=== PATIENT | male | born 1960 | race African-American/Black ===

== ENCOUNTER 2016-05-25 09:05 | Emergency (ER) | payer MEDICAID ==
[2016-05-25 09:28] VITALS: BP 102/67
[2016-05-25] MEDS ORDERED: ALBUTEROL SULFATE HFA (90 MCG/PUFF) 8 GM MDI (1 MDI/ER DISP) IH ONE (09:52)
[2016-05-25] MEDS ORDERED: PREDNISONE 20 MG TABLET PO ONE (09:52)
--- NOTE | 2016-05-25 09:52 | ER Document Report ---
ED Respiratory Problem - General Chief Complaint: Cold Symptoms Stated Complaint: FLU SYMPTOMS Time seen by provider: 09:40 Mode of Arrival: Ambulatory Information source: Patient, [facility] Records Notes: This 55-year-old male patient comes emergency room complaining of onset Monday of flulike symptoms with nasal congestion, cough, wheezing, pain crosses lower anterior chest from coughing. It hurts worse when he takes deep breath and coughs. He did not get a flu shot this year. He does smoke on a daily basis. He states he has never had problem wheezing in the past. TRAVEL OUTSIDE OF THE [place] IN LAST 30 DAYS: No - Related Data Allergies/Adverse Reactions: Penicillins Allergy (Verified 05/25/16 09:23) HIVES, RASH, FEELS LIKE ON FIRE Past Medical History - General Information source: Patient, [facility] Records - Social History Smoking Status: Current Every Day Smoker Cigarette use (# per day): Yes Chew tobacco use (# tins/day): No Smoking Education Provided: No Frequency of alcohol use: Occasional Drug Abuse: None Occupation: unemployed Lives with: Family Family History: Reviewed & Not Pertinent Patient has suicidal ideation: No Patient has homicidal ideation: No - Past Medical History Cardiac Medical History: Reports: None Pulmonary Medical History: Reports: None EENT Medical History: Reports: None Neurological Medical History: Reports: None Endocrine Medical History: Reports: None Renal/ Medical History: Reports: None GI Medical History: Reports: None Musculoskeltal Medical History: Reports Hx Arthritis, Reports Hx Musculoskeletal Trauma Psychiatric Medical History: Reports: None Traumatic Medical History: Reports: Hx Fractures - C-spinew FX's Past Surgical History: Reports: Hx Orthopedic Surgery - NECK SURGERY, RIGHT FOOT SURGERY, both shoulders - Immunizations Hx Diphtheria, Pertussis, Tetanus Vaccination: Yes Review of Systems - Review of Systems Constitutional: Chills, Fever, Other - Myalgia EENT: Nose discharge, Sinus discharge Cardiovascular: No symptoms reported Respiratory: Cough, Wheezing Gastrointestinal: No symptoms reported Genitourinary: No symptoms reported Musculoskeletal: No symptoms reported Skin: No symptoms reported Hematologic/Lymphatic: No symptoms reported Neurological/Psychological: No symptoms reported Physical Exam - Vital signs Vitals: Temp Pulse Resp BP Pulse Ox 98.4 F 112 H 18 102/67 96 05/25/16 09:22 05/25/16 09:22 05/25/16 09:22 05/25/16 09:22 05/25/16 09:22 Interpretation: Normal - General General appearance: Appears well, Alert In distress: None - HEENT Head: Normocephalic, Atraumatic Eyes: Normal Pupils: PERRL Tympanic membrane: Retracted Nasal: Other - Some nasal and sinus congestion Pharynx: Erythema. No: Exudate, Uvular edema Neck: Normal - Respiratory Respiratory status: No respiratory distress Chest status: Tender Breath sounds: Nonproductive cough, Rhonchi, Wheezing - Cardiovascular Rhythm: Regular - Abdominal Inspection: Normal - Back Back: Normal - Extremities General upper extremity: Normal inspection General lower extremity: Normal inspection - Neurological Neuro grossly intact: Yes - Psychological Associated symptoms: Normal affect, Normal mood - Skin Skin Temperature: Warm Skin Moisture: Dry Skin Color: Normal Course - Vital Signs Vital signs: Temp Pulse Resp BP Pulse Ox 98.4 F 112 H 18 102/67 96 05/25/16 09:22 05/25/16 09:22 05/25/16 09:22 05/25/16 09:22 05/25/16 09:22 Discharge - Discharge Clinical Impression: Influenza, Bronchitis with bronchospasm Condition: Good Disposition: HOME, SELF-CARE Additional Instructions: Bronchitis with Bronchospasm (Wheezing): You have bronchitis with bronchospasm (wheezing). Sometimes people develop wheezing with a chest cold. This occurs either because of an underlying tendency toward asthma or because the virus itself irritates the bronchial tubes. This irritation causes cough, shortness of breath, and wheezing. Emergency treatment of bronchospasm may include adrenaline shots or bronchodilator aerosol. You may feel lightheaded and have a rapid pulse for an hour or two. Rest and get plenty of fluids. At home, we'll treat you with a bronchodilator inhaler. Corticosteroids may be required for some patients. Until you recover, avoid chemical fumes, dusts, pollens, and exercising in very cold or dry air. If you smoke, stop now! Most cases of bronchitis get better without antibiotics. We prescribe antibiotics when we believe bacteria are damaging your airways, or if there's high risk the bronchitis will worsen into pneumonia. Increase your fluid intake. A cool mist humidifier may make your lungs more comfortable. An expectorant (cough medicine that loosens phlegm) can help. Repeated episodes of bronchitis and bronchospasm may result in lung damage -- for example, chronic bronchitis, recurrent pneumonias, or emphysema. If you develop a fever, increased wheezing, chest pain, or severe shortness of breath, you should contact the doctor immediately. Influenza: What are conditions that should receive medical attention? The development of difficulty breathing. Lip color changes to blue or purple. Persistent vomiting and unable to keep liquids down with signs of dehydration such as: dizziness when standing, unable to urinate, or if child/ is crying no tears are noticed. Is less responsive than normal or becomes confused. How do I decrease the spread of flu in my home? Taking care of the sick patient at home: Keep the sick person in a room separate from the common areas of the house. Keep the "sickroom" door closed. If the person with the flu needs to leave the home, they should cover their nose/mouth when coughing or sneezing and wear a disposable (surgical) mask if available. These masks may be available at your local pharmacy, medical supply and hardware store. If the sick person is in common areas of the house, have them wear a surgical mask. If possible, have the sick person use a separate bathroom that should be cleaned daily with a household disinfectant. Household Cleaning, laundry and waste disposal: Tissues and other disposable items used by the sick person should be thrown away in the trash. Wash your hands after touching these used items. No special waste disposal is required. Keep surfaces (especially bedside tables, bathroom surfaces, and toys for children) clean by wiping them down with a safe household disinfectant according to the directions on the product label. Per CDC advice, most people will not receive testing to confirm flu. For more information, you can call the Centers for Disease Control and Prevention (CDC) Hotline at 9-022-AYP-INFO This line is available in Latvian and Estonian, 24 hours a day, 7 days a week. Or www.[employer] or www.cdc.gov Flu-Like Illness Home Instructions: The influenza virus infection can cause a wide rage of symptoms, including: Fever, cough, sore throat, body aches, headaches, chills, fatigue, with some patients reporting diarrhea and vomiting Like seasonal influenza A, H1N1 ("swine flu")in humans can vary in severity from mild to severe Severe illness with pneumonia, respiratory failure and even is possible Certain groups might be more likely to develop a severe illness from H1N1 infection. Sometimes bacterial infections may occur at the same time as or after infection with influenza viruses and lead to pneumonias, ear infections, or sinus infections. How Flu Spreads The main way that influenza viruses spread is through respiratory droplets of coughs and sneezes. This can happen when someone with the infection coughs or sneezes and the particles fly through the air and land on other people and surfaces. If the person covers their mouth and nose with their hand but does not wash their hands immediately, then these germs are passed onto the next object that they touch. People with Influenza A who are cared for at home should: Check with their doctor about any special care that they might need if they are or have a health condition such as diabetes, heart disease, asthma or emphysema. Also, limit caregiver to one (if possible). women or those with chronic health conditions should not take care of the flu patient unless necessary. Check with their doctor about whether or not medications are needed that may lessen the symptoms of the flu. Stay at home until 24 hours fever free without the use of fever reducing medication. Get plenty of rest and avoid other healthy people in your home. Drink plenty of clear liquids to keep from getting dehydrated. Take medications like Tylenol (Acetaminophen), Advil/Motrin/Nuprin ( Ibuprofen) or Aleve (Naproxen) for fevers and aches. All children under the age of 18 years of age should not take aspirin or products containing aspirin (e.g. Pepto Bismol), as this can cause a rare serious illness called Jay Syndrome. Over the counter medications for flu and colds may help, but it is very important to follow the package directions. Remember that the medicine may help the symptoms, but it will not help prevent others from getting sick if they are around you. Cover coughs and sneezes using your bent arm. Clean hands with soap and water or an alcohol-based hand rub often, especially after using tissues to cough or sneeze. Encourage hand washing frequently for all people living in the home! The sick person should not have visitors other than caregivers. Encourage concerned loved ones to call instead of visit. Avoid close contact with others-do not go to work or school while sick. TAKE THE MEDICATION PRESCRIBED--START THE PREDNISONE TOMORROW USE THE INHALER 2 PUFFS EVERY FOUR HOURS FOR WHEEZING. TAKE TYLENOL EVERY FOUR HOURS FOR FEVER. TAKE 2 ALEVE EVERY 12 HOURS FOR PAIN CONTROL. DRINK PLENTY OF FLUIDS. TRY ROBITUSSIN-DM FOR COUGH CONTROL. GET PLENTY OF REST AND SLEEP. GET A FLU SHOT NEXT YEAR. RETURN TO THE EMERGENCY ROOM IF ANY NEW OR WORSENING SYMPTOMS. Prescriptions: Prednisone [Deltasone 10 mg Tablet] 10 mg PO ASDIR PRN #15 tablet PRN Reason: Referrals: MOSHE ELY MD [Primary Care Provider] - Follow up as needed
[2016-05-25] MEDS ORDERED: NAPROXEN 250 MG TABLET PO ONE (09:54)
== END 2016-05-25 10:07 | disposition home or self-care (01) ==
LOC: ER 09:05
DX: J11.1 Influenza due to unidentified influenza virus with other respiratory manifestations (principal); J40 Bronchitis, not specified as acute or chronic; J98.01 Acute bronchospasm; R09.81 Nasal congestion; R05 Cough; R06.2 Wheezing; R07.9 Chest pain, unspecified; F17.210 Nicotine dependence, cigarettes, uncomplicated
CPT/HCPCS: 99283; J3490 ×2; J7512

== ENCOUNTER 2019-09-06 10:43 | Emergency (ER) | payer SELFPAY ==
--- NOTE | 2019-09-06 10:57 | ER Document Report ---
ED Medical Screen (RME) - General Chief Complaint: Urinary Problem Stated Complaint: URINARY PROBLEM Time Seen by Provider: 09/06/19 10:55 Primary Care Provider: MOSHE ELY MD [Primary Care Provider] - Follow up as needed Information source: Patient TRAVEL OUTSIDE OF THE [place] IN LAST 30 DAYS: No - HPI Patient complains to provider of: Bright red blood per rectum Severity: Moderate Notes: 09/06/19 10:56 Is 59-year-old male presents to the emergency room today said he had bright red blood per rectum felt that it was a significant amount happened twice once a day before yesterday once today did not turn the whole bowl red however there was dark red blood consistent with jelly type substance 09/06/19 10:57 I greeted and performed a rapid initial assessment of this patient. Comprehensive ED assessment and evaluation of the patient, analysis of test results and completion of the medical decision making process will be conducted by additional ED providers. - Related Data Allergies/Adverse Reactions: Penicillins Allergy (Verified 05/25/16 09:23) HIVES, RASH, FEELS LIKE ON FIRE Past Medical History - Past Medical History Cardiac Medical History: Denies: Hx Coronary Artery Disease, Hx Heart Attack, Hx Hypertension Pulmonary Medical History: Denies: Hx Asthma, Hx Bronchitis, Hx COPD, Hx Pneumonia, Hx Tuberculosis Neurological Medical History: Denies: Hx Cerebrovascular Accident, Hx Seizures Endocrine Medical History: Denies: Hx Diabetes Mellitus Type 1, Hx Diabetes Mellitus Type 2 Renal/ Medical History: Denies: Hx Peritoneal Dialysis GI Medical History: Denies: Hx Hepatitis, Hx Hiatal Hernia, Hx Ulcer Musculoskeltal Medical History: Reports Hx Arthritis, Reports Hx Musculoskeletal Trauma Traumatic Medical History: Reports: Hx Fractures - C-spinew FX's Infectious Medical History: Denies: Hx Hepatitis Past Surgical History: Reports: Hx Orthopedic Surgery - NECK SURGERY, RIGHT FOOT SURGERY. Denies: Hx Open Heart Surgery, Hx Pacemaker - Immunizations Hx Diphtheria, Pertussis, Tetanus Vaccination: Yes Doctor's Discharge - Discharge Referrals: MOSHE ELY MD [Primary Care Provider] - Follow up as needed
[2019-09-06 11:24] LABS: HEMATOCRIT 35.5 % (37.9-51.0); MEAN CORPUSCULAR HEMOGLOBIN 29.1 pg (27.0-33.4); MEAN CORPUSCULAR HGB CONC 33.8 g/dL (32.0-36.0); MEAN CORPUSCULAR VOLUME 86 fl (80-97); PLATELET COUNT 202 10^3/uL (150-450); RED BLOOD COUNT 4.12 10^6/uL (4.35-5.55); RED CELL DISTRIBUTION WIDTH 16.2 % (11.5-14.0)
[2019-09-06 11:32] LABS: APPEARANCE,URINE CLEAR; BILIRUBIN,URINE NEGATIVE (NEGATIVE); COLOR,URINE YELLOW; GLUCOSE, URINE NEGATIVE (NEGATIVE); KETONES,URINE NEGATIVE (NEGATIVE); LEUKOCYTE ESTERASE,URINE NEGATIVE (NEGATIVE); NITRITE,URINE NEGATIVE (NEGATIVE); PROTEIN,URINE NEGATIVE (NEGATIVE); URINE SPECIFIC GRAVITY 1.012; UROBILINOGEN,URINE NEGATIVE mg/dL (<2.0)
[2019-09-06 11:45] LABS: ABSOLUTE MONOCYTES # (MANUAL) 0.4 10^3/uL (0.1-1.4); BASOPHILS % (MANUAL) 0 % (0-2); EOSINOPHILS % (MANUAL) 1 % (0-6); LYMPHOCYTES % (MANUAL) 36 % (13-45); MONOCYTES % (MANUAL) 8 % (3-13); SEGMENTED NEUTROPHILS % (MAN) 52 % (42-78); TOTAL CELLS COUNTED 100
[2019-09-06 11:46] LABS: ALBUMIN 4.1 g/dL (3.5-5.0); ALKALINE PHOSPHATASE 66 U/L (38-126); ANION GAP 5 (5-19); ASPARTATE AMINO TRANSFERASE 40 U/L (17-59); BILIRUBIN,TOTAL 0.3 mg/dL (0.2-1.3); BLOOD UREA NITROGEN 19 mg/dL (7-20); CALCIUM 9.5 mg/dL (8.4-10.2); CARBON DIOXIDE 23 mmol/L (22-30); CHLORIDE 107 mmol/L (98-107); GLUCOSE 173 mg/dL (75-110); POTASSIUM 4.2 mmol/L (3.6-5.0); TOTAL PROTEIN 7.5 g/dL (6.3-8.2)
[2019-09-06 11:48] LABS: ANISOCYTOSIS 1+; BURR CELLS SLIGHT; OVALOCYTES SLIGHT; PLATELET COMMENT ADEQUATE; PLATELET LARGE PRESENT; POIKILOCYTOSIS 1+; SCHISTOCYTES SLIGHT; TARGET CELLS SLIGHT
--- NOTE | 2019-09-06 12:56 | ER Document Report ---
ED GI Bleed / Rectal Pain - General Chief Complaint: Rectal Bleeding Stated Complaint: URINARY PROBLEM Time Seen by Provider: 09/06/19 10:55 Primary Care Provider: MOSHE ELY MD [Primary Care Provider] - Follow up as needed Notes: D9-year-old male presents to the emergency department with a complaint of blood in the stools he had one episode 2 days ago and then he noted another episode today. He notes that the episodes only occur when he has a bowel movement. He denies a history of GI bleed in the past. He had colonoscopy performed about 8 years ago which was normal. He feels fine denies dizziness lightheadedness chest pain or shortness of breath. TRAVEL OUTSIDE OF THE [place] IN LAST 30 DAYS: No - Related Data Allergies/Adverse Reactions: Penicillins Allergy (Verified 05/25/16 09:23) HIVES, RASH, FEELS LIKE ON FIRE Past Medical History - General Information source: Patient - Social History Smoking Status: Current Every Day Smoker Family History: Reviewed & Not Pertinent Patient has homicidal ideation: No - Past Medical History Cardiac Medical History: Denies: Hx Coronary Artery Disease, Hx Heart Attack, Hx Hypertension Pulmonary Medical History: Denies: Hx Asthma, Hx Bronchitis, Hx COPD, Hx Pneumonia, Hx Tuberculosis Neurological Medical History: Denies: Hx Cerebrovascular Accident, Hx Seizures Endocrine Medical History: Denies: Hx Diabetes Mellitus Type 1, Hx Diabetes Mellitus Type 2 Renal/ Medical History: Denies: Hx Peritoneal Dialysis GI Medical History: Denies: Hx Hepatitis, Hx Hiatal Hernia, Hx Ulcer Musculoskeletal Medical History: Reports Hx Arthritis, Reports Hx Musculoskeletal Trauma Traumatic Medical History: Reports: Hx Fractures - C-spinew FX's Infectious Medical History: Denies: Hx Hepatitis Past Surgical History: Reports: Hx Orthopedic Surgery - NECK SURGERY, RIGHT FOOT SURGERY. Denies: Hx Open Heart Surgery, Hx Pacemaker - Immunizations Hx Diphtheria, Pertussis, Tetanus Vaccination: Yes Review of Systems - Review of Systems Notes: Constitutional: Negative for fever. HENT: Negative for sore throat. Eyes: Negative for visual changes. Cardiovascular: Negative for chest pain. Respiratory: Negative for shortness of breath. Gastrointestinal: + Rectal bleeding Genitourinary: Negative for dysuria. Musculoskeletal: Negative for back pain. Skin: Negative for rash. Neurological: Negative for headaches, weakness or numbness. 10 point ROS negative except as marked above and in HPI. Physical Exam - Vital signs Vitals: Temp 97.5 F 09/06/19 10:53 - Notes Notes: PHYSICAL EXAMINATION: Physical Exam: General: Well-nourished well-developed in no acute distress HEENT: NC/AT, pupils equal round and reactive to light, MM moist,nares clear, oropharynx clear, airway patent Neck: supple, no adenopathy, no masses. Good range of motion Lungs: clear, no wheezing, no rales no rhonchi CVS: Regular rate and rhythm no murmur gallop or rub Abdomen: Soft, active, nontender, no masses, no hepatosplenomegaly rectal exam: Small internal hemorrhoid at the superior margin of the rectum, stool is heme- negative. Ext: No edema, clubbing or cyanosis. Neuro: Alert and responsive, moving all 4 extremities on command, cranial nerves intact, no focal findings Skin: Intact no open lesions, no rash PSYCH: Normal mood, normal affect. Course - Vital Signs Vital signs: Temp Pulse Resp BP Pulse Ox 97.5 F 80 16 127/83 H 98 09/06/19 10:58 09/06/19 10:58 09/06/19 10:58 09/06/19 10:58 09/06/19 10:58 - Laboratory Result Diagrams: 09/06/19 11:11 09/06/19 11:11 Laboratory results interpreted by me: 09/06/19 09/06/19 11:11 11:11 RBC 4.12 L Hgb 12.0 L Hct 35.5 L RDW 16.2 H Sodium 135.4 L Est GFR (MDRD) Non-Af 59 L Glucose 173 H 09/06/19 14:03 I have reviewed laboratory data and used this information for the treatment decisions regarding the patient. Discharge - Discharge Clinical Impression: Rectal bleeding Condition: Good Disposition: HOME, SELF-CARE Instructions: Rectal Bleeding, Unclear Cause ([facility]) Additional Instructions: You were seen in the emergency department today with rectal bleeding. Your blood count is stable and you are not anemic. Given that you are having no other symptoms you are being discharged home to follow-up with your primary care doctor as an outpatient. If your symptoms are worsening or if you have other concerns you may return to the emergency department for further evaluation and treatment. HOME CARE INSTRUCTIONS & INFORMATION: Thank you for choosing us for your medical needs. We hope you're satisfied with the care you received. After you leave, you must properly care for your problem and, at the same time, observe its progress. Any condition can change. Some illnesses can change rapidly over hours or days. If your condition worsens, return to the Emergency Department or see your physician promptly. ABOUT YOUR X-RAYS AND EKG'S: If you had an EKG or X-rays taken, they have been read by the Emergency Physician. The X-rays and EKG's will also be read by a Radiologist or Business Continuity Director within 24 hours. If discrepancies are noted, you will be notified by telephone. Please be certain the ED has a correct telephone number & address where you can be reached. Also, realize that some fractures or abnormalities do not show up on initial X-rays. If your symptoms continue, see your physician. ABOUT YOUR LABORATORY TEST: If you had laboratory tests, the results have been reviewed by the Emergency Physician. Some test results (for example cultures) may not be available for several days. You will be contacted if any test result shows you need additional treatment. Please be certain the ED has a correct telephone number and address where you can be reached. ABOUT YOUR MEDICATIONS: You will receive instructions on how to take your medicine on the prescription label you receive. Additional information may be provided by the Pharmacy. If you have questions afterwards, call the ED for clarification or further instructions. Some prescribed medications may cause drowsiness. Do not perform tasks such as driving a car or operating machinery without consulting your Pharmacist. If you feel you need a refill of pain medication, your condition will need re-evaluation. Please do not call for a refill of any medication. ABOUT YOUR SIGNATURE: Signature of this document acknowledges to followin. Understanding that you received emergency treatment and that you may be released before al medical problems are known or treated. Please be certain the ED has a correct phone number & address where you can be reached. 2. Acknowledgement that you will arrange for follow-up care as recommended. 3. Authorization for the Emergency Physician to provide information to your follow-up Physician in order to maximize your care. AT ANY TIME, IF YOUR SYMPTOMS CHANGE SIGNIFICANTLY OR WORSEN OR YOU DEVELOP NEW SYMPTOMS, RETURN TO THE EMERGENCY DEPARTMENT IMMEDIATELY FOR RE-EVALUATION. OUR GOAL IS TO PROVIDE EXCELLENT MEDICAL CARE! WE HOPE THAT WE HAVE MET YOUR EXPECTATIONS DURING YOUR EMERGENCY DEPARTMENT VISIT AND THAT YOU FEEL YOU HAVE RECEIVED EXCELLENT CARE! Referrals: MOSHE ELY MD [Primary Care Provider] - Follow up as needed
[2019-09-06 14:54] VITALS: BP 126/78
== END 2019-09-06 14:54 | disposition home or self-care (01) ==
LOC: ER 10:43
DX: K62.5 Hemorrhage of anus and rectum (principal); K64.8 Other hemorrhoids; F17.200 Nicotine dependence, unspecified, uncomplicated; Z88.0 Allergy status to penicillin
CPT/HCPCS: 36415; 80053; 81001; 82270; 85025; 99283

== ENCOUNTER 2019-10-21 05:55 | Emergency (ER) | payer SELFPAY ==
[2019-10-21] MEDS ORDERED: LIDOCAINE 2% INJ (20 MG/ML) 20 ML MDV INJ ONE (09:24)
[2019-10-21] MEDS ORDERED: DIPH/PERTUSS(ACELL)/TETANUS VAC/PF 0.5 ML SYR (>=10YO) IM ONE (09:28)
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
[2019-10-21 11:39] VITALS: BP 127/78
== END 2019-10-21 11:55 | disposition home or self-care (01) ==
LOC: ER 05:55
PROC: 0HQ1XZZ Repair Face Skin, External Approach (ICD-10-PCS; principal; 2019-10-21)
PROC: 0HQKXZZ Repair Right Lower Leg Skin, External Approach (ICD-10-PCS; 2019-10-21)
DX: S01.112A Laceration without foreign body of left eyelid and periocular area, initial encounter (principal); S81.811A Laceration without foreign body, right lower leg, initial encounter; Y04.0XXA Assault by unarmed brawl or fight, initial encounter; Z88.0 Allergy status to penicillin; F17.200 Nicotine dependence, unspecified, uncomplicated
CPT/HCPCS: 99284; 90471; 90715; 12013; 12002; J3490

== ENCOUNTER 2019-12-09 01:35 | Emergency (ER) | payer SELFPAY ==
--- NOTE | 2019-12-09 02:15 | ER Document Report ---
ED Extremity Problem, Upper - General Chief Complaint: Shoulder Injury Stated Complaint: R SHOULDER PAIN Time Seen by Provider: 12/09/19 02:14 TRAVEL OUTSIDE OF THE [place] IN LAST 30 DAYS: No - HPI Notes: 59-year-old male presents with right shoulder pain. Patient states that he was at home, he opened the door and his 70 pound dog quickly ran through his legs and tripped him. This caused him to fall on his right shoulder onto the driveway. He denies hitting his head, denies loss of consciousness. He reports pain and swelling to the right shoulder, increases with movement. Did not take any medication prior to arrival. He states that he has had surgery to this shoulder, he states he was told the doctor "repaired what he could" and that "the next option would be a shoulder replacement for [id number]". Patient is right-handed. He admits to drinking 5-6 beers tonight. Reports he last received a tetanus about a month ago. - Related Data Allergies/Adverse Reactions: Penicillins Allergy (Verified 05/25/16 09:23) HIVES, RASH, FEELS LIKE ON FIRE Past Medical History - General Information source: Patient - Social History Smoking Status: Current Some Day Smoker Frequency of alcohol use: Social Drug Abuse: Marijuana Family History: Reviewed & Not Pertinent - Past Medical History Cardiac Medical History: Denies: Hx Coronary Artery Disease, Hx Heart Attack, Hx Hypertension Pulmonary Medical History: Denies: Hx Asthma, Hx Bronchitis, Hx COPD, Hx Pneumonia, Hx Tuberculosis Neurological Medical History: Denies: Hx Cerebrovascular Accident, Hx Seizures Endocrine Medical History: Denies: Hx Diabetes Mellitus Type 1, Hx Diabetes Mellitus Type 2 Renal/ Medical History: Denies: Hx Peritoneal Dialysis GI Medical History: Denies: Hx Hepatitis, Hx Hiatal Hernia, Hx Ulcer Musculoskeletal Medical History: Reports Hx Arthritis, Reports Hx Musculoskeletal Trauma Traumatic Medical History: Reports: Hx Fractures - C-spinew FX's Infectious Medical History: Denies: Hx Hepatitis Past Surgical History: Reports: Hx Appendectomy, Hx Orthopedic Surgery - NECK SURGERY, RIGHT FOOT SURGERY. Denies: Hx Open Heart Surgery, Hx Pacemaker - Immunizations Hx Diphtheria, Pertussis, Tetanus Vaccination: Yes Review of Systems - Review of Systems Constitutional: No symptoms reported EENT: No symptoms reported Cardiovascular: No symptoms reported Respiratory: No symptoms reported Gastrointestinal: No symptoms reported Musculoskeletal: Joint pain, Joint swelling Skin: Other - Wound Neurological/Psychological: denies: Headaches Physical Exam - Vital signs Vitals: Temp Resp BP Pulse Ox 98.2 F 12 122/81 98 12/09/19 01:47 12/09/19 01:47 12/09/19 01:47 12/09/19 01:47 - General General appearance: Appears well, Alert - HEENT Head: Normocephalic, Other - Abrasion and mild swelling to left restoration Extraocular movements intact: Yes Pupils: PERRL Neck: Other - No midline tenderness - Respiratory Chest status: Nontender Breath sounds: Normal - Cardiovascular Rhythm: Regular Pulses: Normal: Radial - Abdominal Tenderness: Nontender - Back Back: Nontender - Extremities Notes: Tenderness diffusely to right shoulder, grossly no deformity, no sulcus sign. No wounds. Decreased range of motion due to pain. Strong right hand grasp. Elbow/forearm/wrist/hand nontender. - Neurological Neuro grossly intact: Yes Cognition: Normal Orientation: AAOx4 - Psychological Associated symptoms: Normal affect - Skin Skin Temperature: Warm Notes: Abrasion to right knee Course - Re-evaluation Re-evalutation: 59-year-old male had a fall from standing, landing onto his right shoulder, now has pain. He does have generalized tenderness to the right shoulder, I do not appreciate any obvious deformity. He has intact range of motion and strength to his distal right arm. Will obtain x-ray to evaluate for fracture versus lower suspicion for dislocation. Contusion possible as well. Given that he has had alcohol and has an abrasion to his left restoration, will obtain CT head to rule out bleed. He is grossly neurologically intact GCS 15. Will treat pain and keep n.p.o. until films have resulted. 12/09/19 03:22 X-ray shoulder reviewed. Per radiology there appears to be slightly impacted humeral head/neck fracture. CT head is negative for bleed. 12/09/19 03:45 Went in to update patient on results. Advised him to have some close Ortho follow-up and will prescribe medications for pain. Patient refusing a prescription, he does not swallow pills. I will give him a dose of Toradol now to further help with pain control. Sling has been applied. 12/09/19 04:31 Patient is now agreeable for a prescription for pain medication, will write short course of [place]. Again discussed with him need to keep arm in sling and follow-up with orthopedics. I have provided contact information. Return precautions given, stable at time of discharge. - Vital Signs Vital signs: Temp Pulse Resp BP Pulse Ox 98.2 F 12 122/81 98 12/09/19 01:47 12/09/19 01:47 12/09/19 01:47 12/09/19 01:47 - Diagnostic Test Radiology reviewed: Image reviewed, Reports reviewed Discharge - Discharge Clinical Impression: Fracture of humeral head, right, closed Qualifiers: Encounter type: initial encounter Qualified Code(s): S42.291A - Other displaced fracture of upper end of right humerus, initial encounter for closed fracture Condition: Stable Disposition: HOME, SELF-CARE Instructions: Sling as Treatment ([facility]) Additional Instructions: Use pain medication as needed. Please follow-up with orthopedic surgery. Return to the emergency department for any concerning worsening symptoms. Prescriptions: Hydrocodone/Acetaminophen [[place] 5-325 mg Tablet] 1 tab PO Q4H PRN #15 tablet PRN Reason: For Pain Referrals: ALEJO ELY JR, DO [ACTIVE PROVISIONAL STAFF] - Follow up as needed
[2019-12-09] MEDS ORDERED: FENTANYL CITRATE INJ/PF 100 MCG/2 ML AMPUL IV ONE (02:21)
--- NOTE | 2019-12-09 02:35 | RADIOLOGY REPORT (SQ) ---
EXAM DESCRIPTION: XR SHOULDER 2 OR MORE VIEWS COMPLETED DATE/TME: 12/09/2019 01:47 CLINICAL HISTORY: 59 years, Male, DEFORMITY COMPARISON: None. NUMBER OF VIEWS: 3 TECHNIQUE: 3 view right shoulder LIMITATIONS: None. FINDINGS: Osteopenia. Degenerative changes of the acromioclavicular and glenohumeral joints. Postsurgical change consistent with rotator cuff anchor. There appears to be an impacted fracture of the proximal humeral head/neck with a displaced fracture fragment extending medially from the proximal humeral neck. No dislocation. Degenerative changes of the acromial clavicular joint IMPRESSION: Osteopenia with slightly impacted humeral neck fracture. Displaced fracture fragment medially. copyright 2010 [employer]- All Rights Reserved
--- NOTE | 2019-12-09 02:57 | RADIOLOGY REPORT (SQ) ---
EXAM DESCRIPTION: CT HEAD WITHOUT IV CONTRAST COMPLETED DATE/TME: 12/09/2019 02:21 CLINICAL HISTORY: 59 years, Male, fall, L head trauma COMPARISON: None. TECHNIQUE: 199 Images stored on PACS. All CT scanners at this facility use dose modulation, iterative reconstruction, and/or weight based dosing when appropriate to reduce radiation dose to as low as reasonably achievable (ALARA). [facility]: Dose Right [facility]: CareDose [facility]: Dose Right [facility]: Teradose 4D [facility]: W[employer] LIMITATIONS: None. FINDINGS: The globes are intact. Polyp of the right maxillary sinus. No displaced or depressed skull fracture. Left parietal scalp hematoma. No acute intracranial hemorrhage. CT is limited for evaluation of acute infarct. No CT evidence for large or territorial acute infarct. No mass or midline shift IMPRESSION: Left parietal scalp hematoma. No acute intracranial abnormality TECHNICAL DOCUMENTATION: Quality ID # [id number]: Final reports with documentation of one or more dose reduction techniques (e.g., Automated exposure control, adjustment of the mA and/or kV according to patient size, use of iterative reconstruction technique) copyright 2011 [employer]- All Rights Reserved
--- NOTE | 2019-12-09 03:12 | RADIOLOGY REPORT (SQ) ---
EXAM DESCRIPTION: XR HUMERUS COMPLETED DATE/TME: 12/09/2019 02:24 CLINICAL HISTORY: 59 years, Male, fall COMPARISON: Shoulder x-ray today's date NUMBER OF VIEWS: 2 TECHNIQUE: 2 view right humerus LIMITATIONS: None. FINDINGS: Osteopenia. Postsurgical change of the proximal humerus consistent with rotator cuff repair. Avulsion fracture is suggested from the proximal humeral neck, of indeterminate donor. Consider follow-up with dedicated CT. No dislocation. Degenerative changes of the shoulder joint IMPRESSION: Findings suggestive of avulsion fracture in the region of the proximal humeral neck. Donor site is indeterminate. No dislocation. Osteopenia with degenerative change copyright 2010 [employer]- All Rights Reserved
[2019-12-09] MEDS ORDERED: KETOROLAC TROMETHAMINE INJ/PF 30 MG/1 ML SDV IV ONE (03:45)
[2019-12-09 05:03] VITALS: BP 123/79
== END 2019-12-09 05:01 | disposition home or self-care (01) ==
LOC: ER 01:35
DX: S42.291A Other displaced fracture of upper end of right humerus, initial encounter for closed fracture (principal); S00.81XA Abrasion of other part of head, initial encounter; S80.211A Abrasion, right knee, initial encounter; R22.0 Localized swelling, mass and lump, head; W01.0XXA Fall on same level from slipping, tripping and stumbling without subsequent striking against object, initial encounter; Y92.008 Other place in unspecified non-institutional (private) residence as the place of occurrence of the external cause; F17.200 Nicotine dependence, unspecified, uncomplicated; Z88.0 Allergy status to penicillin
CPT/HCPCS: 99285; 96374; 96375; 73060; 73030; 70450; J3010; J1885

== ENCOUNTER 2020-01-13 12:50 | Inpatient (IN) | payer SELFPAY ==
--- NOTE | 2020-01-13 13:31 | ER Document Report ---
ED Medical Screen (RME) - General Chief Complaint: Shortness Of Breath Stated Complaint: SHORT OF BREATH,COUGH Time Seen by Provider: 01/13/20 13:25 Mode of Arrival: Ambulatory Information source: Patient Notes: 59-year-old male patient presenting to the emergency department with fatigue, weight loss, shortness of breath, occasional cough and a few episodes of diarrhea. Patient states he is worried he might have coronavirus. He denies any history of breathing issues to include asthma or COPD. He states the shortness of breath is worse when he lies down. He denies any fever, chills or body aches. Lung sounds are clear and equal bilaterally. Heart sounds S1-S2 present, normal rate, normal rhythm. I have greeted and performed a rapid initial assessment of this patient. A comprehensive ED assessment and evaluation of the patient, analysis of test results and completion of the medical decision making process will be conducted by additional ED providers. I have specifically instructed the patient or family members with the patient to immediately return to any nursing staff should anything change in the patient's condition or with their chief complaint. TRAVEL OUTSIDE OF THE [place] IN LAST 30 DAYS: No - Related Data Allergies/Adverse Reactions: Penicillins Allergy (Verified 05/25/16 09:23) HIVES, RASH, FEELS LIKE ON FIRE Past Medical History - Social History Frequency of alcohol use: Social Drug Abuse: Marijuana - Past Medical History Cardiac Medical History: Denies: Hx Coronary Artery Disease, Hx Heart Attack, Hx Hypertension Pulmonary Medical History: Denies: Hx Asthma, Hx Bronchitis, Hx COPD, Hx Pneumonia, Hx Tuberculosis Neurological Medical History: Denies: Hx Cerebrovascular Accident, Hx Seizures Endocrine Medical History: Denies: Hx Diabetes Mellitus Type 1, Hx Diabetes Mellitus Type 2 Renal/ Medical History: Denies: Hx Peritoneal Dialysis GI Medical History: Denies: Hx Hepatitis, Hx Hiatal Hernia, Hx Ulcer Musculoskeltal Medical History: Reports Hx Arthritis, Reports Hx Musculoskeletal Trauma Traumatic Medical History: Reports: Hx Fractures - C-spinew FX's Infectious Medical History: Denies: Hx Hepatitis Past Surgical History: Reports: Hx Appendectomy, Hx Orthopedic Surgery - NECK SURGERY, RIGHT FOOT SURGERY. Denies: Hx Open Heart Surgery, Hx Pacemaker - Immunizations Hx Diphtheria, Pertussis, Tetanus Vaccination: Yes Physical Exam - Vital signs Vitals: Temp Pulse Resp BP Pulse Ox 98.1 F 92 16 119/85 99 01/13/20 13:08 01/13/20 13:08 01/13/20 13:08 01/13/20 13:08 01/13/20 13:08 Course - Vital Signs Vital signs: Temp Pulse Resp BP Pulse Ox 98.1 F 92 16 119/85 99 01/13/20 13:08 01/13/20 13:08 01/13/20 13:08 01/13/20 13:08 01/13/20 13:08
--- NOTE | 2020-01-13 15:25 | RADIOLOGY REPORT (SQ) ---
EXAM DESCRIPTION: CHEST SINGLE VIEW IMAGES COMPLETED DATE/TIME: 01/13/2020 3:18 pm REASON FOR STUDY: shortness of breath COMPARISON: 12/15/2015 EXAM PARAMETERS: NUMBER OF VIEWS: One view. TECHNIQUE: Single frontal radiographic view of the chest acquired. RADIATION DOSE: NA LIMITATIONS: None. FINDINGS: LUNGS AND PLEURA: Small pleural effusions. No consolidation. No pneumothorax. MEDIASTINUM AND HILAR STRUCTURES: No masses. Contour normal. HEART AND VASCULAR STRUCTURES: Mild cardiac enlargement. No failure. BONES: No acute findings. HARDWARE: None in the chest. OTHER: No other significant finding. IMPRESSION: Small bilateral pleural effusions. Mild cardiomegaly. TECHNICAL DOCUMENTATION: JOB ID: [id number] 2010 [employer]- All Rights Reserved Reading location - IP/workstation name: [email or web address]
[2020-01-13 16:55] LABS: HEMATOCRIT 37.3 % (37.9-51.0); HEMOGLOBIN 12.1 g/dL (13.5-17.0); MEAN CORPUSCULAR HEMOGLOBIN 28.9 pg (27.0-33.4); MEAN CORPUSCULAR HGB CONC 32.5 g/dL (32.0-36.0); MEAN CORPUSCULAR VOLUME 89 fl (80-97); PLATELET COUNT 221 10^3/uL (150-450); RED BLOOD COUNT 4.19 10^6/uL (4.35-5.55); RED CELL DISTRIBUTION WIDTH 16.4 % (11.5-14.0); WHITE BLOOD COUNT 5.4 10^3/uL (4.0-10.5)
[2020-01-13 16:57] LABS: ALBUMIN 3.8 g/dL (3.5-5.0); ALKALINE PHOSPHATASE 105 U/L (38-126); ANION GAP 7 (5-19); ASPARTATE AMINO TRANSFERASE 32 U/L (17-59); BILIRUBIN,DIRECT 0.2 mg/dL (0.0-0.4); BILIRUBIN,TOTAL 0.7 mg/dL (0.2-1.3); BLOOD UREA NITROGEN 20 mg/dL (7-20); CALCIUM 9.5 mg/dL (8.4-10.2); CARBON DIOXIDE 23 mmol/L (22-30); CHLORIDE 108 mmol/L (98-107); GLUCOSE 113 mg/dL (75-110); POTASSIUM 4.5 mmol/L (3.6-5.0); TOTAL PROTEIN 6.9 g/dL (6.3-8.2)
[2020-01-13 17:04] LABS: A TYPE INFLUENZA AG NEGATIVE (NEGATIVE); B INFLUENZA AG NEGATIVE (NEGATIVE)
[2020-01-13 17:27] LABS: ABSOLUTE LYMPHOCYTES# (MANUAL) 1.8 10^3/uL (0.5-4.7); ABSOLUTE MONOCYTES # (MANUAL) 0.3 10^3/uL (0.1-1.4); BASOPHILS % (MANUAL) 0 % (0-2); EOSINOPHILS % (MANUAL) 4 % (0-6); LYMPHOCYTES % (MANUAL) 31 % (13-45); MONOCYTES % (MANUAL) 5 % (3-13); SEGMENTED NEUTROPHILS % (MAN) 58 % (42-78); TOTAL CELLS COUNTED 100
[2020-01-13 17:28] LABS: ANISOCYTOSIS 2+; BURR CELLS SLIGHT; HELMET CELLS SLIGHT; OVALOCYTES SLIGHT; PLATELET COMMENT INCREASED; POIKILOCYTOSIS 1+
--- NOTE | 2020-01-13 19:06 | ER Document Report ---
ED Respiratory Problem - General Chief Complaint: Shortness Of Breath Stated Complaint: SHORT OF BREATH,COUGH Time Seen by Provider: 01/13/20 13:25 Mode of Arrival: Ambulatory TRAVEL OUTSIDE OF THE [place] IN LAST 30 DAYS: No - HPI Onset: Last week Duration: Better Quality of pain: No pain Cough: Nonproductive Sputum amount: None Notes: Patient is a 59-year-old male who presents with cough. States that symptoms began 2 weeks ago. He states he was riding a scooter outside and then came into the air conditioned room after being caught in the rain. States that the cough is dry and nonproductive. Patient feels worsening shortness of breath when he lays down flat. He denies any significant leg swelling. No fevers. He was concerned that he might have Covid and he wanted to be evaluated. Patient does not have any chest pain. He thinks his cough and shortness of breath is actually slightly improving. Denies being in contact with anyone who has positive Covid. - Related Data Allergies/Adverse Reactions: Penicillins Allergy (Verified 01/13/20 13:29) HIVES, RASH, FEELS LIKE ON FIRE Past Medical History - General Information source: Patient - Social History Smoking Status: Current Some Day Smoker Frequency of alcohol use: Social Drug Abuse: Marijuana Family History: Reviewed & Not Pertinent - Past Medical History Cardiac Medical History: Denies: Hx Coronary Artery Disease, Hx Heart Attack, Hx Hypertension Pulmonary Medical History: Denies: Hx Asthma, Hx Bronchitis, Hx COPD, Hx Pneumonia, Hx Tuberculosis Neurological Medical History: Denies: Hx Cerebrovascular Accident, Hx Seizures Endocrine Medical History: Denies: Hx Diabetes Mellitus Type 1, Hx Diabetes Mellitus Type 2 Renal/ Medical History: Denies: Hx Peritoneal Dialysis GI Medical History: Denies: Hx Hepatitis, Hx Hiatal Hernia, Hx Ulcer Musculoskeletal Medical History: Reports Hx Arthritis, Reports Hx Musculoskeletal Trauma Traumatic Medical History: Reports: Hx Fractures - C-spinew FX's Infectious Medical History: Denies: Hx Hepatitis Past Surgical History: Reports: Hx Appendectomy, Hx Orthopedic Surgery - NECK SURGERY, RIGHT FOOT SURGERY. Denies: Hx Open Heart Surgery, Hx Pacemaker - Immunizations Hx Diphtheria, Pertussis, Tetanus Vaccination: Yes Review of Systems - Review of Systems Notes: CONSTITUTIONAL: No fever. Positive for weight loss and decreased appetite. SKIN: No rash. HENT: No congestion, ear pain, or sore throat. EYES: No recent vision problems or eye pain. ENDOCRINE: No polyuria or polydipsia. CARDIOVASCULAR: No chest pain or edema. RESPIRATORY: Positive for cough and shortness of breath. GASTROINTESTINAL: No abdominal pain, nausea, vomiting, bloody stools or diarrhea. GENITOURINARY: No dysuria. MUSCULOSKELETAL: No joint pain or swelling. LYMPHATIC: No swollen glands. NEUROLOGIC: No seizures. No headache, focal weakness or sensory changes. HEMATOLOGIC: No unusual bruising or bleeding. PSYCHIATRIC: No depression or anxiety. Physical Exam - Vital signs Vitals: Temp Pulse Resp BP Pulse Ox 98.1 F 92 16 119/85 99 01/13/20 13:08 01/13/20 13:08 01/13/20 13:08 01/13/20 13:08 01/13/20 13:08 Interpretation: Normal - Notes Notes: VITAL SIGNS: Within normal limits. GENERAL: No acute distress, non-toxic appearance. HEAD: Normal with no signs of head trauma. EYES: Conjunctiva normal, no discharge. EARS: Hearing grossly intact. NOSE: Normal. NECK: Normal range of motion, no tenderness, supple, no lymphadenopathy, No adenopathy, no JVD. CHEST: Mild coarse lung sounds. CARDIAC: Regular rate and rhythm. S1 and S2, without murmurs, gallops, or rubs. VASCULAR: Minimal lower extremity edema bilaterally. ABDOMEN: Normal and soft with no tenderness, no masses or pulsatile masses. GENITOURINARY: Normal, No tenderness LYMPATHTIC: No lymphadenopathy noted. MUSCULOSKELETAL: Good range of motion of all major joints. Extremities without clubbing, cyanosis or edema. NEUROLOGICAL: Alert and oriented x 3. No focal sensory or strength deficits. Speech normal. Follows commands appropriately. PSYCHIATRIC: Normal Affect, judgement and mood. SKIN: Normal appearance with no rashes or lesions. - General General appearance: Appears well Course - Re-evaluation Re-evalutation: 01/13/20 19:44 Patient has an elevated BNP around 5000. His EKG also shows signs of LVH. X- ray has bilateral pleural effusions. He is complaining of orthopnea and a dry cough. I am concerned for heart failure in this patient. He does not have a PCP. Does not take any medications. He has never had a cardiac work-up. I do not believe he would be safe to go home without any adequate follow-up. Patient was ambulated. His oxygen remained stable however his heart rate increased to the mid 120s. Patient was given Lasix. I did discuss with the hospitalist who will admit the patient. - Vital Signs Vital signs: Temp Pulse Resp BP Pulse Ox 98.1 F 92 16 119/85 99 01/13/20 13:08 01/13/20 13:08 01/13/20 13:08 01/13/20 13:08 01/13/20 13:08 - Laboratory Result Diagrams: 01/13/20 15:49 01/13/20 15:49 Laboratory results interpreted by me: 01/13/20 01/13/20 01/13/20 15:49 15:49 15:49 RBC 4.19 L Hgb 12.1 L Hct 37.3 L RDW 16.4 H Chloride 108 H Creatinine 1.47 H Est GFR (MDRD) Non-Af 49 L Glucose 113 H NT-Pro-B Natriuret Pep 5190 H - Diagnostic Test Radiology reviewed: Image reviewed, Reports reviewed - EKG Interpretation by Me EKG shows normal: Sinus rhythm Rate: Normal Voltage: Consistent with LVH When compared to previous EKG there are: No significant change Additional EKG results interpreted by me: 01/13/20 19:08 EKG interpreted by me. Sinus rhythm at a rate of 91. QTc 498. Left ventricular hypertrophy. No acute ST changes. Discharge - Discharge Clinical Impression: Orthopnea, Elevated brain natriuretic peptide (BNP) level, Shortness of breath Disposition: ADMITTED INPATIENT Admitting Provider: Sunita (Hospitalist) Unit Admitted: Telemetry
[2020-01-13] MEDS ORDERED: FUROSEMIDE INJ/PF 20 MG/2 ML SDV IV ONE ×2 (19:34→23:45)
--- NOTE | 2020-01-13 19:53 | EKG REPORT ---
SEVERITY:- ABNORMAL ECG - SINUS RHYTHM LEFT VENTRICULAR HYPERTROPHY BORDERLINE PROLONGED QT INTERVAL APCs : Confirmed by: Susy Estrada 13-Jan-2020 19:52:10
[2020-01-13] MEDS ORDERED: MAG HYDROX/AL HYDROX/SIMETH SUSP 30 ML UDCUP PO PRN (20:00)
[2020-01-13] MEDS ORDERED: ONDANSETRON HCL INJ/PF 4 MG/2 ML SDV IV PRN (20:00)
[2020-01-13] MEDS ORDERED: ACETAMINOPHEN 325 MG TABLET PO PRN (20:00)
--- NOTE | 2020-01-13 20:28 | PDOC H&P ---
History of Present Illness Admission Date/PCP: 01/13/20 20:03 Patient complains of: sob and cough History of Present Illness: CHRISSIE HORN is a 59 year old male with no known active medical issues besides his presentation and who does not currently follow with any physician for the past few years. He presents today for evaluation of shortness of breath and co ugh. He states that he has been having shortness of breath for about 3 weeks now. Describes it as being more like orthopnea which is worse when he lays down at nighttime. Over the past week, he felt he had come down with a cold because he used to start coughing at nighttime whenever he laid down. He denied any rhinorrhea, nasal congestion, fever or chills at that time. He also has mild lower extremity edema which he has noted. His symptoms a week ago were associated with some pleuritic chest pain. He denies any sick contacts. He denies PND. He does have family history of heart disease in his father, mother and his brother. He came to the ER to be evaluated for possible COVID-19. W ork-up in ER notable for elevated BNP, small bilateral pleural effusions. Ambulated in the ER and his heart rate shot up to the 120s. Past Medical History Cardiac Medical History: Denies: Coronary Artery Disease, Myocardial Infarction, Hypertension Pulmonary Medical History: Denies: Asthma, Bronchitis, Chronic Obstructive Pulmonary Disease (COPD), Pneumonia, Tuberculosis Neurological Medical History: Denies: Seizures Endocrine Medical History: Denies: Diabetes Mellitus Type 1, Diabetes Mellitus Type 2 GI Medical History: Denies: Hepatitis, Hiatal Hernia Musculoskeltal Medical History: Reports: Arthritis Hematology: Denies: Anemia, Sickle Cell Disease Past Surgical History Past Surgical History: Reports: Appendectomy, Orthopedic Surgery - NECK SURGERY, RIGHT FOOT SURGERY Denies: Pacemaker Social History Smoking Status: Current Some Day Smoker Frequency of Alcohol Use: Social Hx Recreational Drug Use: No Hx Prescription Drug Abuse: No - Advance Directive Resuscitation Status: Full Code Family History Family History: CAD - In his mother and brother, Other - Congestive heart failure in father Parental Family History Reviewed: Yes Children Family History Reviewed: NA Sibling(s) Family History Reviewed.: Yes Medication/Allergy Home Medications: Oxycodone HCl/Acetaminophen [Percocet 5-325 mg Tablet] 1 - 2 tab PO ASDIR PRN #60 tablet 01/07/16 Prednisone [Deltasone 10 mg Tablet] 10 mg PO ASDIR PRN #15 tablet 05/25/16 Cephalexin Monohydrate [Keflex 500 mg Capsule] 500 mg PO Q8 5 Days capsule 10/21/19 Hydrocodone/Acetaminophen [[place] 5-325 mg Tablet] 1 tab PO Q4H PRN #15 tablet 12/09/19 Allergies/Adverse Reactions: Penicillins Allergy (Verified 01/13/20 13:29) HIVES, RASH, FEELS LIKE ON FIRE Review of Systems Constitutional: ABSENT: fatigue, fever(s), night sweats Eyes: ABSENT: visual disturbances Ears: ABSENT: hearing changes Nose, Mouth, and Throat: ABSENT: headache(s) Cardiovascular: PRESENT: edema, orthropnea. ABSENT: palpitations Respiratory: PRESENT: cough, dyspnea. ABSENT: hemoptysis, sputum Gastrointestinal: ABSENT: abdominal pain, diarrhea, nausea, vomiting Integumentary: ABSENT: diaphoresis Neurological: ABSENT: dizziness Endocrine: ABSENT: polyuria Allergic/Immunologic: PRESENT: seasonal rhinorrhea Physical Exam Vital Signs: Temp Pulse Resp BP Pulse Ox 98.1 F 92 16 119/85 99 01/13/20 13:08 01/13/20 13:08 01/13/20 13:08 01/13/20 13:08 01/13/20 13:08 Intake & Output 01/12/20 01/13/20 01/14/20 06:59 06:59 06:59 Weight 79.4 kg General appearance: PRESENT: no acute distress, cooperative Head exam: PRESENT: normocephalic Eye exam: PRESENT: EOMI Neck exam: ABSENT: JVD Respiratory exam: PRESENT: symmetrical, unlabored. ABSENT: accessory muscle use, crackles, rhonchi, stridor, tachypnea, wheezes Cardiovascular exam: PRESENT: RRR - However some occasional ectopic beats, +S1, +S2. ABSENT: tachycardia GI/Abdominal exam: PRESENT: soft. ABSENT: rebound, rigid, tenderness Extremities exam: PRESENT: pedal edema, +1 edema - Bilateral lower extremities. ABSENT: calf tenderness Neurological exam: PRESENT: alert, awake, oriented to person, oriented to place, oriented to time, oriented to situation Psychiatric exam: ABSENT: agitated, anxious Focused psych exam: ABSENT: pressured speech Skin exam: ABSENT: jaundice Results Laboratory Results: 01/13/20 15:49 01/13/20 15:49 01/13/20 01/13/20 15:49 15:49 WBC 5.4 RBC 4.19 L Hgb 12.1 L Hct 37.3 L MCV 89 MCH 28.9 MCHC 32.5 RDW 16.4 H Plt Count 221 Seg Neutrophils % Not Reportable Sodium 138.2 Potassium 4.5 Chloride 108 H Carbon Dioxide 23 Anion Gap 7 BUN 20 Creatinine 1.47 H Est GFR ( Amer) > 60 Glucose 113 H Calcium 9.5 Total Bilirubin 0.7 AST 32 Alkaline Phosphatase 105 Total Protein 6.9 Albumin 3.8 01/13/20 01/13/20 01/13/20 15:49 15:49 15:49 Creatine Kinase 98 Troponin I 0.028 NT-Pro-B Natriuret Pep 5190 H 01/13/20 18:21 Creatine Kinase Troponin I 0.031 NT-Pro-B Natriuret Pep Impressions: Chest X-Ray 01/13/20 13:28 IMPRESSION: Small bilateral pleural effusions. Mild cardiomegaly. Assessment and Plan - Diagnosis (1) Acute CHF (congestive heart failure) Qualifiers: Heart failure type: unspecified Qualified Code(s): I50.9 - Heart failure, unspecified Is this a current diagnosis for this admission?: Yes Plan: BNP of 5000+ chest x-ray showing mild cardiomegaly and small bilateral pleural effusions +orthopnea Suspicion for new onset CHF especially given significant family history of heart disease and congestive heart failure Start patient on Lasix 20 mg IV twice daily Strict I's and O's, daily weights, telemetry 1500 cc fluid restriction Check echocardiogram Check TSH He will need to be set up with a PCP and director automotive prior to discharge Influenza is negative. He has also been tested for [id number] is pending (2) Elevated serum creatinine Is this a current diagnosis for this admission?: Yes Plan: Creatinine elevated at 1.4. Unknown if this is chronic versus acute kidney injury. Will check intact PTH. Monitor BMP. (3) Elevated troponin Is this a current diagnosis for this admission?: Yes Plan: Minimal flat troponin elevation without any current chest pain. No suspicion of ACS at this time. Has strong family history of CAD. EKG not showing any ischemic changes but shows LVH Echo will be obtained May need ischemic evaluation sometime in the future especially if his EF is reduced on echo. Check lipid panel and hemoglobin A1c - Time Time Spent with patient: 35 or more minutes Anticipated Discharge Disposition: Home, Self Care Anticipated Discharge Timeframe: within 48 hours
[2020-01-13] MEDS ORDERED: NICOTINE 14 MG/24 HR PATCH.TD24 TD PRN (20:29)
[2020-01-13] MEDS ORDERED: ENOXAPARIN SODIUM INJ 40 MG/0.4 ML DISP.SYRIN SUBCUT SCH (21:00)
[2020-01-13] MEDS ORDERED: ENOXAPARIN SODIUM INJ 40 MG/0.4 ML DISP.SYRIN SUBCUT ONE (23:45)
[2020-01-14 06:47] LABS: ANION GAP 8 (5-19); BLOOD UREA NITROGEN 23 mg/dL (7-20); CALCIUM 9.1 mg/dL (8.4-10.2); CARBON DIOXIDE 23 mmol/L (22-30); CHLORIDE 107 mmol/L (98-107); CHOLESTEROL 147.48 mg/dL (0-200); GLUCOSE 148 mg/dL (75-110); POTASSIUM 3.9 mmol/L (3.6-5.0); TRIGLYCERIDES 59 mg/dL (<150)
[2020-01-14 06:57] LABS: DIRECT LDL 36 mg/dL (<100)
[2020-01-14] MEDS: FUROSEMIDE INJ/PF 20 MG/2 ML SDV IV SCH ×2 (10:52→17:37)
[2020-01-14] MEDS ORDERED: HYDRALAZINE HCL INJ/PF 20 MG/1 ML SDV IV PRN (17:53)
[2020-01-14] MEDS ORDERED: METOPROLOL TARTRATE PF/INJ 5 MG/5 ML SDV IV PRN (17:53)
[2020-01-14] MEDS: LISINOPRIL 5 MG TABLET PO SCH (18:03)
[2020-01-14] MEDS: ASPIRIN 81 MG TABLET, CHEWABLE PO SCH (18:04)
--- NOTE | 2020-01-14 18:51 | PDOC PROGRESS REPORT ---
Subjective Progress Note for:: 01/14/20 Subjective:: CHRISSIE HORN is a 59 year old male with no known active medical issues besides his presentation and who does not currently follow with any physician for the past few years. He presents today for evaluation of shortness of breath and cough. He states that he has been having shortness of breath for about 3 weeks now. Describes it as being more like orthopnea which is worse when he lays down at nighttime. Over the past week, he felt he had come down with a cold because he used to start coughing at nighttime whenever he laid down. He denied any rhinorrhea, nasal congestion, fever or chills at that time. He also has mild lower extremity edema which he has noted. His symptoms a week ago were associated with some pleuritic chest pain. He denies any sick contacts. He denies PND. He does have family history of heart disease in his father, mother and his brother. He came to the ER to be evaluated for possible COVID-19. Work-up in ER notable for elevated BNP, small bilateral pleural effusions. Ambulated in the ER and his heart rate shot up to the 120s. 01/14/2020. No acute events overnight. Patient comfortably sitting up by distress, denies any fever, chills, nausea, vomiting, diarrhea, constipation or any urinary symptoms. Still complaining of PND and orthopnea. In ED patient was concern for COVID-19 infection and he was tested for Covid however based on my conversation patient does not have any risk of Covid 19 infection and does not have any symptoms. Reason For Visit: HEART FAILURE Physical Exam Vital Signs: Temp Pulse Resp BP Pulse Ox 97.7 F 97 20 122/88 H 100 01/14/20 17:33 01/14/20 17:33 01/14/20 17:33 01/14/20 17:33 01/14/20 17:33 Intake & Output 01/13/20 01/14/20 01/15/20 06:59 06:59 06:59 Intake Total 220 260 Output Total 950 Balance -730 260 Weight 79.4 kg 79.4 kg General appearance: PRESENT: no acute distress, well-developed, well-nourished Head exam: PRESENT: atraumatic, normocephalic Respiratory exam: PRESENT: crackles. ABSENT: rales, rhonchi, wheezes Cardiovascular exam: PRESENT: RRR. ABSENT: diastolic murmur, rubs, systolic murmur GI/Abdominal exam: PRESENT: normal bowel sounds, soft. ABSENT: distended, guarding, mass, organolmegaly, rebound, tenderness Extremities exam: PRESENT: full ROM. ABSENT: calf tenderness, clubbing, pedal edema Neurological exam: PRESENT: alert, awake, oriented to person, oriented to place, oriented to time, oriented to situation, CN II-XII grossly intact. ABSENT: motor sensory deficit Results Laboratory Results: 01/13/20 15:49 01/14/20 06:10 01/14/20 01/14/20 01/14/20 06:10 06:10 06:10 Sodium 138.3 Potassium 3.9 Chloride 107 Carbon Dioxide 23 Anion Gap 8 BUN 23 H Creatinine 1.42 H Est GFR ( Amer) > 60 Glucose 148 H Calcium 9.1 Magnesium 2.0 Triglycerides 59 Cholesterol 147.48 LDL Cholesterol Direct 36 VLDL Cholesterol 12.0 HDL Cholesterol 79 TSH 1.58 PTH Intact 60.2 01/13/20 01/13/20 01/13/20 15:49 15:49 15:49 Creatine Kinase 98 Troponin I 0.028 NT-Pro-B Natriuret Pep 5190 H 01/13/20 18:21 Creatine Kinase Troponin I 0.031 NT-Pro-B Natriuret Pep Impressions: Chest X-Ray 01/13/20 13:28 IMPRESSION: Small bilateral pleural effusions. Mild cardiomegaly. Assessment and Plan - Diagnosis (1) Acute CHF (congestive heart failure) Qualifiers: Heart failure type: systolic Qualified Code(s): I50.21 - Acute systolic (congestive) heart failure Is this a current diagnosis for this admission?: Yes Plan: Presented with with BNP of 5000+ chest x-ray showing mild cardiomegaly and small bilateral pleural effusions +orthopnea Suspicion for new onset CHF especially given significant family history of heart disease and congestive heart failure Denies any personal history of CAD. Denies any recreational drug abuse. TSH WNL. Continue with strict in and out, daily weights, telemetry, IV Lasix, MADELEINE to be uptitrated based on kidney function and fluid restriction. Pending 2D echo and cardiology consult. (2) Elevated troponin Is this a current diagnosis for this admission?: Yes Plan: Denies any anginal symptoms. Elevated troponins, likely due to demand mismatch. No suspicion of ACS at this time. Has strong family history of CAD. Lipid panel WNL. TSH WNL. Hemoglobin A1c 5.3%. EKG not showing any ischemic changes but shows LVH Continue antiplatelets, statins, MADELEINE based on renal function. Trend troponins. Cardiology consulted. Recommendation pending. 2D echo ordered. (3) COVID-19 Is this a current diagnosis for this admission?: Yes Plan: In ED patient was complaining of shortness of breath and was concerned for COVID-19 infection. Patient was tested for COVID-19 and currently in Covid floor waiting for his physical. Based on clinical presentation and my conversation with patient I doubt if patient has COVID-19 infection. Patient is on room air, afebrile, WBC WNL, platelets WNL, denies any fever, chills, nausea, loss of smell, loss of taste, abdominal pain or diarrhea. We will continue contact precaution and wait for COVID-19 result. If comes positive patient can be started on treatment. (4) Acute kidney injury superimposed on CKD Is this a current diagnosis for this admission?: Yes Plan: Baseline creatinine 1.3. Creatinine trending down. Monitor electrolytes and volume status, replace electrolytes as needed. Avoid nephrotoxic meds. If no improvement consult nephrology. - Time Time Spent with patient: 25-34 minutes Medications reviewed and adjusted accordingly: Yes Anticipated Discharge Disposition: Home, Self Care Anticipated Discharge Timeframe: within 48 hours
--- NOTE | 2020-01-14 19:49 | EKG REPORT ---
SEVERITY:- ABNORMAL ECG - SINUS RHYTHM PROBABLE LEFT ATRIAL ABNORMALITY LEFT VENTRICULAR HYPERTROPHY PROLONGED QT INTERVAL : Confirmed by: Susy Estrada 14-Jan-2020 19:48:32
--- NOTE | 2020-01-14 20:41 | XCELERA REPORT ---
[address] [address] Transthoracic Echocardiogram Report Name: CHRISSIE HORN Age: 59 yrs Gender: Male : 1960 Patient Status: Inpatient Patient Location: [address] [place] [address] Study Date: 01/14/2020 11:24 AM History: CHF Height: 71 in Weight: 175 lb BSA: 2.0 m2 Procedure: A complete two-dimensional transthoracic echocardiogram was performed (2D, M-mode, spectral and color flow Doppler). The study was technically adequate with some images being suboptimal in quality. The study was done portable in the ER. Reason For Study: chf Previous Evaluation: No previous studies were available. History: CHF. Ordering Physician: HAKEEM DEGROOT Performed By: Dickson Solomon Interpretation Summary Left ventricular systolic function is severely reduced. The Ejection Fraction estimate is 20-25% The right ventricular systolic function is moderate to severely reduced. There is a moderate to severe amount of mitral regurgitation There is a mild to moderate amount of aortic regurgitation There is a moderate amount of tricuspid regurgitation There is moderate pulmonary hypertension by echo There is no pericardial effusion. MMode/2D Measurements & Calculations RVDd: 3.7 cm LVIDd: 7.3 cm FS: 7.8 % Ao root diam: IVSd: 0.81 cm LVIDs: 6.7 cm EDV(Teich): 2.9 cm LVPWd: 0.84 cm 280.7 ml Ao root area: ESV(Teich): 6.5 cm2 233.7 ml LA dimension: EF(Teich): 16.7 % 4.4 cm LVLd ap4: 9.7 cm SV(MOD-sp4): 54.0 ml EDV(MOD-sp4): 238.0 ml LVLs ap4: 8.8 cm ESV(MOD-sp4): 184.0 ml EF(MOD-sp4): 22.7 % Doppler Measurements & Calculations MV E max flori: MV P1/2t max flori: Ao V2 max: AI max flori: 111.8 cm/sec 112.4 cm/sec 100.2 cm/sec 383.1 cm/sec MV A max flori: MV P1/2t: 46.9 msec Ao max PG: AI max P.2 cm/sec MVA(P1/2t): 4.7 cm2 4.0 mmHg 58.7 mmHg MV E/A: 2.3 MV dec slope: AI dec slope: 121.6 cm/sec2 702.5 cm/sec2 AI P1/2t: MV dec time: 922.8 msec 0.15 sec LV V1 max PG: PA V2 max: PI end-d flori: TR max flori: 1.6 mmHg 47.4 cm/sec 215.8 cm/sec 346.1 cm/sec LV V1 max: PA max P.90 mmHg TR max P.2 cm/sec 47.9 mmHg LV dP/dt: 1010 mmHg/s AV P1/2t-pr_phl: MV P1/2t-pr_phl: 922.8 msec 46.9 msec Left Ventricle The left ventricle is moderately to severly dilated. There is mild concentric left ventricular hypertrophy. Left ventricular systolic function is severely reduced. The Ejection Fraction estimate is 20-25%. Doppler measurements suggest reversible restrictive left ventricular relaxation, which is associated with grade III/IV or moderate diastolic dysfunction. There is severe global hypokinesis of the left ventricle. Right Ventricle The right ventricle is moderately dilated. The right ventricular systolic function is moderate to severely reduced. Atria The right atrium is mildly dilated. The left atrium is moderately dilated. The interatrial septum is intact with no evidence for an atrial septal defect. There is no Doppler evidence for an interatrial shunt. The interatrial septum bows toward right atrium consistent with elevated left atrial pressure. Mitral Valve The mitral valve leaflets are sclerotic, but show no functional abnormalities. Calcified mitral apparatus. There is no evidence of mitral valve prolapse. There is no mitral valve stenosis. There is a moderate to severe amount of mitral regurgitation. Aortic Valve The aortic valve is trileaflet. The aortic valve is sclerotic, but shows no functional abnormality. There is no aortic valvular vegetation. There is no aortic valve stenosis. There is a mild to moderate amount of aortic regurgitation. Tricuspid Valve The tricuspid valve is normal in structure and function. There is no tricuspid valve prolapse. There is no tricuspid stenosis. There is a moderate amount of tricuspid regurgitation. Right ventricular systolic pressure is estimated to be elevated at 50-60mmHg. There is moderate pulmonary hypertension by echo. Pulmonic Valve The pulmonic valve is not well seen, but is grossly normal. There is no vegetation on the pulmonic valve. There is no pulmonic valvular stenosis. There is a mild to moderate amount of pulmonic regurgitation. Great Vessels The aortic root is normal size. The inferior vena cava appeared normal and decreased < 50% with respiration (RAP 10-15 mmHg). Effusions There is no pericardial effusion. : HAKEEM DEGROOT Anil
[2020-01-14] MEDS: ATORVASTATIN CALCIUM 40 MG TABLET PO SCH (21:00)
[2020-01-14] MEDS ORDERED: ENOXAPARIN SODIUM INJ 40 MG/0.4 ML DISP.SYRIN SUBCUT SCH (21:00)
[2020-01-15 05:46] LABS: ANION GAP 7 (5-19); BLOOD UREA NITROGEN 26 mg/dL (7-20); CALCIUM 9.2 mg/dL (8.4-10.2); CARBON DIOXIDE 25 mmol/L (22-30); CHLORIDE 105 mmol/L (98-107); GLUCOSE 127 mg/dL (75-110); POTASSIUM 3.8 mmol/L (3.6-5.0)
[2020-01-15] MEDS ORDERED: METOPROLOL TARTRATE 25 MG TABLET PO SCH (08:30)
[2020-01-15] MEDS: ASPIRIN 81 MG TABLET, CHEWABLE PO SCH (09:13)
[2020-01-15] MEDS: LISINOPRIL 5 MG TABLET PO SCH (09:16)
[2020-01-15] MEDS: FUROSEMIDE INJ/PF 20 MG/2 ML SDV IV SCH ×2 (09:16→17:49)
--- NOTE | 2020-01-15 16:41 | PDOC PROGRESS REPORT ---
Subjective Progress Note for:: 01/15/20 Subjective:: No adverse events overnight. No complaints. Is able to rest comfortably on room air. He said he still feels more comfortable with the head of the bed elevated that he does when he lays flat, but he said his chest does not feel congested anymore. He said he did not have any health problems before all of this. Reason For Visit: HEART FAILURE Physical Exam Vital Signs: Temp Pulse Resp BP Pulse Ox 97.6 F 90 16 95/76 L 96 01/15/20 12:08 01/15/20 14:00 01/15/20 12:08 01/15/20 12:08 01/15/20 12:08 Intake & Output 01/14/20 01/15/20 01/16/20 06:59 06:59 06:59 Intake Total 220 260 582 Output Total 950 Balance -730 260 582 Weight 79.4 kg 77.2 kg General appearance: PRESENT: no acute distress, well-developed, well-nourished Head exam: PRESENT: atraumatic, normocephalic Respiratory exam: PRESENT: Diminished but clear bilaterally. ABSENT: rales, rhonchi, wheezes, crackles Cardiovascular exam: PRESENT: RRR. ABSENT: diastolic murmur, rubs, systolic murmur GI/Abdominal exam: PRESENT: normal bowel sounds, soft. ABSENT: distended, guarding, mass, organolmegaly, rebound, tenderness Extremities exam: PRESENT: full ROM. ABSENT: calf tenderness, clubbing, pedal edema Neurological exam: PRESENT: alert, awake, oriented to person, oriented to place, oriented to time, oriented to situation, CN II-XII grossly intact. ABSENT: motor sensory deficit Results Laboratory Results: 01/13/20 15:49 01/15/20 04:55 01/15/20 04:55 Sodium 137.3 Potassium 3.8 Chloride 105 Carbon Dioxide 25 Anion Gap 7 BUN 26 H Creatinine 1.47 H Est GFR ( Amer) > 60 Glucose 127 H Calcium 9.2 Magnesium 2.0 01/13/20 01/13/20 01/13/20 15:49 15:49 15:49 Creatine Kinase 98 Troponin I 0.028 NT-Pro-B Natriuret Pep 5190 H 01/13/20 01/14/20 18:21 18:19 Creatine Kinase Troponin I 0.031 0.033 NT-Pro-B Natriuret Pep Impressions: Chest X-Ray 01/13/20 13:28 IMPRESSION: Small bilateral pleural effusions. Mild cardiomegaly. Assessment and Plan - Diagnosis (1) Acute CHF (congestive heart failure) Qualifiers: Heart failure type: systolic Qualified Code(s): I50.21 - Acute systolic (co ngestive) heart failure Is this a current diagnosis for this admission?: Yes (2) Acute kidney injury superimposed on CKD Is this a current diagnosis for this admission?: Yes (3) Orthopnea Is this a current diagnosis for this admission?: Yes (4) Shortness of breath Is this a current diagnosis for this admission?: Yes - Plan Summary Summary: He is on room air now and is not short of breath. Coronavirus testing was negative. He said he still feels more comfortable sitting upright or sleeping with the head of the bed elevated. We are keeping an eye on his creatinine, because it is a little higher than it was several months ago, but it still may be in his usual range. We will continue diuresis for the time being. I have started him on Toprol XL because he was apparently having some frequent runs of tachycardia, up to 14 beats, and the Toprol seems to have address this. He is going to be fitted for a LifeVest. Dr. Landeros recommended starting Entresto. He is probably going to get an outpatient cardiac catheterization. Once his LifeVest is fitted, he can probably be discharged home. - Time Time Spent with patient: 15-24 minutes Anticipated Discharge Disposition: Home, Self Care Anticipated Discharge Timeframe: within 72 hours
--- NOTE | 2020-01-15 18:31 | PDOC CONSULTATION ---
Consultation Consult Date: 01/15/20 Attending physician:: MIC REYNOSO Provider Consulted: SANDRA MARTIN Consult reason:: Dyspnea, congestive heart failure History of Present Illness Admission Date/PCP: 01/13/20 20:03 Patient complains of: Dyspnea History of Present Illness: CHRISSIE HORN is a 59 year old male Who presented to the hospital with dyspnea, orthopnea as well as PND. Symptoms are consistent with new onset acute congestive heart failure. Echocardiogram was subsequently performed which showed profound left ventricular dysfunction with ejection fraction estimated at approximately 20 to 25%. This is a new finding for this patient. Patient claims that he had no prior cardiac illnesses whatsoever. He smokes a pack of cigarettes and is done that most of his adult life. No drinking habits. No drug use is reported. No regular medical checkups. No familial illnesses are reported Review of systems is positive for PND, orthopnea, dyspnea. Negative for hemoptysis negative for chest pain. Full 11 review of systems was asked. Pertinent positives noted here and in the HPI all other systems are negative. Past Medical History Cardiac Medical History: Denies: Coronary Artery Disease, Myocardial Infarction, Hypertension Pulmonary Medical History: Denies: Asthma, Bronchitis, Chronic Obstructive Pulmonary Disease (COPD), Pneumonia, Tuberculosis Neurological Medical History: Denies: Seizures Endocrine Medical History: Denies: Diabetes Mellitus Type 1, Diabetes Mellitus Type 2 GI Medical History: Denies: Hepatitis, Hiatal Hernia Musculoskeltal Medical History: Reports: Arthritis Psychiatric Medical History: Denies: Depression Hematology: Denies: Anemia, Sickle Cell Disease Past Surgical History Past Surgical History: Reports: Appendectomy, Orthopedic Surgery - NECK SURGERY, RIGHT FOOT SURGERY Denies: Pacemaker Social History Smoking Status: Smoker,Current Status Unk Cigarettes Packs Per Day: 0 Electronic Cigarette use?: No Last Time Smoked: 2 days ago Frequency of Alcohol Use: Occasional Hx Recreational Drug Use: No Drugs: None Hx Prescription Drug Abuse: No - Advance Directive Resuscitation Status: Full Code Family History Family History: CAD - In his mother and brother, Other - Congestive heart failure in father Parental Family History Reviewed: Yes - No familial illnesses reported Children Family History Reviewed: NA Sibling(s) Family History Reviewed.: NA Medication/Allergy Home Medications: No Home Medications 01/13/20 Allergies/Adverse Reactions: Penicillins Allergy (Verified 01/13/20 13:29) HIVES, RASH, FEELS LIKE ON FIRE Review of Systems Constitutional: PRESENT: as per HPI Eyes: PRESENT: as per HPI Ears: PRESENT: as per HPI Cardiovascular: PRESENT: dyspnea on exertion, orthropnea Respiratory: PRESENT: cough Genitourinary: ABSENT: as per HPI, difficulty urinating, dysuria, hematuria, nocturia, other Integumentary: ABSENT: as per HPI, diaphoresis, erythema, lesions, pruritus, junito h, wounds, other Endocrine: ABSENT: as per HPI, cold intolerance, flushing, heat intolerance, menstrual abnormalities, polydipsia, polyphagia, polyuria, other Physical Exam Vital Signs: Temp Pulse Resp BP Pulse Ox 97.6 F 90 16 95/76 L 96 01/15/20 12:08 01/15/20 14:00 01/15/20 12:08 01/15/20 12:08 01/15/20 12:08 Intake & Output 01/14/20 01/15/20 01/16/20 06:59 06:59 06:59 Intake Total 220 260 582 Output Total 950 Balance -730 260 582 Weight 79.4 kg 77.2 kg General appearance: PRESENT: no acute distress, cooperative, well-developed, w ell-nourished Head exam: PRESENT: atraumatic, normocephalic Eye exam: PRESENT: conjunctiva pink, EOMI Mouth exam: PRESENT: moist Neck exam: PRESENT: JVD Respiratory exam: PRESENT: crackles, decreased breath sounds, symmetrical, unlabored Cardiovascular exam: PRESENT: gallop, +S1, +S2, systolic murmur, tachycardia Pulses: PRESENT: normal radial pulses GI/Abdominal exam: PRESENT: soft Rectal exam: PRESENT: deferred Musculoskeletal exam: PRESENT: normal inspection Neurological exam: PRESENT: alert, awake, oriented to person, oriented to place, oriented to time, oriented to situation Psychiatric exam: PRESENT: appropriate affect Skin exam: PRESENT: dry, intact Results Laboratory Results: 01/13/20 15:49 01/15/20 04:55 01/15/20 04:55 Sodium 137.3 Potassium 3.8 Chloride 105 Carbon Dioxide 25 Anion Gap 7 BUN 26 H Creatinine 1.47 H Est GFR ( Amer) > 60 Glucose 127 H Calcium 9.2 Magnesium 2.0 01/13/20 01/13/20 01/13/20 15:49 15:49 15:49 Creatine Kinase 98 Troponin I 0.028 NT-Pro-B Natriuret Pep 5190 H 01/13/20 01/14/20 18:21 18:19 Creatine Kinase Troponin I 0.031 0.033 NT-Pro-B Natriuret Pep EKG Comments: Twelve-lead EKG shows sinus rhythm Twelve-lead EKG shows sinus rhythm at 91 bpm, left ventricular hypertrophy, borderline prolonged QT interval, repolarization abnormality Transthoracic echocardiogram 01/14/2020. Left ventricular ejection fraction is severely diminished and is estimated at 20 to 25% There is moderate to severe mitral regurgitation There is mild to moderate aortic regurgitation There is moderate tricuspid regurgitation There is moderate pulmonary hypertension by echocardiogram there is no pericardial effusion Telemetry overnight shows sinus rhythm, sinus tachycardia, nonsustained ventricular tachycardia Chest x-ray 01/13/2020 Small bilateral pleural effusions mild cardiomegaly Cardiac troponin I 0.028, 0.031, 0.033 BNP 5190 Creatinine is 1.47Twelve-lead EKG shows sinus rhythm at 91 bpm, left ventricular hypertrophy, borderline prolonged QT interval, repolarization abnormality Transthoracic echocardiogram 01/14/2020. Left ventricular ejection fraction is severely diminished and is estimated at 20 to 25% There is moderate to severe mitral regurgitation There is mild to moderate aortic regurgitation There is moderate tricuspid regurgitation There is moderate pulmonary hypertension by echocardiogram there is no pericardial effusion Telemetry overnight shows sinus rhythm, sinus tachycardia, nonsustained ventricular tachycardia Chest x-ray 01/13/2020 Small bilateral pleural effusions mild cardiomegaly Cardiac troponin I 0.028, 0.031, 0.033 BNP 5190 Creatinine is 1.47Twelve-lead EKG shows sinus rhythm at 91 bpm, left ventricular hypertrophy, borderline prolonged QT interval, repolarization abnormality Transthoracic echocardiogram 01/14/2020. Left ventricular ejection fraction is severely diminished and is estimated at 20 to 25% There is moderate to severe mitral regurgitation There is mild to moderate aortic regurgitation There is moderate tricuspid regurgitation There is moderate pulmonary hypertension by echocardiogram there is no per icardial effusion Telemetry overnight shows sinus rhythm, sinus tachycardia, nonsustained ventricular tachycardia Chest x-ray 01/13/2020 Small bilateral pleural effusions mild cardiomegaly Cardiac troponin I 0.028, 0.031, 0.033 BNP 5190 Creatinine is 1.47Twelve-lead EKG shows sinus rhythm at 91 bpm, left ventricular hypertrophy, borderline prolonged QT interval, repolarization abnormality Transthoracic echocardiogram 01/14/2020. Left ventricular ejection fraction is severely diminished and is estimated at 20 to 25% There is moderate to severe mitral regurgitation There is mild to moderate aortic regurgitation There is moderate tricuspid regurgitation There is moderate pulmonary hypertension by echocardiogram there is no pericardial effusion Telemetry overnight shows sinus rhythm, sinus tachycardia, nonsustained ventricular tachycardia Chest x-ray 01/13/2020 Small bilateral pleural effusions mild cardiomegaly Cardiac troponin I 0.028, 0.031, 0.033 BNP 5190 Creatinine is 1.47Twelve-lead EKG shows sinus rhythm at 91 bpm, left ventricular hypertrophy, borderline prolonged QT interval, repolarization abnormality Transthoracic echocardiogram 01/14/2020. Left ventricular ejection fraction is severely diminished and is estimated at 20 to 25% There is moderate to severe mitral regurgitation There is mild to moderate aortic regurgitation There is moderate tricuspid regurgitation There is moderate pulmonary hypertension by echocardiogram there is no pericardial effusion Telemetry overnight shows sinus rhythm, sinus tachycardia, nonsustained ventricular tachycardia Chest x-ray 01/13/2020 Small bilateral pleural effusions mild cardiomegaly Cardiac troponin I 0.028, 0.031, 0.033 BNP 5190 Creatinine is 1.47Twelve-lead EKG shows sinus rhythm at 91 bpm, left ventricular hypertrophy, borderline prolonged QT interval, repolarization abnormality Transthoracic echocardiogram 01/14/2020. Left ventricular ejection fraction is severely diminished and is estimated at 20 to 25% There is moderate to severe mitral regurgitation There is mild to moderate aortic regurgitation There is moderate tricuspid regurgitation There is moderate pulmonary hypertension by echocardiogram there is no pericardial effusion Telemetry overnight shows sinus rhythm, sinus tachycardia, nonsustained ventricular tachycardia Chest x-ray 01/13/2020 Small bilateral pleural effusions mild cardiomegaly Cardiac troponin I 0.028, 0.031, 0.033 BNP 5190 Creatinine is 1.47Twelve-lead EKG shows sinus rhythm at 91 bpm, left ventricular hypertrophy, borderline prolonged QT interval, repolarization abnormality Transthoracic echocardiogram 01/14/2020. Left ventricular ejection fraction is severely diminished and is estimated at 20 to 25% There is moderate to severe mitral regurgitation There is mild to moderate aortic regurgitation There is moderate tricuspid regurgitation There is moderate pulmonary hypertension by echocardiogram there is no pericardial effusion Telemetry overnight shows sinus rhythm, sinus tachycardia, nonsustained ventricular tachycardia Chest x-ray 01/13/2020 Small bilateral pleural effusions mild cardiomegaly Cardiac troponin I 0.028, 0.031, 0.033 BNP 5190 Creatinine is 1.47Twelve-lead EKG shows sinus rhythm at 91 bpm, left ventricular hypertrophy, borderline prolonged QT interval, repolarization abnormality Transthoracic echocardiogram 01/14/2020. Left ventricular ejection fraction is severely diminished and is estimated at 20 to 25% There is moderate to severe mitral regurgitation There is mild to moderate aortic regurgitation There is moderate tricuspid regurgitation There is moderate pulmonary hypertension by echocardiogram there is no pericard ial effusion Telemetry overnight shows sinus rhythm, sinus tachycardia, nonsustained ventricular tachycardia Chest x-ray 01/13/2020 Small bilateral pleural effusions mild cardiomegaly Cardiac troponin I 0.028, 0.031, 0.033 BNP 5190 Creatinine is 1.47Twelve-lead EKG shows sinus rhythm at 91 bpm, left ventricular hypertrophy, borderline prolonged QT interval, repolarization abnormality Transthoracic echocardiogram 01/14/2020. Left ventricular ejection fraction is severely diminished and is estimated at 20 to 25% There is moderate to severe mitral regurgitation There is mild to moderate aortic regurgitation There is moderate tricuspid regurgitation There is moderate pulmonary hypertension by echocardiogram there is no pericardial effusion Telemetry overnight shows sinus rhythm, sinus tachycardia, nonsustained ventricular tachycardia Chest x-ray 01/13/2020 Small bilateral pleural effusions mild cardiomegaly Cardiac troponin I 0.028, 0.031, 0.033 BNP 5190 Creatinine is 1.47Twelve-lead EKG shows sinus rhythm at 91 bpm, left ventricular hypertrophy, borderline prolonged QT interval, repolarization abnormality Transthoracic echocardiogram 01/14/2020. Left ventricular ejection fraction is severely diminished and is estimated at 20 to 25% There is moderate to severe mitral regurgitation There is mild to moderate aortic regurgitation There is moderate tricuspid regurgitation There is moderate pulmonary hypertension by echocardiogram there is no pericardial effusion Telemetry overnight shows sinus rhythm, sinus tachycardia, nonsustained ventricular tachycardia Chest x-ray 01/13/2020 Small bilateral pleural effusions mild cardiomegaly Cardiac troponin I 0.028, 0.031, 0.033 BNP 5190 Creatinine is 1.47Twelve-lead EKG shows sinus rhythm at 91 bpm, left ventricular hypertrophy, borderline prolonged QT interval, repolarization abnormality Transthoracic echocardiogram 01/14/2020. Left ventricular ejection fraction is severely diminished and is estimated at 20 to 25% There is moderate to severe mitral regurgitation There is mild to moderate aortic regurgitation There is moderate tricuspid regurgitation There is moderate pulmonary hypertension by echocardiogram there is no pericardial effusion Telemetry overnight shows sinus rhythm, sinus tachycardia, nonsustained ventricular tachycardia Chest x-ray 01/13/2020 Small bilateral pleural effusions mild cardiomegaly Cardiac troponin I 0.028, 0.031, 0.033 BNP 5190 Creatinine is 1.47Twelve-lead EKG shows sinus rhythm at 91 bpm, left ventricular hypertrophy, borderline prolonged QT interval, repolarization abnormality Transthoracic echocardiogram 01/14/2020. Left ventricular ejection fraction is severely diminished and is estimated at 20 to 25% There is moderate to severe mitral regurgitation There is mild to moderate aortic regurgitation There is moderate tricuspid regurgitation There is moderate pulmonary hypertension by echocardiogram there is no pericardial effusion Telemetry overnight shows sinus rhythm, sinus tachycardia, nonsustained ventricular tachycardia Chest x-ray 01/13/2020 Small bilateral pleural effusions mild cardiomegaly Cardiac troponin I 0.028, 0.031, 0.033 BNP 5190 Creatinine is 1.47Twelve-lead EKG shows sinus rhythm at 91 bpm, left ventricular hypertrophy, borderline prolonged QT interval, repolarization abnormality Transthoracic echocardiogram 01/14/2020. Left ventricular ejection fraction is severely diminished and is estimated at 20 to 25% There is moderate to severe mitral regurgitation There is mild to moderate aortic regurgitation There is moderate tricuspid regurgitation There is moderate pulmonary hypertension by echocardiogram there is no pericardial effusion Telemetry overnight shows sinus rhythm, sinus tachycardia, nonsustained ventricular tachycardia Chest x-ray 01/13/2020 Small bilateral pleural effusions mild cardiomegaly Cardiac troponin I 0.028, 0.031, 0.033 BNP 5190 Creatinine is 1.47Twelve-lead EKG shows sinus rhythm at 91 bpm, left ventricular hypertrophy, borderline prolonged QT interval, repolarization abnormality Transthoracic echocardiogram 01/14/2020. Left ventricular ejection fraction is severely diminished and is estimated at 20 to 25% There is moderate to severe mitral regurgitation There is mild to moderate aortic regurgitation There is moderate tricuspid regurgitation There is moderate pulmonary hypertension by echocardiogram there is no pericardial effusion Telemetry overnight shows sinus rhythm, sinus tachycardia, nonsustained ventricular tachycardia Chest x-ray 01/13/2020 Small bilateral pleural effusions mild cardiomegaly Cardiac troponin I 0.028, 0.031, 0.033 BNP 5190 Creatinine is 1.47Twelve-lead EKG shows sinus rhythm at 91 bpm, left ventricular hypertrophy, borderline prolonged QT interval, repolarization abnormality Transthoracic echocardiogram 01/14/2020. Left ventricular ejection fraction is severely diminished and is estimated at 20 to 25% There is moderate to severe mitral regurgitation There is mild to moderate aortic regurgitation There is moderate tricuspid regurgitation There is moderate pulmonary hypertension by echocardiogram there is no pericardial effusion Telemetry overnight shows sinus rhythm, sinus tachycardia, nonsustained ventricular tachycardia Chest x-ray 01/13/2020 Small bilateral pleural effusions mild cardiomegaly Cardiac troponin I 0.028, 0.031, 0.033 BNP 5190 Creatinine is 1.47Twelve-lead EKG shows sinus rhythm at 91 bpm, left ventricular hypertrophy, borderline prolonged QT interval, repolarization abnormality Transthoracic echocardiogram 01/14/2020. Left ventricular ejection fraction is severely diminished and is estimated at 20 to 25% There is moderate to severe mitral regurgitation There is mild to moderate aortic regurgitation There is moderate tricuspid regurgitation There is moderate pulmonary hypertension by echocardiogram there is no pericardial effusion Telemetry overnight shows sinus rhythm, sinus tachycardia, nonsustained ve ntricular tachycardia Chest x-ray 01/13/2020 Small bilateral pleural effusions mild cardiomegaly Cardiac troponin I 0.028, 0.031, 0.033 BNP 5190 Creatinine is 1.47Twelve-lead EKG shows sinus rhythm at 91 bpm, left ventricular hypertrophy, borderline prolonged QT interval, repolarization abnormality Transthoracic echocardiogram 01/14/2020. Left ventricular ejection fraction is severely diminished and is estimated at 20 to 25% There is moderate to severe mitral regurgitation There is mild to moderate aortic regurgitation There is moderate tricuspid regurgitation There is moderate pulmonary hypertension by echocardiogram there is no pericardial effusion Telemetry overnight shows sinus rhythm, sinus tachycardia, nonsustained ventricular tachycardia Chest x-ray 01/13/2020 Small bilateral pleural effusions mild cardiomegaly Cardiac troponin I 0.028, 0.031, 0.033 BNP 5190 Creatinine is 1.47Twelve-lead EKG shows sinus rhythm at 91 bpm, left ventricular hypertrophy, borderline prolonged QT interval, repolarization abnormality Transthoracic echocardiogram 01/14/2020. Left ventricular ejection fraction is severely diminished and is estimated at 20 to 25% There is moderate to severe mitral regurgitation There is mild to moderate aortic regurgitation There is moderate tricuspid regurgitation There is moderate pulmonary hypertension by echocardiogram there is no pericardial effusion Telemetry overnight shows sinus rhythm, sinus tachycardia, nonsustained ventricular tachycardia Chest x-ray 01/13/2020 Small bilateral pleural effusions mild cardiomegaly Cardiac troponin I 0.028, 0.031, 0.033 BNP 5190 Creatinine is 1.47Twelve-lead EKG shows sinus rhythm at 91 bpm, left ventricular hypertrophy, borderline prolonged QT interval, repolarization abnormality Transthoracic echocardiogram 01/14/2020. Left ventricular ejection fraction is severely diminished and is estimated at 20 to 25% There is moderate to severe mitral regurgitation There is mild to moderate aortic regurgitation There is moderate tricuspid regurgitation There is moderate pulmonary hypertension by echocardiogram there is no pericardial effusion Telemetry overnight shows sinus rhythm, sinus tachycardia, nonsustained ventricular tachycardia Chest x-ray 01/13/2020 Small bilateral pleural effusions mild cardiomegaly Cardiac troponin I 0.028, 0.031, 0.033 BNP 5190 Creatinine is 1.47Twelve-lead EKG shows sinus rhythm at 91 bpm, left ventricular hypertrophy, borderline prolonged QT interval, repolarization abnormality Transthoracic echocardiogram 01/14/2020. Left ventricular ejection fraction is severely diminished and is estimated at 20 to 25% There is moderate to severe mitral regurgitation There is mild to moderate aortic regurgitation There is moderate tricuspid regurgitation There is moderate pulmonary hypertension by echocardiogram there is no pericardial effusion Telemetry overnight shows sinus rhythm, sinus tachycardia, nonsustained ventricular tachycardia Chest x-ray 01/13/2020 Small bilateral pleural effusions mild cardiomegaly Cardiac troponin I 0.028, 0.031, 0.033 BNP 5190 Creatinine is 1.47Twelve-lead EKG shows sinus rhythm at 91 bpm, left ventricular hypertrophy, borderline prolonged QT interval, repolarization abnormality Transthoracic echocardiogram 01/14/2020. Left ventricular ejection fraction is severely diminished and is estimated at 20 to 25% There is moderate to severe mitral regurgitation There is mild to moderate aortic regurgitation There is moderate tricuspid regurgitation There is moderate pulmonary hypertension by echocardiogram there is no p ericardial effusion Telemetry overnight shows sinus rhythm, sinus tachycardia, nonsustained ventric ular tachycardia Chest x-ray 01/13/2020 Small bilateral pleural effusions mild cardiomegaly Cardiac troponin I 0.028, 0.031, 0.033 BNP 5190 Creatinine is 1.47Twelve-lead EKG shows sinus rhythm at 91 bpm, left ventricular hypertrophy, borderline prolonged QT interval, repolarization abnormality Transthoracic echocardiogram 01/14/2020. Left ventricular ejection fraction is severely diminished and is estimated at 20 to 25% There is moderate to severe mitral regurgitation There is mild to moderate aortic regurgitation There is moderate tricuspid regurgitation There is moderate pulmonary hypertension by echocardiogram there is no pericardial effusion Telemetry overnight shows sinus rhythm, sinus tachycardia, nonsustained ventricular tachycardia Chest x-ray 01/13/2020 Small bilateral pleural effusions mild cardiomegaly Cardiac troponin I 0.028, 0.031, 0.033 BNP 5190 Creatinine is 1.47Twelve-lead EKG shows sinus rhythm at 91 bpm, left ventricular hypertrophy, borderline prolonged QT interval, repolarization abnormality Transthoracic echocardiogram 01/14/2020. Left ventricular ejection fraction is severely diminished and is estimated at 20 to 25% There is moderate to severe mitral regurgitation There is mild to moderate aortic regurgitation There is moderate tricuspid regurgitation There is moderate pulmonary hypertension by echocardiogram there is no pericardial effusion Telemetry overnight shows sinus rhythm, sinus tachycardia, nonsustained ventricular tachycardia Chest x-ray 01/13/2020 Small bilateral pleural effusions mild cardiomegaly Cardiac troponin I 0.028, 0.031, 0.033 BNP 5190 Creatinine is 1.47Twelve-lead EKG shows sinus rhythm at 91 bpm, left ventricular hypertrophy, borderline prolonged QT interval, repolarization abnormality Transthoracic echocardiogram 01/14/2020. Left ventricular ejection fraction is severely diminished and is estimated at 20 to 25% There is moderate to severe mitral regurgitation There is mild to moderate aortic regurgitation There is moderate tricuspid regurgitation There is moderate pulmonary hypertension by echocardiogram there is no pericardial effusion Telemetry overnight shows sinus rhythm, sinus tachycardia, nonsustained ventricular tachycardia Chest x-ray 01/13/2020 Small bilateral pleural effusions mild cardiomegaly Cardiac troponin I 0.028, 0.031, 0.033 BNP 5190 Creatinine is 1.47Twelve-lead EKG shows sinus rhythm at 91 bpm, left ventricular hypertrophy, borderline prolonged QT interval, repolarization abnormality Transthoracic echocardiogram 01/14/2020. Left ventricular ejection fraction is severely diminished and is estimated at 20 to 25% There is moderate to severe mitral regurgitation There is mild to moderate aortic regurgitation There is moderate tricuspid regurgitation There is moderate pulmonary hypertension by echocardiogram there is no pericardial effusion Telemetry overnight shows sinus rhythm, sinus tachycardia, nonsustained ventricular tachycardia Chest x-ray 01/13/2020 Small bilateral pleural effusions mild cardiomegaly Cardiac troponin I 0.028, 0.031, 0.033 BNP 5190 Creatinine is 1.47Twelve-lead EKG shows sinus rhythm at 91 bpm, left ventricular hypertrophy, borderline prolonged QT interval, repolarization abnormality Transthoracic echocardiogram 01/14/2020. Left ventricular ejection fraction is severely diminished and is estimated at 20 to 25% There is moderate to severe mitral regurgitation There is mild to moderate aortic regurgitation There is moderate tricuspid regurgitation There is moderate pulmonary hypertension by echocardiogram there is no perica rdial effusion Telemetry overnight shows sinus rhythm, sinus tachycardia, nonsustained ventricular tachycardia Chest x-ray 01/13/2020 Small bilateral pleural effusions mild cardiomegaly Cardiac troponin I 0.028, 0.031, 0.033 BNP 5190 Creatinine is 1.47Twelve-lead EKG shows sinus rhythm at 91 bpm, left ventricular hypertrophy, borderline prolonged QT interval, repolarization abnormality Transthoracic echocardiogram 01/14/2020. Left ventricular ejection fraction is severely diminished and is estimated at 20 to 25% There is moderate to severe mitral regurgitation There is mild to moderate aortic regurgitation There is moderate tricuspid regurgitation There is moderate pulmonary hypertension by echocardiogram there is no pericardial effusion Telemetry overnight shows sinus rhythm, sinus tachycardia, nonsustained ventricular tachycardia Chest x-ray 01/13/2020 Small bilateral pleural effusions mild cardiomegaly Cardiac troponin I 0.028, 0.031, 0.033 BNP 5190 Creatinine is 1.47Twelve-lead EKG shows sinus rhythm at 91 bpm, left ventricular hypertrophy, borderline prolonged QT interval, repolarization abnormality Transthoracic echocardiogram 01/14/2020. Left ventricular ejection fraction is severely diminished and is estimated at 20 to 25% There is moderate to severe mitral regurgitation There is mild to moderate aortic regurgitation There is moderate tricuspid regurgitation There is moderate pulmonary hypertension by echocardiogram there is no pericardial effusion Telemetry overnight shows sinus rhythm, sinus tachycardia, nonsustained ventricular tachycardia Chest x-ray 01/13/2020 Small bilateral pleural effusions mild cardiomegaly Cardiac troponin I 0.028, 0.031, 0.033 BNP 5190 Creatinine is 1.47Twelve-lead EKG shows sinus rhythm at 91 bpm, left ventricular hypertrophy, borderline prolonged QT interval, repolarization abnormality Transthoracic echocardiogram 01/14/2020. Left ventricular ejection fraction is severely diminished and is estimated at 20 to 25% There is moderate to severe mitral regurgitation There is mild to moderate aortic regurgitation There is moderate tricuspid regurgitation There is moderate pulmonary hypertension by echocardiogram there is no pericardial effusion Telemetry overnight shows sinus rhythm, sinus tachycardia, nonsustained ventricular tachycardia Chest x-ray 01/13/2020 Small bilateral pleural effusions mild cardiomegaly Cardiac troponin I 0.028, 0.031, 0.033 BNP 5190 Creatinine is 1.47Twelve-lead EKG shows sinus rhythm at 91 bpm, left ventricular hypertrophy, borderline prolonged QT interval, repolarization abnormality Transthoracic echocardiogram 01/14/2020. Left ventricular ejection fraction is severely diminished and is estimated at 20 to 25% There is moderate to severe mitral regurgitation There is mild to moderate aortic regurgitation There is moderate tricuspid regurgitation There is moderate pulmonary hypertension by echocardiogram there is no pericardial effusion Telemetry overnight shows sinus rhythm, sinus tachycardia, nonsustained ventricular tachycardia Chest x-ray 01/13/2020 Small bilateral pleural effusions mild cardiomegaly Cardiac troponin I 0.028, 0.031, 0.033 BNP 5190 Creatinine is 1.47Twelve-lead EKG shows sinus rhythm at 91 bpm, left ventricular hypertrophy, borderline prolonged QT interval, repolarization abnormality Transthoracic echocardiogram 01/14/2020. Left ventricular ejection fraction is severely diminished and is estimated at 20 to 25% There is moderate to severe mitral regurgitation There is mild to moderate aortic regurgitation There is moderate tricuspid regurgitation There is moderate pulmonary hypertension by echocardiogram there is no pericardial effusion Telemetry overnight shows sinus rhythm, sinus tachycardia, nonsustained ventricular tachycardia Chest x-ray 01/13/2020 Small bilateral pleural effusions mild cardiomegaly Cardiac troponin I 0.028, 0.031, 0.033 BNP 5190 Creatinine is 1.47Twelve-lead EKG shows sinus rhythm at 91 bpm, left ventricular hypertrophy, borderline prolonged QT interval, repolarization abnormality Transthoracic echocardiogram 01/14/2020. Left ventricular ejection fraction is severely diminished and is estimated at 20 to 25% There is moderate to severe mitral regurgitation There is mild to moderate aortic regurgitation There is moderate tricuspid regurgitation There is moderate pulmonary hypertension by echocardiogram there is no pericardial effusion Telemetry overnight shows sinus rhythm, sinus tachycardia, nonsustained ventricular tachycardia Chest x-ray 01/13/2020 Small bilateral pleural effusions mild cardiomegaly Cardiac troponin I 0.028, 0.031, 0.033 BNP 5190 Creatinine is 1.47Twelve-lead EKG shows sinus rhythm at 91 bpm, left ventricular hypertrophy, borderline prolonged QT interval, repolarization abnormality Transthoracic echocardiogram 01/14/2020. Left ventricular ejection fraction is severely diminished and is estimated at 20 to 25% There is moderate to severe mitral regurgitation There is mild to moderate aortic regurgitation There is moderate tricuspid regurgitation There is moderate pulmonary hypertension by echocardiogram there is no pericardial effusion Telemetry overnight shows sinus rhythm, sinus tachycardia, nonsustained ventricular tachycardia Chest x-ray 01/13/2020 Small bilateral pleural effusions mild cardiomegaly Cardiac troponin I 0.028, 0.031, 0.033 BNP 5190 Creatinine is 1.47Twelve-lead EKG shows sinus rhythm at 91 bpm, left ventricular hypertrophy, borderline prolonged QT interval, repolarization abnormality Transthoracic echocardiogram 01/14/2020. Left ventricular ejection fraction is severely diminished and is estimated at 20 to 25% There is moderate to severe mitral regurgitation There is mild to moderate aortic regurgitation There is moderate tricuspid regurgitation There is moderate pulmonary hypertension by echocardiogram there is no pericardial effusion Telemetry overnight shows sinus rhythm, sinus tachycardia, nonsustained ventricular tachycardia Chest x-ray 01/13/2020 Small bilateral pleural effusions mild cardiomegaly Cardiac troponin I 0.028, 0.031, 0.033 BNP 5190 Creatinine is 1.47Twelve-lead EKG shows sinus rhythm at 91 bpm, left ventricular hypertrophy, borderline prolonged QT interval, repolarization abnormality Transthoracic echocardiogram 01/14/2020. Left ventricular ejection fraction is severely diminished and is estimated at 20 to 25% There is moderate to severe mitral regurgitation There is mild to moderate aortic regurgitation There is moderate tricuspid regurgitation There is moderate pulmonary hypertension by echocardiogram there is no pericardial effusion Telemetry overnight shows sinus rhythm, sinus tachycardia, nonsustained ventricular tachycardia Chest x-ray 01/13/2020 Small bilateral pleural effusions mild cardiomegaly Cardiac troponin I 0.028, 0.031, 0.033 BNP 5190 Creatinine is 1.47Twelve-lead EKG shows sinus rhythm at 91 bpm, left ventricular hypertrophy, borderline prolonged QT interval, repolarization abnormality Transthoracic echocardiogram 01/14/2020. Left ventricular ejection fraction is severely diminished and is estimated at 20 to 25% There is moderate to severe mitral regurgitation There is mild to moderate aortic regurgitation There is moderate tricuspid regurgitation There is moderate pulmonary hypertension by echocardiogram there is no pericardial effusion Telemetry overnight shows sinus rhythm, sinus tachycardia, nonsustained ventricular tachycardia Chest x-ray 01/13/2020 Small bilateral pleural effusions mild cardiomegaly Cardiac troponin I 0.028, 0.031, 0.033 BNP 5190 Creatinine is 1.47Twelve-lead EKG shows sinus rhythm at 91 bpm, left ventricular hypertrophy, borderline prolonged QT interval, repolarization abnormality Transthoracic echocardiogram 01/14/2020. Left ventricular ejection fraction is severely diminished and is estimated at 20 to 25% There is moderate to severe mitral regurgitation There is mild to moderate aortic regurgitation There is moderate tricuspid regurgitation There is moderate pulmonary hypertension by echocardiogram there is no pericardial effusion Telemetry overnight shows sinus rhythm, sinus tachycardia, nonsustained ventricular tachycardia Chest x-ray 01/13/2020 Small bilateral pleural effusions mild cardiomegaly Cardiac troponin I 0.028, 0.031, 0.033 BNP 5190 Creatinine is 1.47Twelve-lead EKG shows sinus rhythm at 91 bpm, left ventricular hypertrophy, borderline prolonged QT interval, repolarization abnormality Transthoracic echocardiogram 01/14/2020. Left ventricular ejection fraction is severely diminished and is estimated at 20 to 25% There is moderate to severe mitral regurgitation There is mild to moderate aortic regurgitation There is moderate tricuspid regurgitation There is moderate pulmonary hypertension by echocardiogram there is no pericardial effusion Telemetry overnight shows sinus rhythm, sinus tachycardia, nonsustained ventricular tachycardia Chest x-ray 01/13/2020 Small bilateral pleural effusions mild cardiomegaly Cardiac troponin I 0.028, 0.031, 0.033 BNP 5190 Creatinine is 1.47Twelve-lead EKG shows sinus rhythm at 91 bpm, left ventricular hypertrophy, borderline prolonged QT interval, repolarization abnormality Transthoracic echocardiogram 01/14/2020. Left ventricular ejection fraction is severely diminished and is estimated at 20 to 25% There is moderate to severe mitral regurgitation There is mild to moderate aortic regurgitation There is moderate tricuspid regurgitation There is moderate pulmonary hypertension by echocardiogram there is no pericardial effusion Telemetry overnight shows sinus rhythm, sinus tachycardia, nonsustained ventr icular tachycardia Chest x-ray 01/13/2020 Small bilateral pleural effusions mild cardiomegaly Cardiac troponin I 0.028, 0.031, 0.033 BNP 5190 Creatinine is 1.47Twelve-lead EKG shows sinus rhythm at 91 bpm, left ventricular hypertrophy, borderline prolonged QT interval, repolarization abnormality Transthoracic echocardiogram 01/14/2020. Left ventricular ejection fraction is severely diminished and is estimated at 20 to 25% There is moderate to severe mitral regurgitation There is mild to moderate aortic regurgitation There is moderate tricuspid regurgitation There is moderate pulmonary hypertension by echocardiogram there is no pericardial effusion Telemetry overnight shows sinus rhythm, sinus tachycardia, nonsustained ventricular tachycardia Chest x-ray 01/13/2020 Small bilateral pleural effusions mild cardiomegaly Cardiac troponin I 0.028, 0.031, 0.033 BNP 5190 Creatinine is 1.47Twelve-lead EKG shows sinus rhythm at 91 bpm, left ventricular hypertrophy, borderline prolonged QT interval, repolarization abnormality Transthoracic echocardiogram 01/14/2020. Left ventricular ejection fraction is severely diminished and is estimated at 20 to 25% There is moderate to severe mitral regurgitation There is mild to moderate aortic regurgitation There is moderate tricuspid regurgitation There is moderate pulmonary hypertension by echocardiogram there is no pericardial effusion Telemetry overnight shows sinus rhythm, sinus tachycardia, nonsustained ventricular tachycardia Chest x-ray 01/13/2020 Small bilateral pleural effusions mild cardiomegaly Cardiac troponin I 0.028, 0.031, 0.033 BNP 5190 Creatinine is 1.47Twelve-lead EKG shows sinus rhythm at 91 bpm, left ventricular hypertrophy, borderline prolonged QT interval, repolarization abnormality Transthoracic echocardiogram 01/14/2020. Left ventricular ejection fraction is severely diminished and is estimated at 20 to 25% There is moderate to severe mitral regurgitation There is mild to moderate aortic regurgitation There is moderate tricuspid regurgitation There is moderate pulmonary hypertension by echocardiogram there is no pericardial effusion Telemetry overnight shows sinus rhythm, sinus tachycardia, nonsustained ventricular tachycardia Chest x-ray 01/13/2020 Small bilateral pleural effusions mild cardiomegaly Cardiac troponin I 0.028, 0.031, 0.033 BNP 5190 Creatinine is 1.47Twelve-lead EKG shows sinus rhythm at 91 bpm, left ventricular hypertrophy, borderline prolonged QT interval, repolarization abnormality Transthoracic echocardiogram 01/14/2020. Left ventricular ejection fraction is severely diminished and is estimated at 20 to 25% There is moderate to severe mitral regurgitation There is mild to moderate aortic regurgitation There is moderate tricuspid regurgitation There is moderate pulmonary hypertension by echocardiogram there is no pericardial effusion Telemetry overnight shows sinus rhythm, sinus tachycardia, nonsustained ventricular tachycardia Chest x-ray 01/13/2020 Small bilateral pleural effusions mild cardiomegaly Cardiac troponin I 0.028, 0.031, 0.033 BNP 5190 Creatinine is 1.47Twelve-lead EKG shows sinus rhythm at 91 bpm, left ventricular hypertrophy, borderline prolonged QT interval, repolarization abnormality Transthoracic echocardiogram 01/14/2020. Left ventricular ejection fraction is severely diminished and is estimated at 20 to 25% There is moderate to severe mitral regurgitation There is mild to moderate aortic regurgitation There is moderate tricuspid regurgitation There is moderate pulmonary hypertension by echocardiogram there is no reagan cardial effusion Telemetry overnight shows sinus rhythm, sinus tachycardia, nonsustained ventricular tachycardia Chest x-ray 01/13/2020 Small bilateral pleural effusions mild cardiomegaly Cardiac troponin I 0.028, 0.031, 0.033 BNP 5190 Creatinine is 1.47Twelve-lead EKG shows sinus rhythm at 91 bpm, left ventricular hypertrophy, borderline prolonged QT interval, repolarization abnormality Transthoracic echocardiogram 01/14/2020. Left ventricular ejection fraction is severely diminished and is estimated at 20 to 25% There is moderate to severe mitral regurgitation There is mild to moderate aortic regurgitation There is moderate tricuspid regurgitation There is moderate pulmonary hypertension by echocardiogram there is no pericardial effusion Telemetry overnight shows sinus rhythm, sinus tachycardia, nonsustained ventricular tachycardia Chest x-ray 01/13/2020 Small bilateral pleural effusions mild cardiomegaly Cardiac troponin I 0.028, 0.031, 0.033 BNP 5190 Creatinine is 1.47Twelve-lead EKG shows sinus rhythm at 91 bpm, left ventricular hypertrophy, borderline prolonged QT interval, repolarization abnormality Transthoracic echocardiogram 01/14/2020. Left ventricular ejection fraction is severely diminished and is estimated at 20 to 25% There is moderate to severe mitral regurgitation There is mild to moderate aortic regurgitation There is moderate tricuspid regurgitation There is moderate pulmonary hypertension by echocardiogram there is no pericardial effusion Telemetry overnight shows sinus rhythm, sinus tachycardia, nonsustained ventricular tachycardia Chest x-ray 01/13/2020 Small bilateral pleural effusions mild cardiomegaly Cardiac troponin I 0.028, 0.031, 0.033 BNP 5190 Creatinine is 1.47Twelve-lead EKG shows sinus rhythm at 91 bpm, left ventricular hypertrophy, borderline prolonged QT interval, repolarization abnormality Transthoracic echocardiogram 01/14/2020. Left ventricular ejection fraction is severely diminished and is estimated at 20 to 25% There is moderate to severe mitral regurgitation There is mild to moderate aortic regurgitation There is moderate tricuspid regurgitation There is moderate pulmonary hypertension by echocardiogram there is no pericardial effusion Telemetry overnight shows sinus rhythm, sinus tachycardia, nonsustained ventricular tachycardia Chest x-ray 01/13/2020 Small bilateral pleural effusions mild cardiomegaly Cardiac troponin I 0.028, 0.031, 0.033 BNP 5190 Creatinine is 1.47Twelve-lead EKG shows sinus rhythm at 91 bpm, left ventricular hypertrophy, borderline prolonged QT interval, repolarization abnormality Transthoracic echocardiogram 01/14/2020. Left ventricular ejection fraction is severely diminished and is estimated at 20 to 25% There is moderate to severe mitral regurgitation There is mild to moderate aortic regurgitation There is moderate tricuspid regurgitation There is moderate pulmonary hypertension by echocardiogram there is no pericardial effusion Telemetry overnight shows sinus rhythm, sinus tachycardia, nonsustained ventricular tachycardia Chest x-ray 01/13/2020 Small bilateral pleural effusions mild cardiomegaly Cardiac troponin I 0.028, 0.031, 0.033 BNP 5190 Creatinine is 1.47Twelve-lead EKG shows sinus rhythm at 91 bpm, left ventricular hypertrophy, borderline prolonged QT interval, repolarization abnormality Transthoracic echocardiogram 01/14/2020. Left ventricular ejection fraction is severely diminished and is estimated at 20 to 25% There is moderate to severe mitral regurgitation There is mild to moderate aortic regurgitation There is moderate tricuspid regurgitation There is moderate pulmonary hypertension by echocardiogram there is no pericardi al effusion Telemetry overnight shows sinus rhythm, sinus tachycardia, nonsustained ventricular tachycardia Chest x-ray 01/13/2020 Small bilateral pleural effusions mild cardiomegaly Cardiac troponin I 0.028, 0.031, 0.033 BNP 5190 Creatinine is 1.47Twelve-lead EKG shows sinus rhythm at 91 bpm, left ventricular hypertrophy, borderline prolonged QT interval, repolarization abnormality Transthoracic echocardiogram 01/14/2020. Left ventricular ejection fraction is severely diminished and is estimated at 20 to 25% There is moderate to severe mitral regurgitation There is mild to moderate aortic regurgitation There is moderate tricuspid regurgitation There is moderate pulmonary hypertension by echocardiogram there is no pericardial effusion Telemetry overnight shows sinus rhythm, sinus tachycardia, nonsustained ventricular tachycardia Chest x-ray 01/13/2020 Small bilateral pleural effusions mild cardiomegaly Cardiac troponin I 0.028, 0.031, 0.033 BNP 5190 Creatinine is 1.47Twelve-lead EKG shows sinus rhythm at 91 bpm, left ventricular hypertrophy, borderline prolonged QT interval, repolarization abnormality Transthoracic echocardiogram 01/14/2020. Left ventricular ejection fraction is severely diminished and is estimated at 20 to 25% There is moderate to severe mitral regurgitation There is mild to moderate aortic regurgitation There is moderate tricuspid regurgitation There is moderate pulmonary hypertension by echocardiogram there is no pericardial effusion Telemetry overnight shows sinus rhythm, sinus tachycardia, nonsustained ventricular tachycardia Chest x-ray 01/13/2020 Small bilateral pleural effusions mild cardiomegaly Cardiac troponin I 0.028, 0.031, 0.033 BNP 5190 Creatinine is 1.47Twelve-lead EKG shows sinus rhythm at 91 bpm, left ventricular hypertrophy, borderline prolonged QT interval, repolarization abnormality Transthoracic echocardiogram 01/14/2020. Left ventricular ejection fraction is severely diminished and is estimated at 20 to 25% There is moderate to severe mitral regurgitation There is mild to moderate aortic regurgitation There is moderate tricuspid regurgitation There is moderate pulmonary hypertension by echocardiogram there is no pericardial effusion Telemetry overnight shows sinus rhythm, sinus tachycardia, nonsustained ventricular tachycardia Chest x-ray 01/13/2020 Small bilateral pleural effusions mild cardiomegaly Cardiac troponin I 0.028, 0.031, 0.033 BNP 5190 Creatinine is 1.47Twelve-lead EKG shows sinus rhythm at 91 bpm, left ventricular hypertrophy, borderline prolonged QT interval, repolarization abnormality Transthoracic echocardiogram 01/14/2020. Left ventricular ejection fraction is severely diminished and is estimated at 20 to 25% There is moderate to severe mitral regurgitation There is mild to moderate aortic regurgitation There is moderate tricuspid regurgitation There is moderate pulmonary hypertension by echocardiogram there is no pericardial effusion Telemetry overnight shows sinus rhythm, sinus tachycardia, nonsustained ventricular tachycardia Chest x-ray 01/13/2020 Small bilateral pleural effusions mild cardiomegaly Cardiac troponin I 0.028, 0.031, 0.033 BNP 5190 Creatinine is 1.47Twelve-lead EKG shows sinus rhythm at 91 bpm, left ventricular hypertrophy, borderline prolonged QT interval, repolarization abnormality Transthoracic echocardiogram 01/14/2020. Left ventricular ejection fraction is severely diminished and is estimated at 20 to 25% There is moderate to severe mitral regurgitation There is mild to moderate aortic regurgitation There is moderate tricuspid regurgitation There is moderate pulmonary hypertension by echocardiogram there is no pericardial effusion Telemetry overnight shows sinus rhythm, sinus tachycardia, nonsustained ventricular tachycardia Chest x-ray 01/13/2020 Small bilateral pleural effusions mild cardiomegaly Cardiac troponin I 0.028, 0.031, 0.033 BNP 5190 Creatinine is 1.47Twelve-lead EKG shows sinus rhythm at 91 bpm, left ventricular hypertrophy, borderline prolonged QT interval, repolarization abnormality Transthoracic echocardiogram 01/14/2020. Left ventricular ejection fraction is severely diminished and is estimated at 20 to 25% There is moderate to severe mitral regurgitation There is mild to moderate aortic regurgitation There is moderate tricuspid regurgitation There is moderate pulmonary hypertension by echocardiogram there is no pericardial effusion Telemetry overnight shows sinus rhythm, sinus tachycardia, nonsustained ventricular tachycardia Chest x-ray 01/13/2020 Small bilateral pleural effusions mild cardiomegaly Cardiac troponin I 0.028, 0.031, 0.033 BNP 5190 Creatinine is 1.47Twelve-lead EKG shows sinus rhythm at 91 bpm, left ventricular hypertrophy, borderline prolonged QT interval, repolarization abnormality Transthoracic echocardiogram 01/14/2020. Left ventricular ejection fraction is severely diminished and is estimated at 20 to 25% There is moderate to severe mitral regurgitation There is mild to moderate aortic regurgitation There is moderate tricuspid regurgitation There is moderate pulmonary hypertension by echocardiogram there is no pericardial effusion Telemetry overnight shows sinus rhythm, sinus tachycardia, nonsustained ventricular tachycardia Chest x-ray 01/13/2020 Small bilateral pleural effusions mild cardiomegaly Cardiac troponin I 0.028, 0.031, 0.033 BNP 5190 Creatinine is 1.47Twelve-lead EKG shows sinus rhythm at 91 bpm, left ventricular hypertrophy, borderline prolonged QT interval, repolarization abnormality Transthoracic echocardiogram 01/14/2020. Left ventricular ejection fraction is severely diminished and is estimated at 20 to 25% There is moderate to severe mitral regurgitation There is mild to moderate aortic regurgitation There is moderate tricuspid regurgitation There is moderate pulmonary hypertension by echocardiogram there is no pericardial effusion Telemetry overnight shows sinus rhythm, sinus tachycardia, nonsustained caro tricular tachycardia Chest x-ray 01/13/2020 Small bilateral pleural effusions mild cardiomegaly Cardiac troponin I 0.028, 0.031, 0.033 BNP 5190 Creatinine is 1.47Twelve-lead EKG shows sinus rhythm at 91 bpm, left ventricular hypertrophy, borderline prolonged QT interval, repolarization abnormality Transthoracic echocardiogram 01/14/2020. Left ventricular ejection fraction is severely diminished and is estimated at 20 to 25% There is moderate to severe mitral regurgitation There is mild to moderate aortic regurgitation There is moderate tricuspid regurgitation There is moderate pulmonary hypertension by echocardiogram there is no pericardial effusion Telemetry overnight shows sinus rhythm, sinus tachycardia, nonsustained ventricular tachycardia Chest x-ray 01/13/2020 Small bilateral pleural effusions mild cardiomegaly Cardiac troponin I 0.028, 0.031, 0.033 BNP 5190 Creatinine is 1.47Twelve-lead EKG shows sinus rhythm at 91 bpm, left ventricular hypertrophy, borderline prolonged QT interval, repolarization abnormality Transthoracic echocardiogram 01/14/2020. Left ventricular ejection fraction is severely diminished and is estimated at 20 to 25% There is moderate to severe mitral regurgitation There is mild to moderate aortic regurgitation There is moderate tricuspid regurgitation There is moderate pulmonary hypertension by echocardiogram there is no pericardial effusion Telemetry overnight shows sinus rhythm, sinus tachycardia, nonsustained ventricular tachycardia Chest x-ray 01/13/2020 Small bilateral pleural effusions mild cardiomegaly Cardiac troponin I 0.028, 0.031, 0.033 BNP 5190 Creatinine is 1.47Twelve-lead EKG shows sinus rhythm at 91 bpm, left ventricular hypertrophy, borderline prolonged QT interval, repolarization abnormality Transthoracic echocardiogram 01/14/2020. Left ventricular ejection fraction is severely diminished and is estimated at 20 to 25% There is moderate to severe mitral regurgitation There is mild to moderate aortic regurgitation There is moderate tricuspid regurgitation There is moderate pulmonary hypertension by echocardiogram there is no pericardial effusion Telemetry overnight shows sinus rhythm, sinus tachycardia, nonsustained ventricular tachycardia Chest x-ray 01/13/2020 Small bilateral pleural effusions mild cardiomegaly Cardiac troponin I 0.028, 0.031, 0.033 BNP 5190 Creatinine is 1.47Twelve-lead EKG shows sinus rhythm at 91 bpm, left ventricular hypertrophy, borderline prolonged QT interval, repolarization abnormality Transthoracic echocardiogram 01/14/2020. Left ventricular ejection fraction is severely diminished and is estimated at 20 to 25% There is moderate to severe mitral regurgitation There is mild to moderate aortic regurgitation There is moderate tricuspid regurgitation There is moderate pulmonary hypertension by echocardiogram there is no pericardial effusion Telemetry overnight shows sinus rhythm, sinus tachycardia, nonsustained ventricular tachycardia Chest x-ray 01/13/2020 Small bilateral pleural effusions mild cardiomegaly Cardiac troponin I 0.028, 0.031, 0.033 BNP 5190 Creatinine is 1.47Twelve-lead EKG shows sinus rhythm at 91 bpm, left ventricular hypertrophy, borderline prolonged QT interval, repolarization abnormality Transthoracic echocardiogram 01/14/2020. Left ventricular ejection fraction is severely diminished and is estimated at 20 to 25% There is moderate to severe mitral regurgitation There is mild to moderate aortic regurgitation There is moderate tricuspid regurgitation There is moderate pulmonary hypertension by echocardiogram there is no pe ricardial effusion Telemetry overnight shows sinus rhythm, sinus tachycardia, nonsustained ventricu lar tachycardia Chest x-ray 01/13/2020 Small bilateral pleural effusions mild cardiomegaly Cardiac troponin I 0.028, 0.031, 0.033 BNP 5190 Creatinine is 1.47Twelve-lead EKG shows sinus rhythm at 91 bpm, left ventricular hypertrophy, borderline prolonged QT interval, repolarization abnormality Transthoracic echocardiogram 01/14/2020. Left ventricular ejection fraction is severely diminished and is estimated at 20 to 25% There is moderate to severe mitral regurgitation There is mild to moderate aortic regurgitation There is moderate tricuspid regurgitation There is moderate pulmonary hypertension by echocardiogram there is no pericardial effusion Telemetry overnight shows sinus rhythm, sinus tachycardia, nonsustained ventricular tachycardia Chest x-ray 01/13/2020 Small bilateral pleural effusions mild cardiomegaly Cardiac troponin I 0.028, 0.031, 0.033 BNP 5190 Creatinine is 1.47Twelve-lead EKG shows sinus rhythm at 91 bpm, left ventricular hypertrophy, borderline prolonged QT interval, repolarization abnormality Transthoracic echocardiogram 01/14/2020. Left ventricular ejection fraction is severely diminished and is estimated at 20 to 25% There is moderate to severe mitral regurgitation There is mild to moderate aortic regurgitation There is moderate tricuspid regurgitation There is moderate pulmonary hypertension by echocardiogram there is no pericardial effusion Telemetry overnight shows sinus rhythm, sinus tachycardia, nonsustained ventricular tachycardia Chest x-ray 01/13/2020 Small bilateral pleural effusions mild cardiomegaly Cardiac troponin I 0.028, 0.031, 0.033 BNP 5190 Creatinine is 1.47Twelve-lead EKG shows sinus rhythm at 91 bpm, left ventricular hypertrophy, borderline prolonged QT interval, repolarization abnormality Transthoracic echocardiogram 01/14/2020. Left ventricular ejection fraction is severely diminished and is estimated at 20 to 25% There is moderate to severe mitral regurgitation There is mild to moderate aortic regurgitation There is moderate tricuspid regurgitation There is moderate pulmonary hypertension by echocardiogram there is no pericardial effusion Telemetry overnight shows sinus rhythm, sinus tachycardia, nonsustained ventricular tachycardia Chest x-ray 01/13/2020 Small bilateral pleural effusions mild cardiomegaly Cardiac troponin I 0.028, 0.031, 0.033 BNP 5190 Creatinine is 1.47Twelve-lead EKG shows sinus rhythm at 91 bpm, left ventricular hypertrophy, borderline prolonged QT interval, repolarization abnormality Transthoracic echocardiogram 01/14/2020. Left ventricular ejection fraction is severely diminished and is estimated at 20 to 25% There is moderate to severe mitral regurgitation There is mild to moderate aortic regurgitation There is moderate tricuspid regurgitation There is moderate pulmonary hypertension by echocardiogram there is no pericardial effusion Telemetry overnight shows sinus rhythm, sinus tachycardia, nonsustained ventricular tachycardia Chest x-ray 01/13/2020 Small bilateral pleural effusions mild cardiomegaly Cardiac troponin I 0.028, 0.031, 0.033 BNP 5190 Creatinine is 1.47Twelve-lead EKG shows sinus rhythm at 91 bpm, left ventricular hypertrophy, borderline prolonged QT interval, repolarization abnormality Transthoracic echocardiogram 01/14/2020. Left ventricular ejection fraction is severely diminished and is estimated at 20 to 25% There is moderate to severe mitral regurgitation There is mild to moderate aortic regurgitation There is moderate tricuspid regurgitation There is moderate pulmonary hypertension by echocardiogram there is no pericar dial effusion Telemetry overnight shows sinus rhythm, sinus tachycardia, nonsustained ventricular tachycardia Chest x-ray 01/13/2020 Small bilateral pleural effusions mild cardiomegaly Cardiac troponin I 0.028, 0.031, 0.033 BNP 5190 Creatinine is 1.47Twelve-lead EKG shows sinus rhythm at 91 bpm, left ventricular hypertrophy, borderline prolonged QT interval, repolarization abnormality Transthoracic echocardiogram 01/14/2020. Left ventricular ejection fraction is severely diminished and is estimated at 20 to 25% There is moderate to severe mitral regurgitation There is mild to moderate aortic regurgitation There is moderate tricuspid regurgitation There is moderate pulmonary hypertension by echocardiogram there is no pericardial effusion Telemetry overnight shows sinus rhythm, sinus tachycardia, nonsustained ventricular tachycardia Chest x-ray 01/13/2020 Small bilateral pleural effusions mild cardiomegaly Cardiac troponin I 0.028, 0.031, 0.033 BNP 5190 Creatinine is 1.47Twelve-lead EKG shows sinus rhythm at 91 bpm, left ventricular hypertrophy, borderline prolonged QT interval, repolarization abnormality Transthoracic echocardiogram 01/14/2020. Left ventricular ejection fraction is severely diminished and is estimated at 20 to 25% There is moderate to severe mitral regurgitation There is mild to moderate aortic regurgitation There is moderate tricuspid regurgitation There is moderate pulmonary hypertension by echocardiogram there is no pericardial effusion Telemetry overnight shows sinus rhythm, sinus tachycardia, nonsustained ventricular tachycardia Chest x-ray 01/13/2020 Small bilateral pleural effusions mild cardiomegaly Cardiac troponin I 0.028, 0.031, 0.033 BNP 5190 Creatinine is 1.47Twelve-lead EKG shows sinus rhythm at 91 bpm, left ventricular hypertrophy, borderline prolonged QT interval, repolarization abnormality Transthoracic echocardiogram 01/14/2020. Left ventricular ejection fraction is severely diminished and is estimated at 20 to 25% There is moderate to severe mitral regurgitation There is mild to moderate aortic regurgitation There is moderate tricuspid regurgitation There is moderate pulmonary hypertension by echocardiogram there is no pericardial effusion Telemetry overnight shows sinus rhythm, sinus tachycardia, nonsustained ventricular tachycardia Chest x-ray 01/13/2020 Small bilateral pleural effusions mild cardiomegaly Cardiac troponin I 0.028, 0.031, 0.033 BNP 5190 Creatinine is 1.47Twelve-lead EKG shows sinus rhythm at 91 bpm, left ventricular hypertrophy, borderline prolonged QT interval, repolarization abnormality Transthoracic echocardiogram 01/14/2020. Left ventricular ejection fraction is severely diminished and is estimated at 20 to 25% There is moderate to severe mitral regurgitation There is mild to moderate aortic regurgitation There is moderate tricuspid regurgitation There is moderate pulmonary hypertension by echocardiogram there is no pericardial effusion Telemetry overnight shows sinus rhythm, sinus tachycardia, nonsustained ventricular tachycardia Chest x-ray 01/13/2020 Small bilateral pleural effusions mild cardiomegaly Cardiac troponin I 0.028, 0.031, 0.033 BNP 5190 Creatinine is 1.47Twelve-lead EKG shows sinus rhythm at 91 bpm, left ventricular hypertrophy, borderline prolonged QT interval, repolarization abnormality Transthoracic echocardiogram 01/14/2020. Left ventricular ejection fraction is severely diminished and is estimated at 20 to 25% There is moderate to severe mitral regurgitation There is mild to moderate aortic regurgitation There is moderate tricuspid regurgitation There is moderate pulmonary hypertension by echocardiogram there is no pericardial effusion Telemetry overnight shows sinus rhythm, sinus tachycardia, nonsustained ventricular tachycardia Chest x-ray 01/13/2020 Small bilateral pleural effusions mild cardiomegaly Cardiac troponin I 0.028, 0.031, 0.033 BNP 5190 Creatinine is 1.47Twelve-lead EKG shows sinus rhythm at 91 bpm, left ventricular hypertrophy, borderline prolonged QT interval, repolarization abnormality Transthoracic echocardiogram 01/14/2020. Left ventricular ejection fraction is severely diminished and is estimated at 20 to 25% There is moderate to severe mitral regurgitation There is mild to moderate aortic regurgitation There is moderate tricuspid regurgitation There is moderate pulmonary hypertension by echocardiogram there is no pericardial effusion Telemetry overnight shows sinus rhythm, sinus tachycardia, nonsustained ventricular tachycardia Chest x-ray 01/13/2020 Small bilateral pleural effusions mild cardiomegaly Cardiac troponin I 0.028, 0.031, 0.033 BNP 5190 Creatinine is 1.47Twelve-lead EKG shows sinus rhythm at 91 bpm, left ventricular hypertrophy, borderline prolonged QT interval, repolarization abnormality Transthoracic echocardiogram 01/14/2020. Left ventricular ejection fraction is severely diminished and is estimated at 20 to 25% There is moderate to severe mitral regurgitation There is mild to moderate aortic regurgitation There is moderate tricuspid regurgitation There is moderate pulmonary hypertension by echocardiogram there is no pericardial effusion Telemetry overnight shows sinus rhythm, sinus tachycardia, nonsustained ventricular tachycardia Chest x-ray 01/13/2020 Small bilateral pleural effusions mild cardiomegaly Cardiac troponin I 0.028, 0.031, 0.033 BNP 5190 Creatinine is 1.47Twelve-lead EKG shows sinus rhythm at 91 bpm, left ventricular hypertrophy, borderline prolonged QT interval, repolarization abnormality Transthoracic echocardiogram 01/14/2020. Left ventricular ejection fraction is severely diminished and is estimated at 20 to 25% There is moderate to severe mitral regurgitation There is mild to moderate aortic regurgitation There is moderate tricuspid regurgitation There is moderate pulmonary hypertension by echocardiogram there is no pericardial effusion Telemetry overnight shows sinus rhythm, sinus tachycardia, nonsustained v entricular tachycardia Chest x-ray 01/13/2020 Small bilateral pleural effusions mild cardiomegaly Cardiac troponin I 0.028, 0.031, 0.033 BNP 5190 Creatinine is 1.47Twelve-lead EKG shows sinus rhythm at 91 bpm, left ventricular hypertrophy, borderline prolonged QT interval, repolarization abnormality Transthoracic echocardiogram 01/14/2020. Left ventricular ejection fraction is severely diminished and is estimated at 20 to 25% There is moderate to severe mitral regurgitation There is mild to moderate aortic regurgitation There is moderate tricuspid regurgitation There is moderate pulmonary hypertension by echocardiogram there is no pericardial effusion Telemetry overnight shows sinus rhythm, sinus tachycardia, nonsustained ventricular tachycardia Chest x-ray 01/13/2020 Small bilateral pleural effusions mild cardiomegaly Cardiac troponin I 0.028, 0.031, 0.033 BNP 5190 Creatinine is 1.47Twelve-lead EKG shows sinus rhythm at 91 bpm, left ventricular hypertrophy, borderline prolonged QT interval, repolarization abnormality Transthoracic echocardiogram 01/14/2020. Left ventricular ejection fraction is severely diminished and is estimated at 20 to 25% There is moderate to severe mitral regurgitation There is mild to moderate aortic regurgitation There is moderate tricuspid regurgitation There is moderate pulmonary hypertension by echocardiogram there is no pericardial effusion Telemetry overnight shows sinus rhythm, sinus tachycardia, nonsustained ventricular tachycardia Chest x-ray 01/13/2020 Small bilateral pleural effusions mild cardiomegaly Cardiac troponin I 0.028, 0.031, 0.033 BNP 5190 Creatinine is 1.47Twelve-lead EKG shows sinus rhythm at 91 bpm, left ventricular hypertrophy, borderline prolonged QT interval, repolarization abnormality Transthoracic echocardiogram 01/14/2020. Left ventricular ejection fraction is severely diminished and is estimated at 20 to 25% There is moderate to severe mitral regurgitation There is mild to moderate aortic regurgitation There is moderate tricuspid regurgitation There is moderate pulmonary hypertension by echocardiogram there is no pericardial effusion Telemetry overnight shows sinus rhythm, sinus tachycardia, nonsustained ventricular tachycardia Chest x-ray 01/13/2020 Small bilateral pleural effusions mild cardiomegaly Cardiac troponin I 0.028, 0.031, 0.033 BNP 5190 Creatinine is 1.47Twelve-lead EKG shows sinus rhythm at 91 bpm, left ventricular hypertrophy, borderline prolonged QT interval, repolarization abnormality Transthoracic echocardiogram 01/14/2020. Left ventricular ejection fraction is severely diminished and is estimated at 20 to 25% There is moderate to severe mitral regurgitation There is mild to moderate aortic regurgitation There is moderate tricuspid regurgitation There is moderate pulmonary hypertension by echocardiogram there is no pericardial effusion Telemetry overnight shows sinus rhythm, sinus tachycardia, nonsustained ventricular tachycardia Chest x-ray 01/13/2020 Small bilateral pleural effusions mild cardiomegaly Cardiac troponin I 0.028, 0.031, 0.033 BNP 5190 Creatinine is 1.47Twelve-lead EKG shows sinus rhythm at 91 bpm, left ventricular hypertrophy, borderline prolonged QT interval, repolarization abnormality Transthoracic echocardiogram 01/14/2020. Left ventricular ejection fraction is severely diminished and is estimated at 20 to 25% There is moderate to severe mitral regurgitation There is mild to moderate aortic regurgitation There is moderate tricuspid regurgitation There is moderate pulmonary hypertension by echocardiogram there is no pericardial effusion Telemetry overnight shows sinus rhythm, sinus tachycardia, nonsustained ventri cular tachycardia Chest x-ray 01/13/2020 Small bilateral pleural effusions mild cardiomegaly Cardiac troponin I 0.028, 0.031, 0.033 BNP 5190 Creatinine is 1.47Twelve-lead EKG shows sinus rhythm at 91 bpm, left ventricular hypertrophy, borderline prolonged QT interval, repolarization abnormality Transthoracic echocardiogram 01/14/2020. Left ventricular ejection fraction is severely diminished and is estimated at 20 to 25% There is moderate to severe mitral regurgitation There is mild to moderate aortic regurgitation There is moderate tricuspid regurgitation There is moderate pulmonary hypertension by echocardiogram there is no pericardial effusion Telemetry overnight shows sinus rhythm, sinus tachycardia, nonsustained ventricular tachycardia Chest x-ray 01/13/2020 Small bilateral pleural effusions mild cardiomegaly Cardiac troponin I 0.028, 0.031, 0.033 BNP 5190 Creatinine is 1.47Twelve-lead EKG shows sinus rhythm at 91 bpm, left ventricular hypertrophy, borderline prolonged QT interval, repolarization abnormality Transthoracic echocardiogram 01/14/2020. Left ventricular ejection fraction is severely diminished and is estimated at 20 to 25% There is moderate to severe mitral regurgitation There is mild to moderate aortic regurgitation There is moderate tricuspid regurgitation There is moderate pulmonary hypertension by echocardiogram there is no pericardial effusion Telemetry overnight shows sinus rhythm, sinus tachycardia, nonsustained ventricular tachycardia Chest x-ray 01/13/2020 Small bilateral pleural effusions mild cardiomegaly Cardiac troponin I 0.028, 0.031, 0.033 BNP 5190 Creatinine is 1.47Twelve-lead EKG shows sinus rhythm at 91 bpm, left ventricular hypertrophy, borderline prolonged QT interval, repolarization abnormality Transthoracic echocardiogram 01/14/2020. Left ventricular ejection fraction is severely diminished and is estimated at 20 to 25% There is moderate to severe mitral regurgitation There is mild to moderate aortic regurgitation There is moderate tricuspid regurgitation There is moderate pulmonary hypertension by echocardiogram there is no pericardial effusion Telemetry overnight shows sinus rhythm, sinus tachycardia, nonsustained ventricular tachycardia Chest x-ray 01/13/2020 Small bilateral pleural effusions mild cardiomegaly Cardiac troponin I 0.028, 0.031, 0.033 BNP 5190 Creatinine is 1.47Twelve-lead EKG shows sinus rhythm at 91 bpm, left ventricular hypertrophy, borderline prolonged QT interval, repolarization abnormality Transthoracic echocardiogram 01/14/2020. Left ventricular ejection fraction is severely diminished and is estimated at 20 to 25% There is moderate to severe mitral regurgitation There is mild to moderate aortic regurgitation There is moderate tricuspid regurgitation There is moderate pulmonary hypertension by echocardiogram there is no pericardial effusion Telemetry overnight shows sinus rhythm, sinus tachycardia, nonsustained ventricular tachycardia Chest x-ray 01/13/2020 Small bilateral pleural effusions mild cardiomegaly Cardiac troponin I 0.028, 0.031, 0.033 BNP 5190 Creatinine is 1.47Twelve-lead EKG shows sinus rhythm at 91 bpm, left ventricular hypertrophy, borderline prolonged QT interval, repolarization abnormality Transthoracic echocardiogram 01/14/2020. Left ventricular ejection fraction is severely diminished and is estimated at 20 to 25% There is moderate to severe mitral regurgitation There is mild to moderate aortic regurgitation There is moderate tricuspid regurgitation There is moderate pulmonary hypertension by echocardiogram there is no peric ardial effusion Telemetry overnight shows sinus rhythm, sinus tachycardia, nonsustained ventricular tachycardia Chest x-ray 01/13/2020 Small bilateral pleural effusions mild cardiomegaly Cardiac troponin I 0.028, 0.031, 0.033 BNP 5190 Creatinine is 1.47Twelve-lead EKG shows sinus rhythm at 91 bpm, left ventricular hypertrophy, borderline prolonged QT interval, repolarization abnormality Transthoracic echocardiogram 01/14/2020. Left ventricular ejection fraction is severely diminished and is estimated at 20 to 25% There is moderate to severe mitral regurgitation There is mild to moderate aortic regurgitation There is moderate tricuspid regurgitation There is moderate pulmonary hypertension by echocardiogram there is no pericardial effusion Telemetry overnight shows sinus rhythm, sinus tachycardia, nonsustained ventricular tachycardia Chest x-ray 01/13/2020 Small bilateral pleural effusions mild cardiomegaly Cardiac troponin I 0.028, 0.031, 0.033 BNP 5190 Creatinine is 1.47Twelve-lead EKG shows sinus rhythm at 91 bpm, left ventricular hypertrophy, borderline prolonged QT interval, repolarization abnormality Transthoracic echocardiogram 01/14/2020. Left ventricular ejection fraction is severely diminished and is estimated at 20 to 25% There is moderate to severe mitral regurgitation There is mild to moderate aortic regurgitation There is moderate tricuspid regurgitation There is moderate pulmonary hypertension by echocardiogram there is no pericardial effusion Telemetry overnight shows sinus rhythm, sinus tachycardia, nonsustained ventricular tachycardia Chest x-ray 01/13/2020 Small bilateral pleural effusions mild cardiomegaly Cardiac troponin I 0.028, 0.031, 0.033 BNP 5190 Creatinine is 1.47Twelve-lead EKG shows sinus rhythm at 91 bpm, left ventricular hypertrophy, borderline prolonged QT interval, repolarization abnormality Transthoracic echocardiogram 01/14/2020. Left ventricular ejection fraction is severely diminished and is estimated at 20 to 25% There is moderate to severe mitral regurgitation There is mild to moderate aortic regurgitation There is moderate tricuspid regurgitation There is moderate pulmonary hypertension by echocardiogram there is no pericardial effusion Telemetry overnight shows sinus rhythm, sinus tachycardia, nonsustained ventricular tachycardia Chest x-ray 01/13/2020 Small bilateral pleural effusions mild cardiomegaly Cardiac troponin I 0.028, 0.031, 0.033 BNP 5190 Creatinine is 1.47Twelve-lead EKG shows sinus rhythm at 91 bpm, left ventricular hypertrophy, borderline prolonged QT interval, repolarization abnormality Transthoracic echocardiogram 01/14/2020. Left ventricular ejection fraction is severely diminished and is estimated at 20 to 25% There is moderate to severe mitral regurgitation There is mild to moderate aortic regurgitation There is moderate tricuspid regurgitation There is moderate pulmonary hypertension by echocardiogram there is no pericardial effusion Telemetry overnight shows sinus rhythm, sinus tachycardia, nonsustained ventricular tachycardia Chest x-ray 01/13/2020 Small bilateral pleural effusions mild cardiomegaly Cardiac troponin I 0.028, 0.031, 0.033 BNP 5190 Creatinine is 1.47Twelve-lead EKG shows sinus rhythm at 91 bpm, left ventricular hypertrophy, borderline prolonged QT interval, repolarization abnormality Transthoracic echocardiogram 01/14/2020. Left ventricular ejection fraction is severely diminished and is estimated at 20 to 25% There is moderate to severe mitral regurgitation There is mild to moderate aortic regurgitation There is moderate tricuspid regurgitation There is moderate pulmonary hypertension by echocardiogram there is no pericardial effusion Telemetry overnight shows sinus rhythm, sinus tachycardia, nonsustained ventricular tachycardia Chest x-ray 01/13/2020 Small bilateral pleural effusions mild cardiomegaly Cardiac troponin I 0.028, 0.031, 0.033 BNP 5190 Creatinine is 1.47Twelve-lead EKG shows sinus rhythm at 91 bpm, left ventricular hypertrophy, borderline prolonged QT interval, repolarization abnormality Transthoracic echocardiogram 01/14/2020. Left ventricular ejection fraction is severely diminished and is estimated at 20 to 25% There is moderate to severe mitral regurgitation There is mild to moderate aortic regurgitation There is moderate tricuspid regurgitation There is moderate pulmonary hypertension by echocardiogram there is no pericardial effusion Telemetry overnight shows sinus rhythm, sinus tachycardia, nonsustained ventricular tachycardia Chest x-ray 01/13/2020 Small bilateral pleural effusions mild cardiomegaly Cardiac troponin I 0.028, 0.031, 0.033 BNP 5190 Creatinine is 1.47Twelve-lead EKG shows sinus rhythm at 91 bpm, left ventricular hypertrophy, borderline prolonged QT interval, repolarization abnormality Transthoracic echocardiogram 01/14/2020. Left ventricular ejection fraction is severely diminished and is estimated at 20 to 25% There is moderate to severe mitral regurgitation There is mild to moderate aortic regurgitation There is moderate tricuspid regurgitation There is moderate pulmonary hypertension by echocardiogram there is no pericardial effusion Telemetry overnight shows sinus rhythm, sinus tachycardia, nonsustained ventricular tachycardia Chest x-ray 01/13/2020 Small bilateral pleural effusions mild cardiomegaly Cardiac troponin I 0.028, 0.031, 0.033 BNP 5190 Creatinine is 1.47Twelve-lead EKG shows sinus rhythm at 91 bpm, left ventricular hypertrophy, borderline prolonged QT interval, repolarization abnormality Transthoracic echocardiogram 01/14/2020. Left ventricular ejection fraction is severely diminished and is estimated at 20 to 25% There is moderate to severe mitral regurgitation There is mild to moderate aortic regurgitation There is moderate tricuspid regurgitation There is moderate pulmonary hypertension by echocardiogram there is no pericardial effusion Telemetry overnight shows sinus rhythm, sinus tachycardia, nonsustained ventricular tachycardia Chest x-ray 01/13/2020 Small bilateral pleural effusions mild cardiomegaly Cardiac troponin I 0.028, 0.031, 0.033 BNP 5190 Creatinine is 1.47Twelve-lead EKG shows sinus rhythm at 91 bpm, left ventricular hypertrophy, borderline prolonged QT interval, repolarization abnormality Transthoracic echocardiogram 01/14/2020. Left ventricular ejection fraction is severely diminished and is estimated at 20 to 25% There is moderate to severe mitral regurgitation There is mild to moderate aortic regurgitation There is moderate tricuspid regurgitation There is moderate pulmonary hypertension by echocardiogram there is no pericardial effusion Telemetry overnight shows sinus rhythm, sinus tachycardia, nonsustained ventricular tachycardia Chest x-ray 01/13/2020 Small bilateral pleural effusions mild cardiomegaly Cardiac troponin I 0.028, 0.031, 0.033 BNP 5190 Creatinine is 1.47Twelve-lead EKG shows sinus rhythm at 91 bpm, left ventricular hypertrophy, borderline prolonged QT interval, repolarization abnormality Transthoracic echocardiogram 01/14/2020. Left ventricular ejection fraction is severely diminished and is estimated at 20 to 25% There is moderate to severe mitral regurgitation There is mild to moderate aortic regurgitation There is moderate tricuspid regurgitation There is moderate pulmonary hypertension by echocardiogram there is no pericardial effusion Telemetry overnight shows sinus rhythm, sinus tachycardia, nonsustained ventricular tachycardia Chest x-ray 01/13/2020 Small bilateral pleural effusions mild cardiomegaly Cardiac troponin I 0.028, 0.031, 0.033 BNP 5190 Creatinine is 1.47Twelve-lead EKG shows sinus rhythm at 91 bpm, left ventricular hypertrophy, borderline prolonged QT interval, repolarization abnormality Transthoracic echocardiogram 01/14/2020. Left ventricular ejection fraction is severely diminished and is estimated at 20 to 25% There is moderate to severe mitral regurgitation There is mild to moderate aortic regurgitation There is moderate tricuspid regurgitation There is moderate pulmonary hypertension by echocardiogram there is no pericardial effusion Telemetry overnight shows sinus rhythm, sinus tachycardia, nonsustained ventricular tachycardia Chest x-ray 01/13/2020 Small bilateral pleural effusions mild cardiomegaly Cardiac troponin I 0.028, 0.031, 0.033 BNP 5190 Creatinine is 1.47Twelve-lead EKG shows sinus rhythm at 91 bpm, left ventricular hypertrophy, borderline prolonged QT interval, repolarization abnormality Transthoracic echocardiogram 01/14/2020. Left ventricular ejection fraction is severely diminished and is estimated at 20 to 25% There is moderate to severe mitral regurgitation There is mild to moderate aortic regurgitation There is moderate tricuspid regurgitation There is moderate pulmonary hypertension by echocardiogram there is no pericardial effusion Telemetry overnight shows sinus rhythm, sinus tachycardia, nonsustained ventricular tachycardia Chest x-ray 01/13/2020 Small bilateral pleural effusions mild cardiomegaly Cardiac troponin I 0.028, 0.031, 0.033 BNP 5190 Creatinine is 1.47Twelve-lead EKG shows sinus rhythm at 91 bpm, left ventricular hypertrophy, borderline prolonged QT interval, repolarization abnormality Transthoracic echocardiogram 01/14/2020. Left ventricular ejection fraction is severely diminished and is estimated at 20 to 25% There is moderate to severe mitral regurgitation There is mild to moderate aortic regurgitation There is moderate tricuspid regurgitation There is moderate pulmonary hypertension by echocardiogram there is no pericardial effusion Telemetry overnight shows sinus rhythm, sinus tachycardia, nonsustained vent ricular tachycardia Chest x-ray 01/13/2020 Small bilateral pleural effusions mild cardiomegaly Cardiac troponin I 0.028, 0.031, 0.033 BNP 5190 Creatinine is 1.47Twelve-lead EKG shows sinus rhythm at 91 bpm, left ventricular hypertrophy, borderline prolonged QT interval, repolarization abnormality Transthoracic echocardiogram 01/14/2020. Left ventricular ejection fraction is severely diminished and is estimated at 20 to 25% There is moderate to severe mitral regurgitation There is mild to moderate aortic regurgitation There is moderate tricuspid regurgitation There is moderate pulmonary hypertension by echocardiogram there is no pericardial effusion Telemetry overnight shows sinus rhythm, sinus tachycardia, nonsustained ventricular tachycardia Chest x-ray 01/13/2020 Small bilateral pleural effusions mild cardiomegaly Cardiac troponin I 0.028, 0.031, 0.033 BNP 5190 Creatinine is 1.47Twelve-lead EKG shows sinus rhythm at 91 bpm, left ventricular hypertrophy, borderline prolonged QT interval, repolarization abnormality Transthoracic echocardiogram 01/14/2020. Left ventricular ejection fraction is severely diminished and is estimated at 20 to 25% There is moderate to severe mitral regurgitation There is mild to moderate aortic regurgitation There is moderate tricuspid regurgitation There is moderate pulmonary hypertension by echocardiogram there is no pericardial effusion Telemetry overnight shows sinus rhythm, sinus tachycardia, nonsustained ventricular tachycardia Chest x-ray 01/13/2020 Small bilateral pleural effusions mild cardiomegaly Cardiac troponin I 0.028, 0.031, 0.033 BNP 5190 Creatinine is 1.47Twelve-lead EKG shows sinus rhythm at 91 bpm, left ventricular hypertrophy, borderline prolonged QT interval, repolarization abnormality Transthoracic echocardiogram 01/14/2020. Left ventricular ejection fraction is severely diminished and is estimated at 20 to 25% There is moderate to severe mitral regurgitation There is mild to moderate aortic regurgitation There is moderate tricuspid regurgitation There is moderate pulmonary hypertension by echocardiogram there is no pericardial effusion Telemetry overnight shows sinus rhythm, sinus tachycardia, nonsustained ventricular tachycardia Chest x-ray 01/13/2020 Small bilateral pleural effusions mild cardiomegaly Cardiac troponin I 0.028, 0.031, 0.033 BNP 5190 Creatinine is 1.47Twelve-lead EKG shows sinus rhythm at 91 bpm, left ventricular hypertrophy, borderline prolonged QT interval, repolarization abnormality Transthoracic echocardiogram 01/14/2020. Left ventricular ejection fraction is severely diminished and is estimated at 20 to 25% There is moderate to severe mitral regurgitation There is mild to moderate aortic regurgitation There is moderate tricuspid regurgitation There is moderate pulmonary hypertension by echocardiogram there is no pericardial effusion Telemetry overnight shows sinus rhythm, sinus tachycardia, nonsustained ventricular tachycardia Chest x-ray 01/13/2020 Small bilateral pleural effusions mild cardiomegaly Cardiac troponin I 0.028, 0.031, 0.033 BNP 5190 Creatinine is 1.47Twelve-lead EKG shows sinus rhythm at 91 bpm, left ventricular hypertrophy, borderline prolonged QT interval, repolarization abnormality Transthoracic echocardiogram 01/14/2020. Left ventricular ejection fraction is severely diminished and is estimated at 20 to 25% There is moderate to severe mitral regurgitation There is mild to moderate aortic regurgitation There is moderate tricuspid regurgitation There is moderate pulmonary hypertension by echocardiogram there is no per icardial effusion Telemetry overnight shows sinus rhythm, sinus tachycardia, nonsustained ventricular tachycardia Chest x-ray 01/13/2020 Small bilateral pleural effusions mild cardiomegaly Cardiac troponin I 0.028, 0.031, 0.033 BNP 5190 Creatinine is 1.47Twelve-lead EKG shows sinus rhythm at 91 bpm, left ventricular hypertrophy, borderline prolonged QT interval, repolarization abnormality Transthoracic echocardiogram 01/14/2020. Left ventricular ejection fraction is severely diminished and is estimated at 20 to 25% There is moderate to severe mitral regurgitation There is mild to moderate aortic regurgitation There is moderate tricuspid regurgitation There is moderate pulmonary hypertension by echocardiogram there is no pericardial effusion Telemetry overnight shows sinus rhythm, sinus tachycardia, nonsustained ventricular tachycardia Chest x-ray 01/13/2020 Small bilateral pleural effusions mild cardiomegaly Cardiac troponin I 0.028, 0.031, 0.033 BNP 5190 Creatinine is 1.47Twelve-lead EKG shows sinus rhythm at 91 bpm, left ventricular hypertrophy, borderline prolonged QT interval, repolarization abnormality Transthoracic echocardiogram 01/14/2020. Left ventricular ejection fraction is severely diminished and is estimated at 20 to 25% There is moderate to severe mitral regurgitation There is mild to moderate aortic regurgitation There is moderate tricuspid regurgitation There is moderate pulmonary hypertension by echocardiogram there is no pericardial effusion Telemetry overnight shows sinus rhythm, sinus tachycardia, nonsustained ventricular tachycardia Chest x-ray 01/13/2020 Small bilateral pleural effusions mild cardiomegaly Cardiac troponin I 0.028, 0.031, 0.033 BNP 5190 Creatinine is 1.47Twelve-lead EKG shows sinus rhythm at 91 bpm, left ventricular hypertrophy, borderline prolonged QT interval, repolarization abnormality Transthoracic echocardiogram 01/14/2020. Left ventricular ejection fraction is severely diminished and is estimated at 20 to 25% There is moderate to severe mitral regurgitation There is mild to moderate aortic regurgitation There is moderate tricuspid regurgitation There is moderate pulmonary hypertension by echocardiogram there is no pericardial effusion Telemetry overnight shows sinus rhythm, sinus tachycardia, nonsustained ventricular tachycardia Chest x-ray 01/13/2020 Small bilateral pleural effusions mild cardiomegaly Cardiac troponin I 0.028, 0.031, 0.033 BNP 5190 Creatinine is 1.47Twelve-lead EKG shows sinus rhythm at 91 bpm, left ventricular hypertrophy, borderline prolonged QT interval, repolarization abnormality Transthoracic echocardiogram 01/14/2020. Left ventricular ejection fraction is severely diminished and is estimated at 20 to 25% There is moderate to severe mitral regurgitation There is mild to moderate aortic regurgitation There is moderate tricuspid regurgitation There is moderate pulmonary hypertension by echocardiogram there is no pericardial effusion Telemetry overnight shows sinus rhythm, sinus tachycardia, nonsustained ventricular tachycardia Chest x-ray 01/13/2020 Small bilateral pleural effusions mild cardiomegaly Cardiac troponin I 0.028, 0.031, 0.033 BNP 5190 Creatinine is 1.47Twelve-lead EKG shows sinus rhythm at 91 bpm, left ventricular hypertrophy, borderline prolonged QT interval, repolarization abnormality Transthoracic echocardiogram 01/14/2020. Left ventricular ejection fraction is severely diminished and is estimated at 20 to 25% There is moderate to severe mitral regurgitation There is mild to moderate aortic regurgitation There is moderate tricuspid regurgitation There is moderate pulmonary hypertension by echocardiogram there is no pericard ial effusion Telemetry overnight shows sinus rhythm, sinus tachycardia, nonsustained ventricular tachycardia Chest x-ray 01/13/2020 Small bilateral pleural effusions mild cardiomegaly Cardiac troponin I 0.028, 0.031, 0.033 BNP 5190 Creatinine is 1.47Twelve-lead EKG shows sinus rhythm at 91 bpm, left ventricular hypertrophy, borderline prolonged QT interval, repolarization abnormality Transthoracic echocardiogram 01/14/2020. Left ventricular ejection fraction is severely diminished and is estimated at 20 to 25% There is moderate to severe mitral regurgitation There is mild to moderate aortic regurgitation There is moderate tricuspid regurgitation There is moderate pulmonary hypertension by echocardiogram there is no pericardial effusion Telemetry overnight shows sinus rhythm, sinus tachycardia, nonsustained ventricular tachycardia Chest x-ray 01/13/2020 Small bilateral pleural effusions mild cardiomegaly Cardiac troponin I 0.028, 0.031, 0.033 BNP 5190 Creatinine is 1.47Twelve-lead EKG shows sinus rhythm at 91 bpm, left ventricular hypertrophy, borderline prolonged QT interval, repolarization abnormality Transthoracic echocardiogram 01/14/2020. Left ventricular ejection fraction is severely diminished and is estimated at 20 to 25% There is moderate to severe mitral regurgitation There is mild to moderate aortic regurgitation There is moderate tricuspid regurgitation There is moderate pulmonary hypertension by echocardiogram there is no pericardial effusion Telemetry overnight shows sinus rhythm, sinus tachycardia, nonsustained ventricular tachycardia Chest x-ray 01/13/2020 Small bilateral pleural effusions mild cardiomegaly Cardiac troponin I 0.028, 0.031, 0.033 BNP 5190 Creatinine is 1.47Twelve-lead EKG shows sinus rhythm at 91 bpm, left ventricular hypertrophy, borderline prolonged QT interval, repolarization abnormality Transthoracic echocardiogram 01/14/2020. Left ventricular ejection fraction is severely diminished and is estimated at 20 to 25% There is moderate to severe mitral regurgitation There is mild to moderate aortic regurgitation There is moderate tricuspid regurgitation There is moderate pulmonary hypertension by echocardiogram there is no pericardial effusion Telemetry overnight shows sinus rhythm, sinus tachycardia, nonsustained ventricular tachycardia Chest x-ray 01/13/2020 Small bilateral pleural effusions mild cardiomegaly Cardiac troponin I 0.028, 0.031, 0.033 BNP 5190 Creatinine is 1.47Twelve-lead EKG shows sinus rhythm at 91 bpm, left ventricular hypertrophy, borderline prolonged QT interval, repolarization abnormality Transthoracic echocardiogram 01/14/2020. Left ventricular ejection fraction is severely diminished and is estimated at 20 to 25% There is moderate to severe mitral regurgitation There is mild to moderate aortic regurgitation There is moderate tricuspid regurgitation There is moderate pulmonary hypertension by echocardiogram there is no pericardial effusion Telemetry overnight shows sinus rhythm, sinus tachycardia, nonsustained ventricular tachycardia Chest x-ray 01/13/2020 Small bilateral pleural effusions mild cardiomegaly Cardiac troponin I 0.028, 0.031, 0.033 BNP 5190 Creatinine is 1.47Twelve-lead EKG shows sinus rhythm at 91 bpm, left ventricular hypertrophy, borderline prolonged QT interval, repolarization abnormality Transthoracic echocardiogram 01/14/2020. Left ventricular ejection fraction is severely diminished and is estimated at 20 to 25% There is moderate to severe mitral regurgitation There is mild to moderate aortic regurgitation There is moderate tricuspid regurgitation There is moderate pulmonary hypertension by echocardiogram there is no pericardial effusion Telemetry overnight shows sinus rhythm, sinus tachycardia, nonsustained ventricular tachycardia Chest x-ray 01/13/2020 Small bilateral pleural effusions mild cardiomegaly Cardiac troponin I 0.028, 0.031, 0.033 BNP 5190 Creatinine is 1.47Twelve-lead EKG shows sinus rhythm at 91 bpm, left ventricular hypertrophy, borderline prolonged QT interval, repolarization abnormality Transthoracic echocardiogram 01/14/2020. Left ventricular ejection fraction is severely diminished and is estimated at 20 to 25% There is moderate to severe mitral regurgitation There is mild to moderate aortic regurgitation There is moderate tricuspid regurgitation There is moderate pulmonary hypertension by echocardiogram there is no pericardial effusion Telemetry overnight shows sinus rhythm, sinus tachycardia, nonsustained ventricular tachycardia Chest x-ray 01/13/2020 Small bilateral pleural effusions mild cardiomegaly Cardiac troponin I 0.028, 0.031, 0.033 BNP 5190 Creatinine is 1.47Twelve-lead EKG shows sinus rhythm at 91 bpm, left ventricular hypertrophy, borderline prolonged QT interval, repolarization abnormality Transthoracic echocardiogram 01/14/2020. Left ventricular ejection fraction is severely diminished and is estimated at 20 to 25% There is moderate to severe mitral regurgitation There is mild to moderate aortic regurgitation There is moderate tricuspid regurgitation There is moderate pulmonary hypertension by echocardiogram there is no pericardial effusion Telemetry overnight shows sinus rhythm, sinus tachycardia, nonsustained ventricular tachycardia Chest x-ray 01/13/2020 Small bilateral pleural effusions mild cardiomegaly Cardiac troponin I 0.028, 0.031, 0.033 BNP 5190 Creatinine is 1.47Twelve-lead EKG shows sinus rhythm at 91 bpm, left ventricular hypertrophy, borderline prolonged QT interval, repolarization abnormality Transthoracic echocardiogram 01/14/2020. Left ventricular ejection fraction is severely diminished and is estimated at 20 to 25% There is moderate to severe mitral regurgitation There is mild to moderate aortic regurgitation There is moderate tricuspid regurgitation There is moderate pulmonary hypertension by echocardiogram there is no pericardial effusion Telemetry overnight shows sinus rhythm, sinus tachycardia, nonsustained ve ntricular tachycardia Chest x-ray 01/13/2020 Small bilateral pleural effusions mild cardiomegaly Cardiac troponin I 0.028, 0.031, 0.033 BNP 5190 Creatinine is 1.47Twelve-lead EKG shows sinus rhythm at 91 bpm, left ventricular hypertrophy, borderline prolonged QT interval, repolarization abnormality Transthoracic echocardiogram 01/14/2020. Left ventricular ejection fraction is severely diminished and is estimated at 20 to 25% There is moderate to severe mitral regurgitation There is mild to moderate aortic regurgitation There is moderate tricuspid regurgitation There is moderate pulmonary hypertension by echocardiogram there is no pericardial effusion Telemetry overnight shows sinus rhythm, sinus tachycardia, nonsustained ventricular tachycardia Chest x-ray 01/13/2020 Small bilateral pleural effusions mild cardiomegaly Cardiac troponin I 0.028, 0.031, 0.033 BNP 5190 Creatinine is 1.47Twelve-lead EKG shows sinus rhythm at 91 bpm, left ventricular hypertrophy, borderline prolonged QT interval, repolarization abnormality Transthoracic echocardiogram 01/14/2020. Left ventricular ejection fraction is severely diminished and is estimated at 20 to 25% There is moderate to severe mitral regurgitation There is mild to moderate aortic regurgitation There is moderate tricuspid regurgitation There is moderate pulmonary hypertension by echocardiogram there is no pericardial effusion Telemetry overnight shows sinus rhythm, sinus tachycardia, nonsustained ventricular tachycardia Chest x-ray 01/13/2020 Small bilateral pleural effusions mild cardiomegaly Cardiac troponin I 0.028, 0.031, 0.033 BNP 5190 Creatinine is 1.47Twelve-lead EKG shows sinus rhythm at 91 bpm, left ventricular hypertrophy, borderline prolonged QT interval, repolarization abnormality Transthoracic echocardiogram 01/14/2020. Left ventricular ejection fraction is severely diminished and is estimated at 20 to 25% There is moderate to severe mitral regurgitation There is mild to moderate aortic regurgitation There is moderate tricuspid regurgitation There is moderate pulmonary hypertension by echocardiogram there is no pericardial effusion Telemetry overnight shows sinus rhythm, sinus tachycardia, nonsustained ventricular tachycardia Chest x-ray 01/13/2020 Small bilateral pleural effusions mild cardiomegaly Cardiac troponin I 0.028, 0.031, 0.033 BNP 5190 Creatinine is 1.47Twelve-lead EKG shows sinus rhythm at 91 bpm, left ventricular hypertrophy, borderline prolonged QT interval, repolarization abnormality Transthoracic echocardiogram 01/14/2020. Left ventricular ejection fraction is severely diminished and is estimated at 20 to 25% There is moderate to severe mitral regurgitation There is mild to moderate aortic regurgitation There is moderate tricuspid regurgitation There is moderate pulmonary hypertension by echocardiogram there is no pericardial effusion Telemetry overnight shows sinus rhythm, sinus tachycardia, nonsustained ventricular tachycardia Chest x-ray 01/13/2020 Small bilateral pleural effusions mild cardiomegaly Cardiac troponin I 0.028, 0.031, 0.033 BNP 5190 Creatinine is 1.47Twelve-lead EKG shows sinus rhythm at 91 bpm, left ventricular hypertrophy, borderline prolonged QT interval, repolarization abnormality Transthoracic echocardiogram 01/14/2020. Left ventricular ejection fraction is severely diminished and is estimated at 20 to 25% There is moderate to severe mitral regurgitation There is mild to moderate aortic regurgitation There is moderate tricuspid regurgitation There is moderate pulmonary hypertension by echocardiogram there is no p ericardial effusion Telemetry overnight shows sinus rhythm, sinus tachycardia, nonsustained ventric ular tachycardia Chest x-ray 01/13/2020 Small bilateral pleural effusions mild cardiomegaly Cardiac troponin I 0.028, 0.031, 0.033 BNP 5190 Creatinine is 1.47Twelve-lead EKG shows sinus rhythm at 91 bpm, left ventricular hypertrophy, borderline prolonged QT interval, repolarization abnormality Transthoracic echocardiogram 01/14/2020. Left ventricular ejection fraction is severely diminished and is estimated at 20 to 25% There is moderate to severe mitral regurgitation There is mild to moderate aortic regurgitation There is moderate tricuspid regurgitation There is moderate pulmonary hypertension by echocardiogram there is no pericardial effusion Telemetry overnight shows sinus rhythm, sinus tachycardia, nonsustained ventricular tachycardia Chest x-ray 01/13/2020 Small bilateral pleural effusions mild cardiomegaly Cardiac troponin I 0.028, 0.031, 0.033 BNP 5190 Creatinine is 1.47Twelve-lead EKG shows sinus rhythm at 91 bpm, left ventricular hypertrophy, borderline prolonged QT interval, repolarization abnormality Transthoracic echocardiogram 01/14/2020. Left ventricular ejection fraction is severely diminished and is estimated at 20 to 25% There is moderate to severe mitral regurgitation There is mild to moderate aortic regurgitation There is moderate tricuspid regurgitation There is moderate pulmonary hypertension by echocardiogram there is no pericardial effusion Telemetry overnight shows sinus rhythm, sinus tachycardia, nonsustained ventricular tachycardia Chest x-ray 01/13/2020 Small bilateral pleural effusions mild cardiomegaly Cardiac troponin I 0.028, 0.031, 0.033 BNP 5190 Creatinine is 1.47Twelve-lead EKG shows sinus rhythm at 91 bpm, left ventricular hypertrophy, borderline prolonged QT interval, repolarization abnormality Transthoracic echocardiogram 01/14/2020. Left ventricular ejection fraction is severely diminished and is estimated at 20 to 25% There is moderate to severe mitral regurgitation There is mild to moderate aortic regurgitation There is moderate tricuspid regurgitation There is moderate pulmonary hypertension by echocardiogram there is no pericardial effusion Telemetry overnight shows sinus rhythm, sinus tachycardia, nonsustained ventricular tachycardia Chest x-ray 01/13/2020 Small bilateral pleural effusions mild cardiomegaly Cardiac troponin I 0.028, 0.031, 0.033 BNP 5190 Creatinine is 1.47Twelve-lead EKG shows sinus rhythm at 91 bpm, left ventricular hypertrophy, borderline prolonged QT interval, repolarization abnormality Transthoracic echocardiogram 01/14/2020. Left ventricular ejection fraction is severely diminished and is estimated at 20 to 25% There is moderate to severe mitral regurgitation There is mild to moderate aortic regurgitation There is moderate tricuspid regurgitation There is moderate pulmonary hypertension by echocardiogram there is no pericardial effusion Telemetry overnight shows sinus rhythm, sinus tachycardia, nonsustained ventricular tachycardia Chest x-ray 01/13/2020 Small bilateral pleural effusions mild cardiomegaly Cardiac troponin I 0.028, 0.031, 0.033 BNP 5190 Creatinine is 1.47Twelve-lead EKG shows sinus rhythm at 91 bpm, left ventricular hypertrophy, borderline prolonged QT interval, repolarization abnormality Transthoracic echocardiogram 01/14/2020. Left ventricular ejection fraction is severely diminished and is estimated at 20 to 25% There is moderate to severe mitral regurgitation There is mild to moderate aortic regurgitation There is moderate tricuspid regurgitation There is moderate pulmonary hypertension by echocardiogram there is no perica rdial effusion Telemetry overnight shows sinus rhythm, sinus tachycardia, nonsustained ventricular tachycardia Chest x-ray 01/13/2020 Small bilateral pleural effusions mild cardiomegaly Cardiac troponin I 0.028, 0.031, 0.033 BNP 5190 Creatinine is 1.47Twelve-lead EKG shows sinus rhythm at 91 bpm, left ventricular hypertrophy, borderline prolonged QT interval, repolarization abnormality Transthoracic echocardiogram 01/14/2020. Left ventricular ejection fraction is severely diminished and is estimated at 20 to 25% There is moderate to severe mitral regurgitation There is mild to moderate aortic regurgitation There is moderate tricuspid regurgitation There is moderate pulmonary hypertension by echocardiogram there is no pericardial effusion Telemetry overnight shows sinus rhythm, sinus tachycardia, nonsustained ventricular tachycardia Chest x-ray 01/13/2020 Small bilateral pleural effusions mild cardiomegaly Cardiac troponin I 0.028, 0.031, 0.033 BNP 5190 Creatinine is 1.47Twelve-lead EKG shows sinus rhythm at 91 bpm, left ventricular hypertrophy, borderline prolonged QT interval, repolarization abnormality Transthoracic echocardiogram 01/14/2020. Left ventricular ejection fraction is severely diminished and is estimated at 20 to 25% There is moderate to severe mitral regurgitation There is mild to moderate aortic regurgitation There is moderate tricuspid regurgitation There is moderate pulmonary hypertension by echocardiogram there is no pericardial effusion Telemetry overnight shows sinus rhythm, sinus tachycardia, nonsustained ventricular tachycardia Chest x-ray 01/13/2020 Small bilateral pleural effusions mild cardiomegaly Cardiac troponin I 0.028, 0.031, 0.033 BNP 5190 Creatinine is 1.47Twelve-lead EKG shows sinus rhythm at 91 bpm, left ventricular hypertrophy, borderline prolonged QT interval, repolarization abnormality Transthoracic echocardiogram 01/14/2020. Left ventricular ejection fraction is severely diminished and is estimated at 20 to 25% There is moderate to severe mitral regurgitation There is mild to moderate aortic regurgitation There is moderate tricuspid regurgitation There is moderate pulmonary hypertension by echocardiogram there is no pericardial effusion Telemetry overnight shows sinus rhythm, sinus tachycardia, nonsustained ventricular tachycardia Chest x-ray 01/13/2020 Small bilateral pleural effusions mild cardiomegaly Cardiac troponin I 0.028, 0.031, 0.033 BNP 5190 Creatinine is 1.47Twelve-lead EKG shows sinus rhythm at 91 bpm, left ventricular hypertrophy, borderline prolonged QT interval, repolarization abnormality Transthoracic echocardiogram 01/14/2020. Left ventricular ejection fraction is severely diminished and is estimated at 20 to 25% There is moderate to severe mitral regurgitation There is mild to moderate aortic regurgitation There is moderate tricuspid regurgitation There is moderate pulmonary hypertension by echocardiogram there is no pericardial effusion Telemetry overnight shows sinus rhythm, sinus tachycardia, nonsustained ventricular tachycardia Chest x-ray 01/13/2020 Small bilateral pleural effusions mild cardiomegaly Cardiac troponin I 0.028, 0.031, 0.033 BNP 5190 Creatinine is 1.47Twelve-lead EKG shows sinus rhythm at 91 bpm, left ventricular hypertrophy, borderline prolonged QT interval, repolarization abnormality Transthoracic echocardiogram 01/14/2020. Left ventricular ejection fraction is severely diminished and is estimated at 20 to 25% There is moderate to severe mitral regurgitation There is mild to moderate aortic regurgitation There is moderate tricuspid regurgitation There is moderate pulmonary hypertension by echocardiogram there is no pericardial effusion Telemetry overnight shows sinus rhythm, sinus tachycardia, nonsustained ventricular tachycardia Chest x-ray 01/13/2020 Small bilateral pleural effusions mild cardiomegaly Cardiac troponin I 0.028, 0.031, 0.033 BNP 5190 Creatinine is 1.47Twelve-lead EKG shows sinus rhythm at 91 bpm, left ventricular hypertrophy, borderline prolonged QT interval, repolarization abnormality Transthoracic echocardiogram 01/14/2020. Left ventricular ejection fraction is severely diminished and is estimated at 20 to 25% There is moderate to severe mitral regurgitation There is mild to moderate aortic regurgitation There is moderate tricuspid regurgitation There is moderate pulmonary hypertension by echocardiogram there is no pericardial effusion Telemetry overnight shows sinus rhythm, sinus tachycardia, nonsustained ventricular tachycardia Chest x-ray 01/13/2020 Small bilateral pleural effusions mild cardiomegaly Cardiac troponin I 0.028, 0.031, 0.033 BNP 5190 Creatinine is 1.47Twelve-lead EKG shows sinus rhythm at 91 bpm, left ventricular hypertrophy, borderline prolonged QT interval, repolarization abnormality Transthoracic echocardiogram 01/14/2020. Left ventricular ejection fraction is severely diminished and is estimated at 20 to 25% There is moderate to severe mitral regurgitation There is mild to moderate aortic regurgitation There is moderate tricuspid regurgitation There is moderate pulmonary hypertension by echocardiogram there is no pericardial effusion Telemetry overnight shows sinus rhythm, sinus tachycardia, nonsustained ventricular tachycardia Chest x-ray 01/13/2020 Small bilateral pleural effusions mild cardiomegaly Cardiac troponin I 0.028, 0.031, 0.033 BNP 5190 Creatinine is 1.47Twelve-lead EKG shows sinus rhythm at 91 bpm, left ventricular hypertrophy, borderline prolonged QT interval, repolarization abnormality Transthoracic echocardiogram 01/14/2020. Left ventricular ejection fraction is severely diminished and is estimated at 20 to 25% There is moderate to severe mitral regurgitation There is mild to moderate aortic regurgitation There is moderate tricuspid regurgitation There is moderate pulmonary hypertension by echocardiogram there is no pericardial effusion Telemetry overnight shows sinus rhythm, sinus tachycardia, nonsustained ventricular tachycardia Chest x-ray 01/13/2020 Small bilateral pleural effusions mild cardiomegaly Cardiac troponin I 0.028, 0.031, 0.033 BNP 5190 Creatinine is 1.47Twelve-lead EKG shows sinus rhythm at 91 bpm, left ventricular hypertrophy, borderline prolonged QT interval, repolarization abnormality Transthoracic echocardiogram 01/14/2020. Left ventricular ejection fraction is severely diminished and is estimated at 20 to 25% There is moderate to severe mitral regurgitation There is mild to moderate aortic regurgitation There is moderate tricuspid regurgitation There is moderate pulmonary hypertension by echocardiogram there is no pericardial effusion Telemetry overnight shows sinus rhythm, sinus tachycardia, nonsustained ventricular tachycardia Chest x-ray 01/13/2020 Small bilateral pleural effusions mild cardiomegaly Cardiac troponin I 0.028, 0.031, 0.033 BNP 5190 Creatinine is 1.47Twelve-lead EKG shows sinus rhythm at 91 bpm, left ventricular hypertrophy, borderline prolonged QT interval, repolarization abnormality Transthoracic echocardiogram 01/14/2020. Left ventricular ejection fraction is severely diminished and is estimated at 20 to 25% There is moderate to severe mitral regurgitation There is mild to moderate aortic regurgitation There is moderate tricuspid regurgitation There is moderate pulmonary hypertension by echocardiogram there is no pericardial effusion Telemetry overnight shows sinus rhythm, sinus tachycardia, nonsustained ventricular tachycardia Chest x-ray 01/13/2020 Small bilateral pleural effusions mild cardiomegaly Cardiac troponin I 0.028, 0.031, 0.033 BNP 5190 Creatinine is 1.47Twelve-lead EKG shows sinus rhythm at 91 bpm, left ventricular hypertrophy, borderline prolonged QT interval, repolarization abnormality Transthoracic echocardiogram 01/14/2020. Left ventricular ejection fraction is severely diminished and is estimated at 20 to 25% There is moderate to severe mitral regurgitation There is mild to moderate aortic regurgitation There is moderate tricuspid regurgitation There is moderate pulmonary hypertension by echocardiogram there is no pericardial effusion Telemetry overnight shows sinus rhythm, sinus tachycardia, nonsustained ventricular tachycardia Chest x-ray 01/13/2020 Small bilateral pleural effusions mild cardiomegaly Cardiac troponin I 0.028, 0.031, 0.033 BNP 5190 Creatinine is 1.47Twelve-lead EKG shows sinus rhythm at 91 bpm, left ventricular hypertrophy, borderline prolonged QT interval, repolarization abnormality Transthoracic echocardiogram 01/14/2020. Left ventricular ejection fraction is severely diminished and is estimated at 20 to 25% There is moderate to severe mitral regurgitation There is mild to moderate aortic regurgitation There is moderate tricuspid regurgitation There is moderate pulmonary hypertension by echocardiogram there is no pericardial effusion Telemetry overnight shows sinus rhythm, sinus tachycardia, nonsustained ventricular tachycardia Chest x-ray 01/13/2020 Small bilateral pleural effusions mild cardiomegaly Cardiac troponin I 0.028, 0.031, 0.033 BNP 5190 Creatinine is 1.47Twelve-lead EKG shows sinus rhythm at 91 bpm, left ventricular hypertrophy, borderline prolonged QT interval, repolarization abnormality Transthoracic echocardiogram 01/14/2020. Left ventricular ejection fraction is severely diminished and is estimated at 20 to 25% There is moderate to severe mitral regurgitation There is mild to moderate aortic regurgitation There is moderate tricuspid regurgitation There is moderate pulmonary hypertension by echocardiogram there is no pericardial effusion Telemetry overnight shows sinus rhythm, sinus tachycardia, nonsustained ventr icular tachycardia Chest x-ray 01/13/2020 Small bilateral pleural effusions mild cardiomegaly Cardiac troponin I 0.028, 0.031, 0.033 BNP 5190 Creatinine is 1.47Twelve-lead EKG shows sinus rhythm at 91 bpm, left ventricular hypertrophy, borderline prolonged QT interval, repolarization abnormality Transthoracic echocardiogram 01/14/2020. Left ventricular ejection fraction is severely diminished and is estimated at 20 to 25% There is moderate to severe mitral regurgitation There is mild to moderate aortic regurgitation There is moderate tricuspid regurgitation There is moderate pulmonary hypertension by echocardiogram there is no pericardial effusion Telemetry overnight shows sinus rhythm, sinus tachycardia, nonsustained ventricular tachycardia Chest x-ray 01/13/2020 Small bilateral pleural effusions mild cardiomegaly Cardiac troponin I 0.028, 0.031, 0.033 BNP 5190 Creatinine is 1.47Twelve-lead EKG shows sinus rhythm at 91 bpm, left ventricular hypertrophy, borderline prolonged QT interval, repolarization abnormality Transthoracic echocardiogram 01/14/2020. Left ventricular ejection fraction is severely diminished and is estimated at 20 to 25% There is moderate to severe mitral regurgitation There is mild to moderate aortic regurgitation There is moderate tricuspid regurgitation There is moderate pulmonary hypertension by echocardiogram there is no pericardial effusion Telemetry overnight shows sinus rhythm, sinus tachycardia, nonsustained ventricular tachycardia Chest x-ray 01/13/2020 Small bilateral pleural effusions mild cardiomegaly Cardiac troponin I 0.028, 0.031, 0.033 BNP 5190 Creatinine is 1.47Twelve-lead EKG shows sinus rhythm at 91 bpm, left ventricular hypertrophy, borderline prolonged QT interval, repolarization abnormality Transthoracic echocardiogram 01/14/2020. Left ventricular ejection fraction is severely diminished and is estimated at 20 to 25% There is moderate to severe mitral regurgitation There is mild to moderate aortic regurgitation There is moderate tricuspid regurgitation There is moderate pulmonary hypertension by echocardiogram there is no pericardial effusion Telemetry overnight shows sinus rhythm, sinus tachycardia, nonsustained ventricular tachycardia Chest x-ray 01/13/2020 Small bilateral pleural effusions mild cardiomegaly Cardiac troponin I 0.028, 0.031, 0.033 BNP 5190 Creatinine is 1.47Twelve-lead EKG shows sinus rhythm at 91 bpm, left ventricular hypertrophy, borderline prolonged QT interval, repolarization abnormality Transthoracic echocardiogram 01/14/2020. Left ventricular ejection fraction is severely diminished and is estimated at 20 to 25% There is moderate to severe mitral regurgitation There is mild to moderate aortic regurgitation There is moderate tricuspid regurgitation There is moderate pulmonary hypertension by echocardiogram there is no pericardial effusion Telemetry overnight shows sinus rhythm, sinus tachycardia, nonsustained ventricular tachycardia Chest x-ray 01/13/2020 Small bilateral pleural effusions mild cardiomegaly Cardiac troponin I 0.028, 0.031, 0.033 BNP 5190 Creatinine is 1.47Twelve-lead EKG shows sinus rhythm at 91 bpm, left ventricular hypertrophy, borderline prolonged QT interval, repolarization abnormality Transthoracic echocardiogram 01/14/2020. Left ventricular ejection fraction is severely diminished and is estimated at 20 to 25% There is moderate to severe mitral regurgitation There is mild to moderate aortic regurgitation There is moderate tricuspid regurgitation There is moderate pulmonary hypertension by echocardiogram there is no reagan cardial effusion Telemetry overnight shows sinus rhythm, sinus tachycardia, nonsustained ventricular tachycardia Chest x-ray 01/13/2020 Small bilateral pleural effusions mild cardiomegaly Cardiac troponin I 0.028, 0.031, 0.033 BNP 5190 Creatinine is 1.47Twelve-lead EKG shows sinus rhythm at 91 bpm, left ventricular hypertrophy, borderline prolonged QT interval, repolarization abnormality Transthoracic echocardiogram 01/14/2020. Left ventricular ejection fraction is severely diminished and is estimated at 20 to 25% There is moderate to severe mitral regurgitation There is mild to moderate aortic regurgitation There is moderate tricuspid regurgitation There is moderate pulmonary hypertension by echocardiogram there is no pericardial effusion Telemetry overnight shows sinus rhythm, sinus tachycardia, nonsustained ventricular tachycardia Chest x-ray 01/13/2020 Small bilateral pleural effusions mild cardiomegaly Cardiac troponin I 0.028, 0.031, 0.033 BNP 5190 Creatinine is 1.47Twelve-lead EKG shows sinus rhythm at 91 bpm, left ventricular hypertrophy, borderline prolonged QT interval, repolarization abnormality Transthoracic echocardiogram 01/14/2020. Left ventricular ejection fraction is severely diminished and is estimated at 20 to 25% There is moderate to severe mitral regurgitation There is mild to moderate aortic regurgitation There is moderate tricuspid regurgitation There is moderate pulmonary hypertension by echocardiogram there is no pericardial effusion Telemetry overnight shows sinus rhythm, sinus tachycardia, nonsustained ventricular tachycardia Chest x-ray 01/13/2020 Small bilateral pleural effusions mild cardiomegaly Cardiac troponin I 0.028, 0.031, 0.033 BNP 5190 Creatinine is 1.47Twelve-lead EKG shows sinus rhythm at 91 bpm, left ventricular hypertrophy, borderline prolonged QT interval, repolarization abnormality Transthoracic echocardiogram 01/14/2020. Left ventricular ejection fraction is severely diminished and is estimated at 20 to 25% There is moderate to severe mitral regurgitation There is mild to moderate aortic regurgitation There is moderate tricuspid regurgitation There is moderate pulmonary hypertension by echocardiogram there is no pericardial effusion Telemetry overnight shows sinus rhythm, sinus tachycardia, nonsustained ventricular tachycardia Chest x-ray 01/13/2020 Small bilateral pleural effusions mild cardiomegaly Cardiac troponin I 0.028, 0.031, 0.033 BNP 5190 Creatinine is 1.47Twelve-lead EKG shows sinus rhythm at 91 bpm, left ventricular hypertrophy, borderline prolonged QT interval, repolarization abnormality Transthoracic echocardiogram 01/14/2020. Left ventricular ejection fraction is severely diminished and is estimated at 20 to 25% There is moderate to severe mitral regurgitation There is mild to moderate aortic regurgitation There is moderate tricuspid regurgitation There is moderate pulmonary hypertension by echocardiogram there is no pericardial effusion Telemetry overnight shows sinus rhythm, sinus tachycardia, nonsustained ventricular tachycardia Chest x-ray 01/13/2020 Small bilateral pleural effusions mild cardiomegaly Cardiac troponin I 0.028, 0.031, 0.033 BNP 5190 Creatinine is 1.47Twelve-lead EKG shows sinus rhythm at 91 bpm, left ventricular hypertrophy, borderline prolonged QT interval, repolarization abnormality Transthoracic echocardiogram 01/14/2020. Left ventricular ejection fraction is severely diminished and is estimated at 20 to 25% There is moderate to severe mitral regurgitation There is mild to moderate aortic regurgitation There is moderate tricuspid regurgitation There is moderate pulmonary hypertension by echocardiogram there is no pericardi al effusion Telemetry overnight shows sinus rhythm, sinus tachycardia, nonsustained ventricular tachycardia Chest x-ray 01/13/2020 Small bilateral pleural effusions mild cardiomegaly Cardiac troponin I 0.028, 0.031, 0.033 BNP 5190 Creatinine is 1.47Twelve-lead EKG shows sinus rhythm at 91 bpm, left ventricular hypertrophy, borderline prolonged QT interval, repolarization abnormality Transthoracic echocardiogram 01/14/2020. Left ventricular ejection fraction is severely diminished and is estimated at 20 to 25% There is moderate to severe mitral regurgitation There is mild to moderate aortic regurgitation There is moderate tricuspid regurgitation There is moderate pulmonary hypertension by echocardiogram there is no pericardial effusion Telemetry overnight shows sinus rhythm, sinus tachycardia, nonsustained ventricular tachycardia Chest x-ray 01/13/2020 Small bilateral pleural effusions mild cardiomegaly Cardiac troponin I 0.028, 0.031, 0.033 BNP 5190 Creatinine is 1.47Twelve-lead EKG shows sinus rhythm at 91 bpm, left ventricular hypertrophy, borderline prolonged QT interval, repolarization abnormality Transthoracic echocardiogram 01/14/2020. Left ventricular ejection fraction is severely diminished and is estimated at 20 to 25% There is moderate to severe mitral regurgitation There is mild to moderate aortic regurgitation There is moderate tricuspid regurgitation There is moderate pulmonary hypertension by echocardiogram there is no pericardial effusion Telemetry overnight shows sinus rhythm, sinus tachycardia, nonsustained ventricular tachycardia Chest x-ray 01/13/2020 Small bilateral pleural effusions mild cardiomegaly Cardiac troponin I 0.028, 0.031, 0.033 BNP 5190 Creatinine is 1.47Twelve-lead EKG shows sinus rhythm at 91 bpm, left ventricular hypertrophy, borderline prolonged QT interval, repolarization abnormality Transthoracic echocardiogram 01/14/2020. Left ventricular ejection fraction is severely diminished and is estimated at 20 to 25% There is moderate to severe mitral regurgitation There is mild to moderate aortic regurgitation There is moderate tricuspid regurgitation There is moderate pulmonary hypertension by echocardiogram there is no pericardial effusion Telemetry overnight shows sinus rhythm, sinus tachycardia, nonsustained ventricular tachycardia Chest x-ray 01/13/2020 Small bilateral pleural effusions mild cardiomegaly Cardiac troponin I 0.028, 0.031, 0.033 BNP 5190 Creatinine is 1.47Twelve-lead EKG shows sinus rhythm at 91 bpm, left ventricular hypertrophy, borderline prolonged QT interval, repolarization abnormality Transthoracic echocardiogram 01/14/2020. Left ventricular ejection fraction is severely diminished and is estimated at 20 to 25% There is moderate to severe mitral regurgitation There is mild to moderate aortic regurgitation There is moderate tricuspid regurgitation There is moderate pulmonary hypertension by echocardiogram there is no pericardial effusion Telemetry overnight shows sinus rhythm, sinus tachycardia, nonsustained ventricular tachycardia Chest x-ray 01/13/2020 Small bilateral pleural effusions mild cardiomegaly Cardiac troponin I 0.028, 0.031, 0.033 BNP 5190 Creatinine is 1.47Twelve-lead EKG shows sinus rhythm at 91 bpm, left ventricular hypertrophy, borderline prolonged QT interval, repolarization abnormality Transthoracic echocardiogram 01/14/2020. Left ventricular ejection fraction is severely diminished and is estimated at 20 to 25% There is moderate to severe mitral regurgitation There is mild to moderate aortic regurgitation There is moderate tricuspid regurgitation There is moderate pulmonary hypertension by echocardiogram there is no pericardial effusion Telemetry overnight shows sinus rhythm, sinus tachycardia, nonsustained ventricular tachycardia Chest x-ray 01/13/2020 Small bilateral pleural effusions mild cardiomegaly Cardiac troponin I 0.028, 0.031, 0.033 BNP 5190 Creatinine is 1.47Twelve-lead EKG shows sinus rhythm at 91 bpm, left ventricular hypertrophy, borderline prolonged QT interval, repolarization abnormality Transthoracic echocardiogram 01/14/2020. Left ventricular ejection fraction is severely diminished and is estimated at 20 to 25% There is moderate to severe mitral regurgitation There is mild to moderate aortic regurgitation There is moderate tricuspid regurgitation There is moderate pulmonary hypertension by echocardiogram there is no pericardial effusion Telemetry overnight shows sinus rhythm, sinus tachycardia, nonsustained ventricular tachycardia Chest x-ray 01/13/2020 Small bilateral pleural effusions mild cardiomegaly Cardiac troponin I 0.028, 0.031, 0.033 BNP 5190 Creatinine is 1.47Twelve-lead EKG shows sinus rhythm at 91 bpm, left ventricular hypertrophy, borderline prolonged QT interval, repolarization abnormality Transthoracic echocardiogram 01/14/2020. Left ventricular ejection fraction is severely diminished and is estimated at 20 to 25% There is moderate to severe mitral regurgitation There is mild to moderate aortic regurgitation There is moderate tricuspid regurgitation There is moderate pulmonary hypertension by echocardiogram there is no pericardial effusion Telemetry overnight shows sinus rhythm, sinus tachycardia, nonsustained ventricular tachycardia Chest x-ray 01/13/2020 Small bilateral pleural effusions mild cardiomegaly Cardiac troponin I 0.028, 0.031, 0.033 BNP 5190 Creatinine is 1.47Twelve-lead EKG shows sinus rhythm at 91 bpm, left ventricular hypertrophy, borderline prolonged QT interval, repolarization abnormality Transthoracic echocardiogram 01/14/2020. Left ventricular ejection fraction is severely diminished and is estimated at 20 to 25% There is moderate to severe mitral regurgitation There is mild to moderate aortic regurgitation There is moderate tricuspid regurgitation There is moderate pulmonary hypertension by echocardiogram there is no pericardial effusion Telemetry overnight shows sinus rhythm, sinus tachycardia, nonsustained caro tricular tachycardia Chest x-ray 01/13/2020 Small bilateral pleural effusions mild cardiomegaly Cardiac troponin I 0.028, 0.031, 0.033 BNP 5190 Creatinine is 1.47Twelve-lead EKG shows sinus rhythm at 91 bpm, left ventricular hypertrophy, borderline prolonged QT interval, repolarization abnormality Transthoracic echocardiogram 01/14/2020. Left ventricular ejection fraction is severely diminished and is estimated at 20 to 25% There is moderate to severe mitral regurgitation There is mild to moderate aortic regurgitation There is moderate tricuspid regurgitation There is moderate pulmonary hypertension by echocardiogram there is no pericardial effusion Telemetry overnight shows sinus rhythm, sinus tachycardia, nonsustained ventricular tachycardia Chest x-ray 01/13/2020 Small bilateral pleural effusions mild cardiomegaly Cardiac troponin I 0.028, 0.031, 0.033 BNP 5190 Creatinine is 1.47Twelve-lead EKG shows sinus rhythm at 91 bpm, left ventricular hypertrophy, borderline prolonged QT interval, repolarization abnormality Transthoracic echocardiogram 01/14/2020. Left ventricular ejection fraction is severely diminished and is estimated at 20 to 25% There is moderate to severe mitral regurgitation There is mild to moderate aortic regurgitation There is moderate tricuspid regurgitation There is moderate pulmonary hypertension by echocardiogram there is no pericardial effusion Telemetry overnight shows sinus rhythm, sinus tachycardia, nonsustained ventricular tachycardia Chest x-ray 01/13/2020 Small bilateral pleural effusions mild cardiomegaly Cardiac troponin I 0.028, 0.031, 0.033 BNP 5190 Creatinine is 1.47Twelve-lead EKG shows sinus rhythm at 91 bpm, left ventricular hypertrophy, borderline prolonged QT interval, repolarization abnormality Transthoracic echocardiogram 01/14/2020. Left ventricular ejection fraction is severely diminished and is estimated at 20 to 25% There is moderate to severe mitral regurgitation There is mild to moderate aortic regurgitation There is moderate tricuspid regurgitation There is moderate pulmonary hypertension by echocardiogram there is no pericardial effusion Telemetry overnight shows sinus rhythm, sinus tachycardia, nonsustained ventricular tachycardia Chest x-ray 01/13/2020 Small bilateral pleural effusions mild cardiomegaly Cardiac troponin I 0.028, 0.031, 0.033 BNP 5190 Creatinine is 1.47Twelve-lead EKG shows sinus rhythm at 91 bpm, left ventricular hypertrophy, borderline prolonged QT interval, repolarization abnormality Transthoracic echocardiogram 01/14/2020. Left ventricular ejection fraction is severely diminished and is estimated at 20 to 25% There is moderate to severe mitral regurgitation There is mild to moderate aortic regurgitation There is moderate tricuspid regurgitation There is moderate pulmonary hypertension by echocardiogram there is no pericardial effusion Telemetry overnight shows sinus rhythm, sinus tachycardia, nonsustained ventricular tachycardia Chest x-ray 01/13/2020 Small bilateral pleural effusions mild cardiomegaly Cardiac troponin I 0.028, 0.031, 0.033 BNP 5190 Creatinine is 1.47Twelve-lead EKG shows sinus rhythm at 91 bpm, left ventricular hypertrophy, borderline prolonged QT interval, repolarization abnormality Transthoracic echocardiogram 01/14/2020. Left ventricular ejection fraction is severely diminished and is estimated at 20 to 25% There is moderate to severe mitral regurgitation There is mild to moderate aortic regurgitation There is moderate tricuspid regurgitation There is moderate pulmonary hypertension by echocardiogram there is no pe ricardial effusion Telemetry overnight shows sinus rhythm, sinus tachycardia, nonsustained ventricu lar tachycardia Chest x-ray 01/13/2020 Small bilateral pleural effusions mild cardiomegaly Cardiac troponin I 0.028, 0.031, 0.033 BNP 5190 Creatinine is 1.47Twelve-lead EKG shows sinus rhythm at 91 bpm, left ventricular hypertrophy, borderline prolonged QT interval, repolarization abnormality Transthoracic echocardiogram 01/14/2020. Left ventricular ejection fraction is severely diminished and is estimated at 20 to 25% There is moderate to severe mitral regurgitation There is mild to moderate aortic regurgitation There is moderate tricuspid regurgitation There is moderate pulmonary hypertension by echocardiogram there is no pericardial effusion Telemetry overnight shows sinus rhythm, sinus tachycardia, nonsustained ventricular tachycardia Chest x-ray 01/13/2020 Small bilateral pleural effusions mild cardiomegaly Cardiac troponin I 0.028, 0.031, 0.033 BNP 5190 Creatinine is 1.47Twelve-lead EKG shows sinus rhythm at 91 bpm, left ventricular hypertrophy, borderline prolonged QT interval, repolarization abnormality Transthoracic echocardiogram 01/14/2020. Left ventricular ejection fraction is severely diminished and is estimated at 20 to 25% There is moderate to severe mitral regurgitation There is mild to moderate aortic regurgitation There is moderate tricuspid regurgitation There is moderate pulmonary hypertension by echocardiogram there is no pericardial effusion Telemetry overnight shows sinus rhythm, sinus tachycardia, nonsustained ventricular tachycardia Chest x-ray 01/13/2020 Small bilateral pleural effusions mild cardiomegaly Cardiac troponin I 0.028, 0.031, 0.033 BNP 5190 Creatinine is 1.47Twelve-lead EKG shows sinus rhythm at 91 bpm, left ventricular hypertrophy, borderline prolonged QT interval, repolarization abnormality Transthoracic echocardiogram 01/14/2020. Left ventricular ejection fraction is severely diminished and is estimated at 20 to 25% There is moderate to severe mitral regurgitation There is mild to moderate aortic regurgitation There is moderate tricuspid regurgitation There is moderate pulmonary hypertension by echocardiogram there is no pericardial effusion Telemetry overnight shows sinus rhythm, sinus tachycardia, nonsustained ventricular tachycardia Chest x-ray 01/13/2020 Small bilateral pleural effusions mild cardiomegaly Cardiac troponin I 0.028, 0.031, 0.033 BNP 5190 Creatinine is 1.47Twelve-lead EKG shows sinus rhythm at 91 bpm, left ventricular hypertrophy, borderline prolonged QT interval, repolarization abnormality Transthoracic echocardiogram 01/14/2020. Left ventricular ejection fraction is severely diminished and is estimated at 20 to 25% There is moderate to severe mitral regurgitation There is mild to moderate aortic regurgitation There is moderate tricuspid regurgitation There is moderate pulmonary hypertension by echocardiogram there is no pericardial effusion Telemetry overnight shows sinus rhythm, sinus tachycardia, nonsustained ventricular tachycardia Chest x-ray 01/13/2020 Small bilateral pleural effusions mild cardiomegaly Cardiac troponin I 0.028, 0.031, 0.033 BNP 5190 Creatinine is 1.47Twelve-lead EKG shows sinus rhythm at 91 bpm, left ventricular hypertrophy, borderline prolonged QT interval, repolarization abnormality Transthoracic echocardiogram 01/14/2020. Left ventricular ejection fraction is severely diminished and is estimated at 20 to 25% There is moderate to severe mitral regurgitation There is mild to moderate aortic regurgitation There is moderate tricuspid regurgitation There is moderate pulmonary hypertension by echocardiogram there is no pericar dial effusion Telemetry overnight shows sinus rhythm, sinus tachycardia, nonsustained ventricular tachycardia Chest x-ray 01/13/2020 Small bilateral pleural effusions mild cardiomegaly Cardiac troponin I 0.028, 0.031, 0.033 BNP 5190 Creatinine is 1.47Twelve-lead EKG shows sinus rhythm at 91 bpm, left ventricular hypertrophy, borderline prolonged QT interval, repolarization abnormality Transthoracic echocardiogram 01/14/2020. Left ventricular ejection fraction is severely diminished and is estimated at 20 to 25% There is moderate to severe mitral regurgitation There is mild to moderate aortic regurgitation There is moderate tricuspid regurgitation There is moderate pulmonary hypertension by echocardiogram there is no pericardial effusion Telemetry overnight shows sinus rhythm, sinus tachycardia, nonsustained ventricular tachycardia Chest x-ray 01/13/2020 Small bilateral pleural effusions mild cardiomegaly Cardiac troponin I 0.028, 0.031, 0.033 BNP 5190 Creatinine is 1.47Twelve-lead EKG shows sinus rhythm at 91 bpm, left ventricular hypertrophy, borderline prolonged QT interval, repolarization abnormality Transthoracic echocardiogram 01/14/2020. Left ventricular ejection fraction is severely diminished and is estimated at 20 to 25% There is moderate to severe mitral regurgitation There is mild to moderate aortic regurgitation There is moderate tricuspid regurgitation There is moderate pulmonary hypertension by echocardiogram there is no pericardial effusion Telemetry overnight shows sinus rhythm, sinus tachycardia, nonsustained ventricular tachycardia Chest x-ray 01/13/2020 Small bilateral pleural effusions mild cardiomegaly Cardiac troponin I 0.028, 0.031, 0.033 BNP 5190 Creatinine is 1.47Twelve-lead EKG shows sinus rhythm at 91 bpm, left ventricular hypertrophy, borderline prolonged QT interval, repolarization abnormality Transthoracic echocardiogram 01/14/2020. Left ventricular ejection fraction is severely diminished and is estimated at 20 to 25% There is moderate to severe mitral regurgitation There is mild to moderate aortic regurgitation There is moderate tricuspid regurgitation There is moderate pulmonary hypertension by echocardiogram there is no pericardial effusion Telemetry overnight shows sinus rhythm, sinus tachycardia, nonsustained ventricular tachycardia Chest x-ray 01/13/2020 Small bilateral pleural effusions mild cardiomegaly Cardiac troponin I 0.028, 0.031, 0.033 BNP 5190 Creatinine is 1.47Twelve-lead EKG shows sinus rhythm at 91 bpm, left ventricular hypertrophy, borderline prolonged QT interval, repolarization abnormality Transthoracic echocardiogram 01/14/2020. Left ventricular ejection fraction is severely diminished and is estimated at 20 to 25% There is moderate to severe mitral regurgitation There is mild to moderate aortic regurgitation There is moderate tricuspid regurgitation There is moderate pulmonary hypertension by echocardiogram there is no pericardial effusion Telemetry overnight shows sinus rhythm, sinus tachycardia, nonsustained ventricular tachycardia Chest x-ray 01/13/2020 Small bilateral pleural effusions mild cardiomegaly Cardiac troponin I 0.028, 0.031, 0.033 BNP 5190 Creatinine is 1.47Twelve-lead EKG shows sinus rhythm at 91 bpm, left ventricular hypertrophy, borderline prolonged QT interval, repolarization abnormality Transthoracic echocardiogram 01/14/2020. Left ventricular ejection fraction is severely diminished and is estimated at 20 to 25% There is moderate to severe mitral regurgitation There is mild to moderate aortic regurgitation There is moderate tricuspid regurgitation There is moderate pulmonary hypertension by echocardiogram there is no pericardial effusion Telemetry overnight shows sinus rhythm, sinus tachycardia, nonsustained ventricular tachycardia Chest x-ray 01/13/2020 Small bilateral pleural effusions mild cardiomegaly Cardiac troponin I 0.028, 0.031, 0.033 BNP 5190 Creatinine is 1.47Twelve-lead EKG shows sinus rhythm at 91 bpm, left ventricular hypertrophy, borderline prolonged QT interval, repolarization abnormality Transthoracic echocardiogram 01/14/2020. Left ventricular ejection fraction is severely diminished and is estimated at 20 to 25% There is moderate to severe mitral regurgitation There is mild to moderate aortic regurgitation There is moderate tricuspid regurgitation There is moderate pulmonary hypertension by echocardiogram there is no pericardial effusion Telemetry overnight shows sinus rhythm, sinus tachycardia, nonsustained ventricular tachycardia Chest x-ray 01/13/2020 Small bilateral pleural effusions mild cardiomegaly Cardiac troponin I 0.028, 0.031, 0.033 BNP 5190 Creatinine is 1.47Twelve-lead EKG shows sinus rhythm at 91 bpm, left ventricular hypertrophy, borderline prolonged QT interval, repolarization abnormality Transthoracic echocardiogram 01/14/2020. Left ventricular ejection fraction is severely diminished and is estimated at 20 to 25% There is moderate to severe mitral regurgitation There is mild to moderate aortic regurgitation There is moderate tricuspid regurgitation There is moderate pulmonary hypertension by echocardiogram there is no pericardial effusion Telemetry overnight shows sinus rhythm, sinus tachycardia, nonsustained ventricular tachycardia Chest x-ray 01/13/2020 Small bilateral pleural effusions mild cardiomegaly Cardiac troponin I 0.028, 0.031, 0.033 BNP 5190 Creatinine is 1.47Twelve-lead EKG shows sinus rhythm at 91 bpm, left ventricular hypertrophy, borderline prolonged QT interval, repolarization abnormality Transthoracic echocardiogram 01/14/2020. Left ventricular ejection fraction is severely diminished and is estimated at 20 to 25% There is moderate to severe mitral regurgitation There is mild to moderate aortic regurgitation There is moderate tricuspid regurgitation There is moderate pulmonary hypertension by echocardiogram there is no pericardial effusion Telemetry overnight shows sinus rhythm, sinus tachycardia, nonsustained v entricular tachycardia Chest x-ray 01/13/2020 Small bilateral pleural effusions mild cardiomegaly Cardiac troponin I 0.028, 0.031, 0.033 BNP 5190 Creatinine is 1.47Twelve-lead EKG shows sinus rhythm at 91 bpm, left ventricular hypertrophy, borderline prolonged QT interval, repolarization abnormality Transthoracic echocardiogram 01/14/2020. Left ventricular ejection fraction is severely diminished and is estimated at 20 to 25% There is moderate to severe mitral regurgitation There is mild to moderate aortic regurgitation There is moderate tricuspid regurgitation There is moderate pulmonary hypertension by echocardiogram there is no pericardial effusion Telemetry overnight shows sinus rhythm, sinus tachycardia, nonsustained ventricular tachycardia Chest x-ray 01/13/2020 Small bilateral pleural effusions mild cardiomegaly Cardiac troponin I 0.028, 0.031, 0.033 BNP 5190 Creatinine is 1.47Twelve-lead EKG shows sinus rhythm at 91 bpm, left ventricular hypertrophy, borderline prolonged QT interval, repolarization abnormality Transthoracic echocardiogram 01/14/2020. Left ventricular ejection fraction is severely diminished and is estimated at 20 to 25% There is moderate to severe mitral regurgitation There is mild to moderate aortic regurgitation There is moderate tricuspid regurgitation There is moderate pulmonary hypertension by echocardiogram there is no pericardial effusion Telemetry overnight shows sinus rhythm, sinus tachycardia, nonsustained ventricular tachycardia Chest x-ray 01/13/2020 Small bilateral pleural effusions mild cardiomegaly Cardiac troponin I 0.028, 0.031, 0.033 BNP 5190 Creatinine is 1.47Twelve-lead EKG shows sinus rhythm at 91 bpm, left ventricular hypertrophy, borderline prolonged QT interval, repolarization abnormality Transthoracic echocardiogram 01/14/2020. Left ventricular ejection fraction is severely diminished and is estimated at 20 to 25% There is moderate to severe mitral regurgitation There is mild to moderate aortic regurgitation There is moderate tricuspid regurgitation There is moderate pulmonary hypertension by echocardiogram there is no pericardial effusion Telemetry overnight shows sinus rhythm, sinus tachycardia, nonsustained ventricular tachycardia Chest x-ray 01/13/2020 Small bilateral pleural effusions mild cardiomegaly Cardiac troponin I 0.028, 0.031, 0.033 BNP 5190 Creatinine is 1.47Twelve-lead EKG shows sinus rhythm at 91 bpm, left ventricular hypertrophy, borderline prolonged QT interval, repolarization abnormality Transthoracic echocardiogram 01/14/2020. Left ventricular ejection fraction is severely diminished and is estimated at 20 to 25% There is moderate to severe mitral regurgitation There is mild to moderate aortic regurgitation There is moderate tricuspid regurgitation There is moderate pulmonary hypertension by echocardiogram there is no pericardial effusion Telemetry overnight shows sinus rhythm, sinus tachycardia, nonsustained ventricular tachycardia Chest x-ray 01/13/2020 Small bilateral pleural effusions mild cardiomegaly Cardiac troponin I 0.028, 0.031, 0.033 BNP 5190 Creatinine is 1.47Twelve-lead EKG shows sinus rhythm at 91 bpm, left ventricular hypertrophy, borderline prolonged QT interval, repolarization abnormality Transthoracic echocardiogram 01/14/2020. Left ventricular ejection fraction is severely diminished and is estimated at 20 to 25% There is moderate to severe mitral regurgitation There is mild to moderate aortic regurgitation There is moderate tricuspid regurgitation There is moderate pulmonary hypertension by echocardiogram there is no pericardial effusion Telemetry overnight shows sinus rhythm, sinus tachycardia, nonsustained ventri cular tachycardia Chest x-ray 01/13/2020 Small bilateral pleural effusions mild cardiomegaly Cardiac troponin I 0.028, 0.031, 0.033 BNP 5190 Creatinine is 1.47Twelve-lead EKG shows sinus rhythm at 91 bpm, left ventricular hypertrophy, borderline prolonged QT interval, repolarization abnormality Transthoracic echocardiogram 01/14/2020. Left ventricular ejection fraction is severely diminished and is estimated at 20 to 25% There is moderate to severe mitral regurgitation There is mild to moderate aortic regurgitation There is moderate tricuspid regurgitation There is moderate pulmonary hypertension by echocardiogram there is no pericardial effusion Telemetry overnight shows sinus rhythm, sinus tachycardia, nonsustained ventricular tachycardia Chest x-ray 01/13/2020 Small bilateral pleural effusions mild cardiomegaly Cardiac troponin I 0.028, 0.031, 0.033 BNP 5190 Creatinine is 1.47Twelve-lead EKG shows sinus rhythm at 91 bpm, left ventricular hypertrophy, borderline prolonged QT interval, repolarization abnormality Transthoracic echocardiogram 01/14/2020. Left ventricular ejection fraction is severely diminished and is estimated at 20 to 25% There is moderate to severe mitral regurgitation There is mild to moderate aortic regurgitation There is moderate tricuspid regurgitation There is moderate pulmonary hypertension by echocardiogram there is no pericardial effusion Telemetry overnight shows sinus rhythm, sinus tachycardia, nonsustained ventricular tachycardia Chest x-ray 01/13/2020 Small bilateral pleural effusions mild cardiomegaly Cardiac troponin I 0.028, 0.031, 0.033 BNP 5190 Creatinine is 1.47Twelve-lead EKG shows sinus rhythm at 91 bpm, left ventricular hypertrophy, borderline prolonged QT interval, repolarization abnormality Transthoracic echocardiogram 01/14/2020. Left ventricular ejection fraction is severely diminished and is estimated at 20 to 25% There is moderate to severe mitral regurgitation There is mild to moderate aortic regurgitation There is moderate tricuspid regurgitation There is moderate pulmonary hypertension by echocardiogram there is no pericardial effusion Telemetry overnight shows sinus rhythm, sinus tachycardia, nonsustained ventricular tachycardia Chest x-ray 01/13/2020 Small bilateral pleural effusions mild cardiomegaly Cardiac troponin I 0.028, 0.031, 0.033 BNP 5190 Creatinine is 1.47Twelve-lead EKG shows sinus rhythm at 91 bpm, left ventricular hypertrophy, borderline prolonged QT interval, repolarization abnormality Transthoracic echocardiogram 01/14/2020. Left ventricular ejection fraction is severely diminished and is estimated at 20 to 25% There is moderate to severe mitral regurgitation There is mild to moderate aortic regurgitation There is moderate tricuspid regurgitation There is moderate pulmonary hypertension by echocardiogram there is no pericardial effusion Telemetry overnight shows sinus rhythm, sinus tachycardia, nonsustained ventricular tachycardia Chest x-ray 01/13/2020 Small bilateral pleural effusions mild cardiomegaly Cardiac troponin I 0.028, 0.031, 0.033 BNP 5190 Creatinine is 1.47Twelve-lead EKG shows sinus rhythm at 91 bpm, left ventricular hypertrophy, borderline prolonged QT interval, repolarization abnormality Transthoracic echocardiogram 01/14/2020. Left ventricular ejection fraction is severely diminished and is estimated at 20 to 25% There is moderate to severe mitral regurgitation There is mild to moderate aortic regurgitation There is moderate tricuspid regurgitation There is moderate pulmonary hypertension by echocardiogram there is no peric ardial effusion Telemetry overnight shows sinus rhythm, sinus tachycardia, nonsustained ventricular tachycardia Chest x-ray 01/13/2020 Small bilateral pleural effusions mild cardiomegaly Cardiac troponin I 0.028, 0.031, 0.033 BNP 5190 Creatinine is 1.47Twelve-lead EKG shows sinus rhythm at 91 bpm, left ventricular hypertrophy, borderline prolonged QT interval, repolarization abnormality Transthoracic echocardiogram 01/14/2020. Left ventricular ejection fraction is severely diminished and is estimated at 20 to 25% There is moderate to severe mitral regurgitation There is mild to moderate aortic regurgitation There is moderate tricuspid regurgitation There is moderate pulmonary hypertension by echocardiogram there is no pericardial effusion Telemetry overnight shows sinus rhythm, sinus tachycardia, nonsustained ventricular tachycardia Chest x-ray 01/13/2020 Small bilateral pleural effusions mild cardiomegaly Cardiac troponin I 0.028, 0.031, 0.033 BNP 5190 Creatinine is 1.47Twelve-lead EKG shows sinus rhythm at 91 bpm, left ventricular hypertrophy, borderline prolonged QT interval, repolarization abnormality Transthoracic echocardiogram 01/14/2020. Left ventricular ejection fraction is severely diminished and is estimated at 20 to 25% There is moderate to severe mitral regurgitation There is mild to moderate aortic regurgitation There is moderate tricuspid regurgitation There is moderate pulmonary hypertension by echocardiogram there is no pericardial effusion Telemetry overnight shows sinus rhythm, sinus tachycardia, nonsustained ventricular tachycardia Chest x-ray 01/13/2020 Small bilateral pleural effusions mild cardiomegaly Cardiac troponin I 0.028, 0.031, 0.033 BNP 5190 Creatinine is 1.47Twelve-lead EKG shows sinus rhythm at 91 bpm, left ventricular hypertrophy, borderline prolonged QT interval, repolarization abnormality Transthoracic echocardiogram 01/14/2020. Left ventricular ejection fraction is severely diminished and is estimated at 20 to 25% There is moderate to severe mitral regurgitation There is mild to moderate aortic regurgitation There is moderate tricuspid regurgitation There is moderate pulmonary hypertension by echocardiogram there is no pericardial effusion Telemetry overnight shows sinus rhythm, sinus tachycardia, nonsustained ventricular tachycardia Chest x-ray 01/13/2020 Small bilateral pleural effusions mild cardiomegaly Cardiac troponin I 0.028, 0.031, 0.033 BNP 5190 Creatinine is 1.47Twelve-lead EKG shows sinus rhythm at 91 bpm, left ventricular hypertrophy, borderline prolonged QT interval, repolarization abnormality Transthoracic echocardiogram 01/14/2020. Left ventricular ejection fraction is severely diminished and is estimated at 20 to 25% There is moderate to severe mitral regurgitation There is mild to moderate aortic regurgitation There is moderate tricuspid regurgitation There is moderate pulmonary hypertension by echocardiogram there is no pericardial effusion Telemetry overnight shows sinus rhythm, sinus tachycardia, nonsustained ventricular tachycardia Chest x-ray 01/13/2020 Small bilateral pleural effusions mild cardiomegaly Cardiac troponin I 0.028, 0.031, 0.033 BNP 5190 Creatinine is 1.47Twelve-lead EKG shows sinus rhythm at 91 bpm, left ventricular hypertrophy, borderline prolonged QT interval, repolarization abnormality Transthoracic echocardiogram 01/14/2020. Left ventricular ejection fraction is severely diminished and is estimated at 20 to 25% There is moderate to severe mitral regurgitation There is mild to moderate aortic regurgitation There is moderate tricuspid regurgitation There is moderate pulmonary hypertension by echocardiogram there is no pericardial effusion Telemetry overnight shows sinus rhythm, sinus tachycardia, nonsustained ventricular tachycardia Chest x-ray 01/13/2020 Small bilateral pleural effusions mild cardiomegaly Cardiac troponin I 0.028, 0.031, 0.033 BNP 5190 Creatinine is 1.47Twelve-lead EKG shows sinus rhythm at 91 bpm, left ventricular hypertrophy, borderline prolonged QT interval, repolarization abnormality Transthoracic echocardiogram 01/14/2020. Left ventricular ejection fraction is severely diminished and is estimated at 20 to 25% There is moderate to severe mitral regurgitation There is mild to moderate aortic regurgitation There is moderate tricuspid regurgitation There is moderate pulmonary hypertension by echocardiogram there is no pericardial effusion Telemetry overnight shows sinus rhythm, sinus tachycardia, nonsustained ventricular tachycardia Chest x-ray 01/13/2020 Small bilateral pleural effusions mild cardiomegaly Cardiac troponin I 0.028, 0.031, 0.033 BNP 5190 Creatinine is 1.47Twelve-lead EKG shows sinus rhythm at 91 bpm, left ventricular hypertrophy, borderline prolonged QT interval, repolarization abnormality Transthoracic echocardiogram 01/14/2020. Left ventricular ejection fraction is severely diminished and is estimated at 20 to 25% There is moderate to severe mitral regurgitation There is mild to moderate aortic regurgitation There is moderate tricuspid regurgitation There is moderate pulmonary hypertension by echocardiogram there is no pericardial effusion Telemetry overnight shows sinus rhythm, sinus tachycardia, nonsustained ventricular tachycardia Chest x-ray 01/13/2020 Small bilateral pleural effusions mild cardiomegaly Cardiac troponin I 0.028, 0.031, 0.033 BNP 5190 Creatinine is 1.47Twelve-lead EKG shows sinus rhythm at 91 bpm, left ventricular hypertrophy, borderline prolonged QT interval, repolarization abnormality Transthoracic echocardiogram 01/14/2020. Left ventricular ejection fraction is severely diminished and is estimated at 20 to 25% There is moderate to severe mitral regurgitation There is mild to moderate aortic regurgitation There is moderate tricuspid regurgitation There is moderate pulmonary hypertension by echocardiogram there is no pericardial effusion Telemetry overnight shows sinus rhythm, sinus tachycardia, nonsustained ventricular tachycardia Chest x-ray 01/13/2020 Small bilateral pleural effusions mild cardiomegaly Cardiac troponin I 0.028, 0.031, 0.033 BNP 5190 Creatinine is 1.47Twelve-lead EKG shows sinus rhythm at 91 bpm, left ventricular hypertrophy, borderline prolonged QT interval, repolarization abnormality Transthoracic echocardiogram 01/14/2020. Left ventricular ejection fraction is severely diminished and is estimated at 20 to 25% There is moderate to severe mitral regurgitation There is mild to moderate aortic regurgitation There is moderate tricuspid regurgitation There is moderate pulmonary hypertension by echocardiogram there is no pericardial effusion Telemetry overnight shows sinus rhythm, sinus tachycardia, nonsustained ventricular tachycardia Chest x-ray 01/13/2020 Small bilateral pleural effusions mild cardiomegaly Cardiac troponin I 0.028, 0.031, 0.033 BNP 5190 Creatinine is 1.47Twelve-lead EKG shows sinus rhythm at 91 bpm, left ventricular hypertrophy, borderline prolonged QT interval, repolarization abnormality Transthoracic echocardiogram 01/14/2020. Left ventricular ejection fraction is severely diminished and is estimated at 20 to 25% There is moderate to severe mitral regurgitation There is mild to moderate aortic regurgitation There is moderate tricuspid regurgitation There is moderate pulmonary hypertension by echocardiogram there is no pericardial effusion Telemetry overnight shows sinus rhythm, sinus tachycardia, nonsustained ventricular tachycardia Chest x-ray 01/13/2020 Small bilateral pleural effusions mild cardiomegaly Cardiac troponin I 0.028, 0.031, 0.033 BNP 5190 Creatinine is 1.47Twelve-lead EKG shows sinus rhythm at 91 bpm, left ventricular hypertrophy, borderline prolonged QT interval, repolarization abnormality Transthoracic echocardiogram 01/14/2020. Left ventricular ejection fraction is severely diminished and is estimated at 20 to 25% There is moderate to severe mitral regurgitation There is mild to moderate aortic regurgitation There is moderate tricuspid regurgitation There is moderate pulmonary hypertension by echocardiogram there is no pericardial effusion Telemetry overnight shows sinus rhythm, sinus tachycardia, nonsustained ventricular tachycardia Chest x-ray 01/13/2020 Small bilateral pleural effusions mild cardiomegaly Cardiac troponin I 0.028, 0.031, 0.033 BNP 5190 Creatinine is 1.47Twelve-lead EKG shows sinus rhythm at 91 bpm, left ventricular hypertrophy, borderline prolonged QT interval, repolarization abnormality Transthoracic echocardiogram 01/14/2020. Left ventricular ejection fraction is severely diminished and is estimated at 20 to 25% There is moderate to severe mitral regurgitation There is mild to moderate aortic regurgitation There is moderate tricuspid regurgitation There is moderate pulmonary hypertension by echocardiogram there is no pericardial effusion Telemetry overnight shows sinus rhythm, sinus tachycardia, nonsustained ventricular tachycardia Chest x-ray 01/13/2020 Small bilateral pleural effusions mild cardiomegaly Cardiac troponin I 0.028, 0.031, 0.033 BNP 5190 Creatinine is 1.47Twelve-lead EKG shows sinus rhythm at 91 bpm, left ventricular hypertrophy, borderline prolonged QT interval, repolarization abnormality Transthoracic echocardiogram 01/14/2020. Left ventricular ejection fraction is severely diminished and is estimated at 20 to 25% There is moderate to severe mitral regurgitation There is mild to moderate aortic regurgitation There is moderate tricuspid regurgitation There is moderate pulmonary hypertension by echocardiogram there is no pericardial effusion Telemetry overnight shows sinus rhythm, sinus tachycardia, nonsustained vent ricular tachycardia Chest x-ray 01/13/2020 Small bilateral pleural effusions mild cardiomegaly Cardiac troponin I 0.028, 0.031, 0.033 BNP 5190 Creatinine is 1.47Twelve-lead EKG shows sinus rhythm at 91 bpm, left ventricular hypertrophy, borderline prolonged QT interval, repolarization abnormality Transthoracic echocardiogram 01/14/2020. Left ventricular ejection fraction is severely diminished and is estimated at 20 to 25% There is moderate to severe mitral regurgitation There is mild to moderate aortic regurgitation There is moderate tricuspid regurgitation There is moderate pulmonary hypertension by echocardiogram there is no pericardial effusion Telemetry overnight shows sinus rhythm, sinus tachycardia, nonsustained ventricular tachycardia Chest x-ray 01/13/2020 Small bilateral pleural effusions mild cardiomegaly Cardiac troponin I 0.028, 0.031, 0.033 BNP 5190 Creatinine is 1.47Twelve-lead EKG shows sinus rhythm at 91 bpm, left ventricular hypertrophy, borderline prolonged QT interval, repolarization abnormality Transthoracic echocardiogram 01/14/2020. Left ventricular ejection fraction is severely diminished and is estimated at 20 to 25% There is moderate to severe mitral regurgitation There is mild to moderate aortic regurgitation There is moderate tricuspid regurgitation There is moderate pulmonary hypertension by echocardiogram there is no pericardial effusion Telemetry overnight shows sinus rhythm, sinus tachycardia, nonsustained ventricular tachycardia Chest x-ray 01/13/2020 Small bilateral pleural effusions mild cardiomegaly Cardiac troponin I 0.028, 0.031, 0.033 BNP 5190 Creatinine is 1.47Twelve-lead EKG shows sinus rhythm at 91 bpm, left ventricular hypertrophy, borderline prolonged QT interval, repolarization abnormality Transthoracic echocardiogram 01/14/2020. Left ventricular ejection fraction is severely diminished and is estimated at 20 to 25% There is moderate to severe mitral regurgitation There is mild to moderate aortic regurgitation There is moderate tricuspid regurgitation There is moderate pulmonary hypertension by echocardiogram there is no pericardial effusion Telemetry overnight shows sinus rhythm, sinus tachycardia, nonsustained ventricular tachycardia Chest x-ray 01/13/2020 Small bilateral pleural effusions mild cardiomegaly Cardiac troponin I 0.028, 0.031, 0.033 BNP 5190 Creatinine is 1.47Twelve-lead EKG shows sinus rhythm at 91 bpm, left ventricular hypertrophy, borderline prolonged QT interval, repolarization abnormality Transthoracic echocardiogram 01/14/2020. Left ventricular ejection fraction is severely diminished and is estimated at 20 to 25% There is moderate to severe mitral regurgitation There is mild to moderate aortic regurgitation There is moderate tricuspid regurgitation There is moderate pulmonary hypertension by echocardiogram there is no pericardial effusion Telemetry overnight shows sinus rhythm, sinus tachycardia, nonsustained ventricular tachycardia Chest x-ray 01/13/2020 Small bilateral pleural effusions mild cardiomegaly Cardiac troponin I 0.028, 0.031, 0.033 BNP 5190 Creatinine is 1.47Twelve-lead EKG shows sinus rhythm at 91 bpm, left ventricular hypertrophy, borderline prolonged QT interval, repolarization abnormality Transthoracic echocardiogram 01/14/2020. Left ventricular ejection fraction is severely diminished and is estimated at 20 to 25% There is moderate to severe mitral regurgitation There is mild to moderate aortic regurgitation There is moderate tricuspid regurgitation There is moderate pulmonary hypertension by echocardiogram there is no per icardial effusion Telemetry overnight shows sinus rhythm, sinus tachycardia, nonsustained ventricular tachycardia Chest x-ray 01/13/2020 Small bilateral pleural effusions mild cardiomegaly Cardiac troponin I 0.028, 0.031, 0.033 BNP 5190 Creatinine is 1.47Twelve-lead EKG shows sinus rhythm at 91 bpm, left ventricular hypertrophy, borderline prolonged QT interval, repolarization abnormality Transthoracic echocardiogram 01/14/2020. Left ventricular ejection fraction is severely diminished and is estimated at 20 to 25% There is moderate to severe mitral regurgitation There is mild to moderate aortic regurgitation There is moderate tricuspid regurgitation There is moderate pulmonary hypertension by echocardiogram there is no pericardial effusion Telemetry overnight shows sinus rhythm, sinus tachycardia, nonsustained ventricular tachycardia Chest x-ray 01/13/2020 Small bilateral pleural effusions mild cardiomegaly Cardiac troponin I 0.028, 0.031, 0.033 BNP 5190 Creatinine is 1.47Twelve-lead EKG shows sinus rhythm at 91 bpm, left ventricular hypertrophy, borderline prolonged QT interval, repolarization abnormality Transthoracic echocardiogram 01/14/2020. Left ventricular ejection fraction is severely diminished and is estimated at 20 to 25% There is moderate to severe mitral regurgitation There is mild to moderate aortic regurgitation There is moderate tricuspid regurgitation There is moderate pulmonary hypertension by echocardiogram there is no pericardial effusion Telemetry overnight shows sinus rhythm, sinus tachycardia, nonsustained ventricular tachycardia Chest x-ray 01/13/2020 Small bilateral pleural effusions mild cardiomegaly Cardiac troponin I 0.028, 0.031, 0.033 BNP 5190 Creatinine is 1.47Twelve-lead EKG shows sinus rhythm at 91 bpm, left ventricular hypertrophy, borderline prolonged QT interval, repolarization abnormality Transthoracic echocardiogram 01/14/2020. Left ventricular ejection fraction is severely diminished and is estimated at 20 to 25% There is moderate to severe mitral regurgitation There is mild to moderate aortic regurgitation There is moderate tricuspid regurgitation There is moderate pulmonary hypertension by echocardiogram there is no pericardial effusion Telemetry overnight shows sinus rhythm, sinus tachycardia, nonsustained ventricular tachycardia Chest x-ray 01/13/2020 Small bilateral pleural effusions mild cardiomegaly Cardiac troponin I 0.028, 0.031, 0.033 BNP 5190 Creatinine is 1.47Twelve-lead EKG shows sinus rhythm at 91 bpm, left ventricular hypertrophy, borderline prolonged QT interval, repolarization abnormality Transthoracic echocardiogram 01/14/2020. Left ventricular ejection fraction is severely diminished and is estimated at 20 to 25% There is moderate to severe mitral regurgitation There is mild to moderate aortic regurgitation There is moderate tricuspid regurgitation There is moderate pulmonary hypertension by echocardiogram there is no pericardial effusion Telemetry overnight shows sinus rhythm, sinus tachycardia, nonsustained ventricular tachycardia Chest x-ray 01/13/2020 Small bilateral pleural effusions mild cardiomegaly Cardiac troponin I 0.028, 0.031, 0.033 BNP 5190 Creatinine is 1.47Twelve-lead EKG shows sinus rhythm at 91 bpm, left ventricular hypertrophy, borderline prolonged QT interval, repolarization abnormality Transthoracic echocardiogram 01/14/2020. Left ventricular ejection fraction is severely diminished and is estimated at 20 to 25% There is moderate to severe mitral regurgitation There is mild to moderate aortic regurgitation There is moderate tricuspid regurgitation There is moderate pulmonary hypertension by echocardiogram there is no pericard ial effusion Telemetry overnight shows sinus rhythm, sinus tachycardia, nonsustained ventricular tachycardia Chest x-ray 01/13/2020 Small bilateral pleural effusions mild cardiomegaly Cardiac troponin I 0.028, 0.031, 0.033 BNP 5190 Creatinine is 1.47Twelve-lead EKG shows sinus rhythm at 91 bpm, left ventricular hypertrophy, borderline prolonged QT interval, repolarization abnormality Transthoracic echocardiogram 01/14/2020. Left ventricular ejection fraction is severely diminished and is estimated at 20 to 25% There is moderate to severe mitral regurgitation There is mild to moderate aortic regurgitation There is moderate tricuspid regurgitation There is moderate pulmonary hypertension by echocardiogram there is no pericardial effusion Telemetry overnight shows sinus rhythm, sinus tachycardia, nonsustained ventricular tachycardia Chest x-ray 01/13/2020 Small bilateral pleural effusions mild cardiomegaly Cardiac troponin I 0.028, 0.031, 0.033 BNP 5190 Creatinine is 1.47Twelve-lead EKG shows sinus rhythm at 91 bpm, left ventricular hypertrophy, borderline prolonged QT interval, repolarization abnormality Transthoracic echocardiogram 01/14/2020. Left ventricular ejection fraction is severely diminished and is estimated at 20 to 25% There is moderate to severe mitral regurgitation There is mild to moderate aortic regurgitation There is moderate tricuspid regurgitation There is moderate pulmonary hypertension by echocardiogram there is no pericardial effusion Telemetry overnight shows sinus rhythm, sinus tachycardia, nonsustained ventricular tachycardia Chest x-ray 01/13/2020 Small bilateral pleural effusions mild cardiomegaly Cardiac troponin I 0.028, 0.031, 0.033 BNP 5190 Creatinine is 1.47Twelve-lead EKG shows sinus rhythm at 91 bpm, left ventricular hypertrophy, borderline prolonged QT interval, repolarization abnormality Transthoracic echocardiogram 01/14/2020. Left ventricular ejection fraction is severely diminished and is estimated at 20 to 25% There is moderate to severe mitral regurgitation There is mild to moderate aortic regurgitation There is moderate tricuspid regurgitation There is moderate pulmonary hypertension by echocardiogram there is no pericardial effusion Telemetry overnight shows sinus rhythm, sinus tachycardia, nonsustained ventricular tachycardia Chest x-ray 01/13/2020 Small bilateral pleural effusions mild cardiomegaly Cardiac troponin I 0.028, 0.031, 0.033 BNP 5190 Creatinine is 1.47Twelve-lead EKG shows sinus rhythm at 91 bpm, left ventricular hypertrophy, borderline prolonged QT interval, repolarization abnormality Transthoracic echocardiogram 01/14/2020. Left ventricular ejection fraction is severely diminished and is estimated at 20 to 25% There is moderate to severe mitral regurgitation There is mild to moderate aortic regurgitation There is moderate tricuspid regurgitation There is moderate pulmonary hypertension by echocardiogram there is no pericardial effusion Telemetry overnight shows sinus rhythm, sinus tachycardia, nonsustained ventricular tachycardia Chest x-ray 01/13/2020 Small bilateral pleural effusions mild cardiomegaly Cardiac troponin I 0.028, 0.031, 0.033 BNP 5190 Creatinine is 1.47Twelve-lead EKG shows sinus rhythm at 91 bpm, left ventricular hypertrophy, borderline prolonged QT interval, repolarization abnormality Transthoracic echocardiogram 01/14/2020. Left ventricular ejection fraction is severely diminished and is estimated at 20 to 25% There is moderate to severe mitral regurgitation There is mild to moderate aortic regurgitation There is moderate tricuspid regurgitation There is moderate pulmonary hypertension by echocardiogram there is no pericardial effusion Telemetry overnight shows sinus rhythm, sinus tachycardia, nonsustained ventricular tachycardia Chest x-ray 01/13/2020 Small bilateral pleural effusions mild cardiomegaly Cardiac troponin I 0.028, 0.031, 0.033 BNP 5190 Creatinine is 1.47Twelve-lead EKG shows sinus rhythm at 91 bpm, left ventricular hypertrophy, borderline prolonged QT interval, repolarization abnormality Transthoracic echocardiogram 01/14/2020. Left ventricular ejection fraction is severely diminished and is estimated at 20 to 25% There is moderate to severe mitral regurgitation There is mild to moderate aortic regurgitation There is moderate tricuspid regurgitation There is moderate pulmonary hypertension by echocardiogram there is no pericardial effusion Telemetry overnight shows sinus rhythm, sinus tachycardia, nonsustained ventricular tachycardia Chest x-ray 01/13/2020 Small bilateral pleural effusions mild cardiomegaly Cardiac troponin I 0.028, 0.031, 0.033 BNP 5190 Creatinine is 1.47Twelve-lead EKG shows sinus rhythm at 91 bpm, left ventricular hypertrophy, borderline prolonged QT interval, repolarization abnormality Transthoracic echocardiogram 01/14/2020. Left ventricular ejection fraction is severely diminished and is estimated at 20 to 25% There is moderate to severe mitral regurgitation There is mild to moderate aortic regurgitation There is moderate tricuspid regurgitation There is moderate pulmonary hypertension by echocardiogram there is no pericardial effusion Telemetry overnight shows sinus rhythm, sinus tachycardia, nonsustained ventricular tachycardia Chest x-ray 01/13/2020 Small bilateral pleural effusions mild cardiomegaly Cardiac troponin I 0.028, 0.031, 0.033 BNP 5190 Creatinine is 1.47Twelve-lead EKG shows sinus rhythm at 91 bpm, left ventricular hypertrophy, borderline prolonged QT interval, repolarization abnormality Transthoracic echocardiogram 01/14/2020. Left ventricular ejection fraction is severely diminished and is estimated at 20 to 25% There is moderate to severe mitral regurgitation There is mild to moderate aortic regurgitation There is moderate tricuspid regurgitation There is moderate pulmonary hypertension by echocardiogram there is no pericardial effusion Telemetry overnight shows sinus rhythm, sinus tachycardia, nonsustained ve ntricular tachycardia Chest x-ray 01/13/2020 Small bilateral pleural effusions mild cardiomegaly Cardiac troponin I 0.028, 0.031, 0.033 BNP 5190 Creatinine is 1.47Twelve-lead EKG shows sinus rhythm at 91 bpm, left ventricular hypertrophy, borderline prolonged QT interval, repolarization abnormality Transthoracic echocardiogram 01/14/2020. Left ventricular ejection fraction is severely diminished and is estimated at 20 to 25% There is moderate to severe mitral regurgitation There is mild to moderate aortic regurgitation There is moderate tricuspid regurgitation There is moderate pulmonary hypertension by echocardiogram there is no pericardial effusion Telemetry overnight shows sinus rhythm, sinus tachycardia, nonsustained ventricular tachycardia Chest x-ray 01/13/2020 Small bilateral pleural effusions mild cardiomegaly Cardiac troponin I 0.028, 0.031, 0.033 BNP 5190 Creatinine is 1.47Twelve-lead EKG shows sinus rhythm at 91 bpm, left ventricular hypertrophy, borderline prolonged QT interval, repolarization abnormality Transthoracic echocardiogram 01/14/2020. Left ventricular ejection fraction is severely diminished and is estimated at 20 to 25% There is moderate to severe mitral regurgitation There is mild to moderate aortic regurgitation There is moderate tricuspid regurgitation There is moderate pulmonary hypertension by echocardiogram there is no pericardial effusion Telemetry overnight shows sinus rhythm, sinus tachycardia, nonsustained ventricular tachycardia Chest x-ray 01/13/2020 Small bilateral pleural effusions mild cardiomegaly Cardiac troponin I 0.028, 0.031, 0.033 BNP 5190 Creatinine is 1.47Twelve-lead EKG shows sinus rhythm at 91 bpm, left ventricular hypertrophy, borderline prolonged QT interval, repolarization abnormality Transthoracic echocardiogram 01/14/2020. Left ventricular ejection fraction is severely diminished and is estimated at 20 to 25% There is moderate to severe mitral regurgitation There is mild to moderate aortic regurgitation There is moderate tricuspid regurgitation There is moderate pulmonary hypertension by echocardiogram there is no pericardial effusion Telemetry overnight shows sinus rhythm, sinus tachycardia, nonsustained ventricular tachycardia Chest x-ray 01/13/2020 Small bilateral pleural effusions mild cardiomegaly Cardiac troponin I 0.028, 0.031, 0.033 BNP 5190 Creatinine is 1.47Twelve-lead EKG shows sinus rhythm at 91 bpm, left ventricular hypertrophy, borderline prolonged QT interval, repolarization abnormality Transthoracic echocardiogram 01/14/2020. Left ventricular ejection fraction is severely diminished and is estimated at 20 to 25% There is moderate to severe mitral regurgitation There is mild to moderate aortic regurgitation There is moderate tricuspid regurgitation There is moderate pulmonary hypertension by echocardiogram there is no pericardial effusion Telemetry overnight shows sinus rhythm, sinus tachycardia, nonsustained ventricular tachycardia Chest x-ray 01/13/2020 Small bilateral pleural effusions mild cardiomegaly Cardiac troponin I 0.028, 0.031, 0.033 BNP 5190 Creatinine is 1.47Twelve-lead EKG shows sinus rhythm at 91 bpm, left ventricular hypertrophy, borderline prolonged QT interval, repolarization abnormality Transthoracic echocardiogram 01/14/2020. Left ventricular ejection fraction is severely diminished and is estimated at 20 to 25% There is moderate to severe mitral regurgitation There is mild to moderate aortic regurgitation There is moderate tricuspid regurgitation There is moderate pulmonary hypertension by echocardiogram there is no p ericardial effusion Telemetry overnight shows sinus rhythm, sinus tachycardia, nonsustained ventric ular tachycardia Chest x-ray 01/13/2020 Small bilateral pleural effusions mild cardiomegaly Cardiac troponin I 0.028, 0.031, 0.033 BNP 5190 Creatinine is 1.47Twelve-lead EKG shows sinus rhythm at 91 bpm, left ventricular hypertrophy, borderline prolonged QT interval, repolarization abnormality Transthoracic echocardiogram 01/14/2020. Left ventricular ejection fraction is severely diminished and is estimated at 20 to 25% There is moderate to severe mitral regurgitation There is mild to moderate aortic regurgitation There is moderate tricuspid regurgitation There is moderate pulmonary hypertension by echocardiogram there is no pericardial effusion Telemetry overnight shows sinus rhythm, sinus tachycardia, nonsustained ventricular tachycardia Chest x-ray 01/13/2020 Small bilateral pleural effusions mild cardiomegaly Cardiac troponin I 0.028, 0.031, 0.033 BNP 5190 Creatinine is 1.47Twelve-lead EKG shows sinus rhythm at 91 bpm, left ventricular hypertrophy, borderline prolonged QT interval, repolarization abnormality Transthoracic echocardiogram 01/14/2020. Left ventricular ejection fraction is severely diminished and is estimated at 20 to 25% There is moderate to severe mitral regurgitation There is mild to moderate aortic regurgitation There is moderate tricuspid regurgitation There is moderate pulmonary hypertension by echocardiogram there is no pericardial effusion Telemetry overnight shows sinus rhythm, sinus tachycardia, nonsustained ventricular tachycardia Chest x-ray 01/13/2020 Small bilateral pleural effusions mild cardiomegaly Cardiac troponin I 0.028, 0.031, 0.033 BNP 5190 Creatinine is 1.47Twelve-lead EKG shows sinus rhythm at 91 bpm, left ventricular hypertrophy, borderline prolonged QT interval, repolarization abnormality Transthoracic echocardiogram 01/14/2020. Left ventricular ejection fraction is severely diminished and is estimated at 20 to 25% There is moderate to severe mitral regurgitation There is mild to moderate aortic regurgitation There is moderate tricuspid regurgitation There is moderate pulmonary hypertension by echocardiogram there is no pericardial effusion Telemetry overnight shows sinus rhythm, sinus tachycardia, nonsustained ventricular tachycardia Chest x-ray 01/13/2020 Small bilateral pleural effusions mild cardiomegaly Cardiac troponin I 0.028, 0.031, 0.033 BNP 5190 Creatinine is 1.47Twelve-lead EKG shows sinus rhythm at 91 bpm, left ventricular hypertrophy, borderline prolonged QT interval, repolarization abnormality Transthoracic echocardiogram 01/14/2020. Left ventricular ejection fraction is severely diminished and is estimated at 20 to 25% There is moderate to severe mitral regurgitation There is mild to moderate aortic regurgitation There is moderate tricuspid regurgitation There is moderate pulmonary hypertension by echocardiogram there is no pericardial effusion Telemetry overnight shows sinus rhythm, sinus tachycardia, nonsustained ventricular tachycardia Chest x-ray 01/13/2020 Small bilateral pleural effusions mild cardiomegaly Cardiac troponin I 0.028, 0.031, 0.033 BNP 5190 Creatinine is 1.47Twelve-lead EKG shows sinus rhythm at 91 bpm, left ventricular hypertrophy, borderline prolonged QT interval, repolarization abnormality Transthoracic echocardiogram 01/14/2020. Left ventricular ejection fraction is severely diminished and is estimated at 20 to 25% There is moderate to severe mitral regurgitation There is mild to moderate aortic regurgitation There is moderate tricuspid regurgitation There is moderate pulmonary hypertension by echocardiogram there is no perica rdial effusion Telemetry overnight shows sinus rhythm, sinus tachycardia, nonsustained ventricular tachycardia Chest x-ray 01/13/2020 Small bilateral pleural effusions mild cardiomegaly Cardiac troponin I 0.028, 0.031, 0.033 BNP 5190 Creatinine is 1.47Twelve-lead EKG shows sinus rhythm at 91 bpm, left ventricular hypertrophy, borderline prolonged QT interval, repolarization abnormality Transthoracic echocardiogram 01/14/2020. Left ventricular ejection fraction is severely diminished and is estimated at 20 to 25% There is moderate to severe mitral regurgitation There is mild to moderate aortic regurgitation There is moderate tricuspid regurgitation There is moderate pulmonary hypertension by echocardiogram there is no pericardial effusion Telemetry overnight shows sinus rhythm, sinus tachycardia, nonsustained ventricular tachycardia Chest x-ray 01/13/2020 Small bilateral pleural effusions mild cardiomegaly Cardiac troponin I 0.028, 0.031, 0.033 BNP 5190 Creatinine is 1.47Twelve-lead EKG shows sinus rhythm at 91 bpm, left ventricular hypertrophy, borderline prolonged QT interval, repolarization abnormality Transthoracic echocardiogram 01/14/2020. Left ventricular ejection fraction is severely diminished and is estimated at 20 to 25% There is moderate to severe mitral regurgitation There is mild to moderate aortic regurgitation There is moderate tricuspid regurgitation There is moderate pulmonary hypertension by echocardiogram there is no pericardial effusion Telemetry overnight shows sinus rhythm, sinus tachycardia, nonsustained ventricular tachycardia Chest x-ray 01/13/2020 Small bilateral pleural effusions mild cardiomegaly Cardiac troponin I 0.028, 0.031, 0.033 BNP 5190 Creatinine is 1.47Twelve-lead EKG shows sinus rhythm at 91 bpm, left ventricular hypertrophy, borderline prolonged QT interval, repolarization abnormality Transthoracic echocardiogram 01/14/2020. Left ventricular ejection fraction is severely diminished and is estimated at 20 to 25% There is moderate to severe mitral regurgitation There is mild to moderate aortic regurgitation There is moderate tricuspid regurgitation There is moderate pulmonary hypertension by echocardiogram there is no pericardial effusion Telemetry overnight shows sinus rhythm, sinus tachycardia, nonsustained ventricular tachycardia Chest x-ray 01/13/2020 Small bilateral pleural effusions mild cardiomegaly Cardiac troponin I 0.028, 0.031, 0.033 BNP 5190 Creatinine is 1.47Twelve-lead EKG shows sinus rhythm at 91 bpm, left ventricular hypertrophy, borderline prolonged QT interval, repolarization abnormality Transthoracic echocardiogram 01/14/2020. Left ventricular ejection fraction is severely diminished and is estimated at 20 to 25% There is moderate to severe mitral regurgitation There is mild to moderate aortic regurgitation There is moderate tricuspid regurgitation There is moderate pulmonary hypertension by echocardiogram there is no pericardial effusion Telemetry overnight shows sinus rhythm, sinus tachycardia, nonsustained ventricular tachycardia Chest x-ray 01/13/2020 Small bilateral pleural effusions mild cardiomegaly Cardiac troponin I 0.028, 0.031, 0.033 BNP 5190 Creatinine is 1.47Twelve-lead EKG shows sinus rhythm at 91 bpm, left ventricular hypertrophy, borderline prolonged QT interval, repolarization abnormality Transthoracic echocardiogram 01/14/2020. Left ventricular ejection fraction is severely diminished and is estimated at 20 to 25% There is moderate to severe mitral regurgitation There is mild to moderate aortic regurgitation There is moderate tricuspid regurgitation There is moderate pulmonary hypertension by echocardiogram there is no pericardial effusion Telemetry overnight shows sinus rhythm, sinus tachycardia, nonsustained ventricular tachycardia Chest x-ray 01/13/2020 Small bilateral pleural effusions mild cardiomegaly Cardiac troponin I 0.028, 0.031, 0.033 BNP 5190 Creatinine is 1.47Twelve-lead EKG shows sinus rhythm at 91 bpm, left ventricular hypertrophy, borderline prolonged QT interval, repolarization abnormality Transthoracic echocardiogram 01/14/2020. Left ventricular ejection fraction is severely diminished and is estimated at 20 to 25% There is moderate to severe mitral regurgitation There is mild to moderate aortic regurgitation There is moderate tricuspid regurgitation There is moderate pulmonary hypertension by echocardiogram there is no pericardial effusion Telemetry overnight shows sinus rhythm, sinus tachycardia, nonsustained ventricular tachycardia Chest x-ray 01/13/2020 Small bilateral pleural effusions mild cardiomegaly Cardiac troponin I 0.028, 0.031, 0.033 BNP 5190 Creatinine is 1.47 Impressions: Chest X-Ray 01/13/20 13:28 IMPRESSION: Small bilateral pleural effusions. Mild cardiomegaly. Assessment & Plan - Diagnosis (1) Acute CHF (congestive heart failure) Qualifiers: Heart failure type: systolic Qualified Code(s): I50.21 - Acute systolic (congestive) heart failure Is this a current diagnosis for this admission?: Yes Plan: Congestive heart failure-systolic LV dysfunction with profoundly depressed ejection fraction on echocardiogram Dilated cardiomyopathy is apparent with regurgitant lesions that would fit the clinical picture of longstanding cardiomyopathy Agree with use of intravenous diuretics Watch creatinine as we diurese Probably will have to initiate guideline directed medical therapy with sacubitril/valsartan as well as metoprolol. Titrate electrolytes very closely with potassium to be between 4 to 5 mEq/L and her magnesium to be greater than 2 milligram per deciliter We will continue to watch for ectopy (2) Acute kidney injury superimposed on CKD Is this a current diagnosis for this admission?: Yes Plan: Watch creatinine as we diurese He probably has underlying chronic renal insufficiency (3) Elevated troponin Is this a current diagnosis for this admission?: Yes Plan: Likely in the setting of congestive heart failure No ischemic symptoms at the moment (4) Dilated cardiomyopathy Is this a current diagnosis for this admission?: Yes Plan: New finding of dilated cardiomyopathy Left ventricular dysfunction with ejection fraction severely depressed and is estimated at 20 to 25% with global hypokinesis Jose A suggestive of longstanding cardiomyopathy Regurgitant lesions some of which are at least moderate to severe including the mitral as well as tricuspid Patient will benefit from initiation of euvolemic status followed by normalization of renal function if possible Subsequently we will have to proceed with ischemic evaluation preferably with cardiac catheterization. I can arrange this as an outpatient Given profoundly depressed ejection fraction together with evidence of ventricular ectopy on monitor will prefer wearable defibrillator being instituted prior to discharge I will make arrangements for that. - Notes Notes: Diurese Establish euvolemia Manage electrolytes Guideline directed medical therapy for congestive heart failure and dilated cardiomyopathy Outpatient ischemic evaluation Wearable defibrillator
[2020-01-15] MEDS ORDERED: NORMAL SALINE 250 ML IV PRN ×2 (21:07→21:12)
--- NOTE | 2020-01-15 22:08 | EKG REPORT ---
SEVERITY:- ABNORMAL ECG - SINUS RHYTHM PROBABLE LEFT ATRIAL ABNORMALITY LEFT VENTRICULAR HYPERTROPHY PROLONGED QT INTERVAL : Confirmed by: Susy Estrada 15-Jan-2020 22:07:49
[2020-01-15] MEDS: ATORVASTATIN CALCIUM 40 MG TABLET PO SCH (22:09)
[2020-01-15] MEDS: METOPROLOL SUCCINATE 25 MG TAB.SR.24H PO SCH (22:09)
[2020-01-16 06:03] LABS: ANION GAP 7 (5-19); BLOOD UREA NITROGEN 30 mg/dL (7-20); CARBON DIOXIDE 27 mmol/L (22-30); CHLORIDE 102 mmol/L (98-107); GLUCOSE 91 mg/dL (75-110); POTASSIUM 3.9 mmol/L (3.6-5.0)
[2020-01-16] MEDS: METOPROLOL SUCCINATE 25 MG TAB.SR.24H PO SCH ×2 (09:42→21:52)
--- NOTE | 2020-01-16 14:50 | PDOC PROGRESS REPORT ---
Subjective Progress Note for:: 01/16/20 Subjective:: Patient seen and examined. Feels better. Orthopnea is resolved. No chest pain. No arrhythmia on Tele. BEBO Reason For Visit: HEART FAILURE Physical Exam Vital Signs: Temp Pulse Resp BP Pulse Ox 98.0 F 85 22 H 96/61 L 100 01/16/20 11:14 01/16/20 11:14 01/16/20 11:14 01/16/20 11:14 01/16/20 11:14 Intake & Output 01/15/20 01/16/20 01/17/20 06:59 06:59 06:59 Intake Total 260 1332 500 Output Total 1425 Balance 260 -93 500 Weight 77.2 kg 77.2 kg General appearance: PRESENT: cooperative, well-developed, well-nourished Head exam: PRESENT: atraumatic, normocephalic Eye exam: PRESENT: conjunctiva pink, EOMI Mouth exam: PRESENT: moist Respiratory exam: PRESENT: crackles, decreased breath sounds, prolonged e xpiratory phas, symmetrical, unlabored Cardiovascular exam: PRESENT: RRR, +S1, +S2 Pulses: PRESENT: normal radial pulses GI/Abdominal exam: PRESENT: soft Rectal exam: PRESENT: deferred Musculoskeletal exam: PRESENT: normal inspection Neurological exam: PRESENT: alert, awake, oriented to person, oriented to place, oriented to time, oriented to situation Psychiatric exam: PRESENT: appropriate affect Skin exam: PRESENT: dry, intact Results Laboratory Results: 01/13/20 15:49 01/16/20 04:41 01/15/20 01/16/20 21:44 04:41 Sodium 135.7 L Potassium 3.9 Chloride 102 Carbon Dioxide 27 Anion Gap 7 BUN 30 H Creatinine 1.59 H Est GFR ( Amer) 54 L Glucose 91 Calcium 9.0 Magnesium 2.0 Blood Type Cancelled 01/13/20 01/13/20 01/13/20 15:49 15:49 15:49 Creatine Kinase 98 Troponin I 0.028 NT-Pro-B Natriuret Pep 5190 H 01/13/20 01/14/20 18:21 18:19 Creatine Kinase Troponin I 0.031 0.033 NT-Pro-B Natriuret Pep EKG Comments: Tel SR LVEF 20% Impressions: Chest X-Ray 01/13/20 13:28 IMPRESSION: Small bilateral pleural effusions. Mild cardiomegaly. Assessment & Plan - Diagnosis (1) Acute CHF (congestive heart failure) Qualifiers: Heart failure type: systolic Qualified Code(s): I50.21 - Acute systolic (congestive) heart failure Is this a current diagnosis for this admission?: Yes Plan: Acute decompensated systolic CHF New finding of LV dysfunction Severe 20-25% GDMT for CHF and Dilated CMP Improved tremendously Watch electrolytes (2) Acute kidney injury superimposed on CKD Is this a current diagnosis for this admission?: Yes Plan: Result of diuresis Cr increased Watching now (3) Elevated troponin Is this a current diagnosis for this admission?: Yes Plan: Probably due to CHF (4) Dilated cardiomyopathy Is this a current diagnosis for this admission?: Yes Plan: New finding Will arrange for cardiac cath as out patient.
--- NOTE | 2020-01-16 17:38 | PDOC PROGRESS REPORT ---
Subjective Progress Note for:: 01/16/20 Subjective:: No adverse events overnight. No new complaints. Vital signs been stable. Eating and drinking without difficulty. He said his urine has been very dark- colored. Reason For Visit: HEART FAILURE Physical Exam Vital Signs: Temp Pulse Resp BP Pulse Ox 98.0 F 92 20 110/72 99 01/16/20 16:00 01/16/20 16:00 01/16/20 16:00 01/16/20 16:00 01/16/20 16:00 Intake & Output 01/15/20 01/16/20 01/17/20 06:59 06:59 06:59 Intake Total 260 1332 500 Output Total 1425 Balance 260 -93 500 Weight 77.2 kg 77.2 kg General appearance: PRESENT: no acute distress, well-developed, well-nourished Head exam: PRESENT: atraumatic, normocephalic Respiratory exam: PRESENT: Diminished but clear bilaterally. ABSENT: rales, rhonchi, wheezes, crackles Cardiovascular exam: PRESENT: RRR. ABSENT: diastolic murmur, rubs, systolic murmur GI/Abdominal exam: PRESENT: normal bowel sounds, soft. ABSENT: distended, guarding, mass, organolmegaly, rebound, tenderness Extremities exam: PRESENT: full ROM. ABSENT: calf tenderness, clubbing, pedal edema Neurological exam: PRESENT: alert, awake, oriented to person, oriented to place, oriented to time, oriented to situation, CN II-XII grossly intact. ABSENT: motor sensory deficit Results Laboratory Results: 01/13/20 15:49 01/16/20 04:41 01/15/20 01/16/20 21:44 04:41 Sodium 135.7 L Potassium 3.9 Chloride 102 Carbon Dioxide 27 Anion Gap 7 BUN 30 H Creatinine 1.59 H Est GFR ( Amer) 54 L Glucose 91 Calcium 9.0 Magnesium 2.0 Blood Type Cancelled 01/13/20 01/13/20 01/13/20 15:49 15:49 15:49 Creatine Kinase 98 Troponin I 0.028 NT-Pro-B Natriuret Pep 5190 H 01/13/20 01/14/20 18:21 18:19 Creatine Kinase Troponin I 0.031 0.033 NT-Pro-B Natriuret Pep Impressions: Chest X-Ray 01/13/20 13:28 IMPRESSION: Small bilateral pleural effusions. Mild cardiomegaly. Assessment and Plan - Diagnosis (1) Acute CHF (congestive heart failure) Qualifiers: Heart failure type: systolic Qualified Code(s): I50.21 - Acute systolic (co ngestive) heart failure Is this a current diagnosis for this admission?: Yes (2) Acute kidney injury superimposed on CKD Is this a current diagnosis for this admission?: Yes (3) Orthopnea Is this a current diagnosis for this admission?: Yes (4) Shortness of breath Is this a current diagnosis for this admission?: Yes - Plan Summary Summary: He is on room air now and is not short of breath. Coronavirus testing was negative. He said he still feels more comfortable sitting upright or sleeping with the head of the bed elevated. I have started him on Toprol XL because he was apparently having some frequent runs of tachycardia, up to 14 beats, and the Toprol seems to have addressed this. Dr. Landeros recommended starting Entresto. He is probably going to get an outpatient cardiac catheterization. His insurance is apparently not current and his Medicaid is pending. For this reason he will be unable to get a LifeVest now, but once his Medicaid comes through he can be fitted for one as an outpatient. Fortunately he is not having any more runs of ventricular tachycardia. Another concern is going to be his Entresto, because he probably will not be able to afford that either. If that is the case, we will continue him on lisinopril until his insurance is approved. We are watching his creatinine right now to make sure it starts to trend back down. Once he has a downward trend, he can be discharged home. - Time Time Spent with patient: 15-24 minutes Anticipated Discharge Disposition: Home, Self Care Anticipated Discharge Timeframe: within 48 hours
[2020-01-16] MEDS: ATORVASTATIN CALCIUM 40 MG TABLET PO SCH (21:52)
[2020-01-16] MEDS: SACUBITRIL/VALSARTAN 24 MG/26 MG TABLET PO SCH (21:52)
[2020-01-17] MEDS ORDERED: FUROSEMIDE 20 MG TABLET PO SCH (10:00)
[2020-01-17] MEDS: METOPROLOL SUCCINATE 25 MG TAB.SR.24H PO SCH (10:37)
[2020-01-17 10:39] LABS: ANION GAP 6 (5-19); BLOOD UREA NITROGEN 27 mg/dL (7-20); CALCIUM 9.1 mg/dL (8.4-10.2); CARBON DIOXIDE 29 mmol/L (22-30); CHLORIDE 102 mmol/L (98-107); GLUCOSE 118 mg/dL (75-110); POTASSIUM 4.1 mmol/L (3.6-5.0)
[2020-01-17] MEDS: SACUBITRIL/VALSARTAN 24 MG/26 MG TABLET PO SCH (10:44)
[2020-01-17 12:31] VITALS: BP 94/67
--- NOTE | 2020-01-17 16:21 | PDOC DISCHARGE SUMMARY ---
Impression - Admit/DC Date/PCP Admission Date/Primary Care Provider: 01/13/20 20:03 Discharge Date: 01/17/20 - Discharge Diagnosis (1) Acute CHF (congestive heart failure) Is this a current diagnosis for this admission?: Yes (2) Acute kidney injury superimposed on CKD Is this a current diagnosis for this admission?: Yes (3) Orthopnea Is this a current diagnosis for this admission?: Yes (4) Shortness of breath Is this a current diagnosis for this admission?: Yes - Assessment Summary: He is on room air now and is not short of breath. Coronavirus testing was negative. He said he still feels more comfortable sitting upright or sleeping with the head of the bed elevated. I have started him on Toprol XL because he was apparently having some frequent runs of tachycardia, up to 14 beats, and the Toprol seems to have addressed this. Dr. Martin recommended starting Entresto. He is probably going to get an outpatient cardiac catheterization. His insurance is apparently not current and his Medicaid is pending. For this reason he will be unable to get a LifeVest now, but once his Medicaid comes through he can be fitted for one as an outpatient. Fortunately he is not having any more runs of ventricular tachycardia. Another concern is going to be his Entresto, because he probably will not be able to afford that either. If that is the case, we will continue him on lisinopril until his insurance is approved. We are watching his creatinine right now to make sure it starts to trend back down. Once he has a downward trend, he can be discharged home. - Additional Information Resuscitation Status: Full Code Discharge Diet: Cardiac Discharge Activity: Activity As Tolerated, Balance Activity w/Rest, Weigh Daily Referrals: SANDRA MARTIN MD [ACTIVE STAFF] - 01/21/20 1:00 pm Prescriptions: Furosemide [Lasix 20 mg Tablet] 20 mg PO DAILY #30 tablet Atorvastatin Calcium [Lipitor 40 mg Tablet] 40 mg PO QHS #30 tablet Lisinopril [Prinivil 5 mg Tablet] 5 mg PO DAILY #30 tablet Metoprolol Succinate [Toprol Xl 25 mg Tab.sr] 12.5 mg PO Q12 #30 tab.sr.24h Home Medications: Atorvastatin Calcium [Lipitor 40 mg Tablet] 40 mg PO QHS #30 tablet 01/17/20 Furosemide [Lasix 20 mg Tablet] 20 mg PO DAILY #30 tablet 01/17/20 Lisinopril [Prinivil 5 mg Tablet] 5 mg PO DAILY #30 tablet 01/17/20 Metoprolol Succinate [Toprol Xl 25 mg Tab.sr] 12.5 mg PO Q12 #30 tab.sr.24h 01/17/20 History of Present Illiness History of Present Illness: CHRISSIE HORN is a 59 year old male with no known active medical issues besides his presentation and who does not currently follow with any physician for the past few years. He presents today for evaluation of shortness of breath and cough. He states that he has been having shortness of breath for about 3 weeks now. Describes it as being more like orthopnea which is worse when he lays down at nighttime. Over the past week, he felt he had come down with a cold because he used to start coughing at nighttime whenever he laid down. He denied any rhinorrhea, nasal congestion, fever or chills at that time. He also has mild lower extremity edema which he has noted. His symptoms a week ago were associated with some pleuritic chest pain. He denies any sick contacts. He denies PND. He does have family history of heart disease in his father, mother and his brother. He came to the ER to be evaluated for possible COVID-19. Work-up in ER notable for elevated BNP, small bilateral pleural effusions. Ambulated in the ER and his heart rate shot up to the 120s. Hospital Course Hospital Course: His echocardiogram was significant for numerous findings, including LVEF 20 to 25%, moderate to severely reduced right ventricular systolic function, moderate tricuspid regurgitation, moderate to severe pulmonary hypertension. He responded well to medical therapy and diuresis. He was strongly encouraged to stop smoking. We have medically optimized him as well as we can given the limitations with his lack of insurance. We have sent him home on Toprol-XL, lisinopril, and Lasix. We would prefer for him to be on Entresto but right now that is prohibitively expensive for him. Dr. Martin is going to try to get him into a patient assistance program for Entresto. He does have Medicaid pending. He is going to see Dr. Martin in the office who is going to try to set him up for cardiac catheterization. We would also like for him to have a LifeVest but he cannot afford at this time. Once his Medicare is approved he can be fitted for this. His creatinine had bumped little bit a couple of days ago from the diuresis, but his creatinine has plateaued on oral Lasix after coming off IV formulation. He has follow-up arranged in 5 days. His labs and examination were reassuring and he was discharged in stable condition. Physical Exam Vital Signs: Temp Pulse Resp BP Pulse Ox 97.3 F 74 18 110/72 99 01/17/20 12:12 01/17/20 12:12 01/17/20 12:12 01/17/20 12:12 01/17/20 12:12 Intake & Output 01/16/20 01/17/20 01/18/20 06:59 06:59 06:59 Intake Total 1332 1590 Output Total 1425 1250 Balance -93 340 Weight 77.2 kg 77.9 kg General appearance: PRESENT: no acute distress, well-developed, well-nourished Head exam: PRESENT: atraumatic, normocephalic Respiratory exam: PRESENT: Diminished but clear bilaterally. ABSENT: rales, rhonchi, wheezes, crackles Cardiovascular exam: PRESENT: RRR. ABSENT: diastolic murmur, rubs, systolic murmur GI/Abdominal exam: PRESENT: normal bowel sounds, soft. ABSENT: distended, guarding, mass, organolmegaly, rebound, tenderness Extremities exam: PRESENT: full ROM. ABSENT: calf tenderness, clubbing, pedal edema Neurological exam: PRESENT: alert, awake, oriented to person, oriented to place, oriented to time, oriented to situation, CN II-XII grossly intact. ABSENT: motor sensory deficit Results Laboratory Results: WBC 5.4 10^3/uL (4.0-10.5) 01/13/20 15:49 RBC 4.19 10^6/uL (4.35-5.55) L 01/13/20 15:49 Hgb 12.1 g/dL (13.5-17.0) L 01/13/20 15:49 Hct 37.3 % (37.9-51.0) L 01/13/20 15:49 MCV 89 fl (80-97) 01/13/20 15:49 MCH 28.9 pg (27.0-33.4) 01/13/20 15:49 MCHC 32.5 g/dL (32.0-36.0) 01/13/20 15:49 RDW 16.4 % (11.5-14.0) H 01/13/20 15:49 Plt Count 221 10^3/uL (150-450) 01/13/20 15:49 Lymph % (Auto) Not Reportable 01/13/20 15:49 Kenedy % (Auto) Not Reportable 01/13/20 15:49 Eos % (Auto) Not Reportable 01/13/20 15:49 Baso % (Auto) Not Reportable 01/13/20 15:49 Absolute Neuts (auto) Not Reportable 01/13/20 15:49 Absolute Lymphs (auto) Not Reportable 01/13/20 15:49 Absolute Monos (auto) Not Reportable 01/13/20 15:49 Absolute Eos (auto) Not Reportable 01/13/20 15:49 Absolute Basos (auto) Not Reportable 01/13/20 15:49 Total Counted 100 01/13/20 15:49 Seg Neutrophils % Not Reportable 01/13/20 15:49 Seg Neuts % (Manual) 58 % (42-78) 01/13/20 15:49 Lymphocytes % (Manual) 31 % (13-45) 01/13/20 15:49 Atypical Lymphs % 2 % (0) 01/13/20 15:49 Monocytes % (Manual) 5 % (3-13) 01/13/20 15:49 Eosinophils % (Manual) 4 % (0-6) 01/13/20 15:49 Basophils % (Manual) 0 % (0-2) 01/13/20 15:49 Abs Neuts (Manual) 3.1 10^3/uL (1.7-8.2) 01/13/20 15:49 Abs Lymphs (Manual) 1.8 10^3/uL (0.5-4.7) 01/13/20 15:49 Abs Monocytes (Manual) 0.3 10^3/uL (0.1-1.4) 01/13/20 15:49 Absolute Eos (Manual) 0.2 10^3/uL (0.0-0.6) 01/13/20 15:49 Abs Basophils (Manual) 0.0 10^3/uL (0.0-0.2) 01/13/20 15:49 Platelet Comment INCREASED 01/13/20 15:49 Poikilocytosis 1+ 01/13/20 15:49 Anisocytosis 2+ 01/13/20 15:49 Ovalocytes SLIGHT 01/13/20 15:49 Helmet Cells SLIGHT 01/13/20 15:49 Kerby Cells SLIGHT 01/13/20 15:49 Sodium 136.7 mmol/L (137-145) L 01/17/20 09:55 Potassium 4.1 mmol/L (3.6-5.0) 01/17/20 09:55 Chloride 102 mmol/L (98-107) 01/17/20 09:55 Carbon Dioxide 29 mmol/L (22-30) 01/17/20 09:55 Anion Gap 6 (5-19) 01/17/20 09:55 BUN 27 mg/dL (7-20) H 01/17/20 09:55 Creatinine 1.46 mg/dL (0.52-1.25) H 01/17/20 09:55 Est GFR ( Amer) > 60 (>60) 01/17/20 09:55 Est GFR (MDRD) Non-Af 50 (>60) L 01/17/20 09:55 Glucose 118 mg/dL (75-110) H 01/17/20 09:55 Hemoglobin A1c % 5.3 % (4.7-6.0) 01/14/20 06:10 Calcium 9.1 mg/dL (8.4-10.2) 01/17/20 09:55 Magnesium 2.0 mg/dL (1.6-2.3) 01/16/20 04:41 Total Bilirubin 0.7 mg/dL (0.2-1.3) 01/13/20 15:49 Direct Bilirubin 0.2 mg/dL (0.0-0.4) 01/13/20 15:49 Neonat Total Bilirubin Not Reportable 01/13/20 15:49 Neonat Direct Bilirubin Not Reportable 01/13/20 15:49 Neonat Indirect Bili Not Reportable 01/13/20 15:49 AST 32 U/L (17-59) 01/13/20 15:49 ALT 41 U/L (<50) 01/13/20 15:49 Alkaline Phosphatase 105 U/L (38-126) 01/13/20 15:49 Creatine Kinase 98 U/L (55-170) 01/13/20 15:49 Troponin I 0.033 ng/mL 01/14/20 18:19 NT-Pro-B Natriuret Pep 5190 pg/mL (<125) H 01/13/20 15:49 Total Protein 6.9 g/dL (6.3-8.2) 01/13/20 15:49 Albumin 3.8 g/dL (3.5-5.0) 01/13/20 15:49 Triglycerides 59 mg/dL (<150) 01/14/20 06:10 Cholesterol 147.48 mg/dL (0-200) 01/14/20 06:10 LDL Cholesterol Direct 36 mg/dL (<100) 01/14/20 06:10 VLDL Cholesterol 12.0 mg/dL (10-31) 01/14/20 06:10 HDL Cholesterol 79 mg/dL (>40) 01/14/20 06:10 TSH 1.58 uIU/mL (0.47-4.68) 01/14/20 06:10 PTH Intact 60.2 pg/mL (10.0-65.0) 01/14/20 06:10 COVID-19 Source See comment 01/13/20 18:34 COVID-19 (MARIAJOSE) Not Detected (Not Detect) 01/13/20 18:34 Influenza A (Rapid) NEGATIVE (NEGATIVE) 01/13/20 15:49 Influenza B (Rapid) NEGATIVE (NEGATIVE) 01/13/20 15:49 Blood Type Cancelled 01/15/20 21:44 01/13/20 01/13/20 01/13/20 15:49 15:49 18:21 Troponin I 0.028 0.031 NT-Pro-B Natriuret Pep 5190 H 01/14/20 18:19 Troponin I 0.033 NT-Pro-B Natriuret Pep Impressions: Chest X-Ray 01/13/20 13:28 IMPRESSION: Small bilateral pleural effusions. Mild cardiomegaly. Plan Time Spent: Greater than 30 Minutes Stroke Is this a Stroke Patient?: No Acute Heart Failure Is this a Heart Failure Patient?: Yes Documentation of LVEF assessment?: Yes LVEF: LVEF Less Than or Equal to 35% Anticoagulant Therapy: N/A Discharged on Evidence-Based Beta Blockers: Yes Discharged on ARNI?: No-Document Contraindications Reason(s) not discharged on ARNI: Other ARNI Reason - Other: Financial reasons Discharged on ARB?: No-document contraindications Reason(s) not Discharged on ARB: Other ARB Reason - Other: Being discharged on MADELEINE inhibitor Discharged on ACEI?: Yes For LVEF <35%, discharged on Aldosterone Antagonist?: No-document contraincations Reason(s) not discharged on Aldosterone Antagonist: Other Aldosterone Antagonist Reason - Other: Not recommended by cardiology Follow-up Appointment scheduled within 7 days?: Yes
== END 2020-01-17 12:45 | disposition home or self-care (01) | DRG 292 ==
LOC: ER 12:50 → EH 20:03 → 3W 01-14 12:09 → 4N 01-15 16:19
PROVIDERS: ADMIT Internal Medicine; ATTEND Family Medicine
PROC: B24BZZZ Ultrasonography of Heart with Aorta (ICD-10-PCS; principal; 2020-01-14)
DX: I50.21 Acute systolic (congestive) heart failure (principal); N17.9 Acute kidney failure, unspecified; I42.0 Dilated cardiomyopathy; M19.90 Unspecified osteoarthritis, unspecified site; F17.200 Nicotine dependence, unspecified, uncomplicated; Z20.828 Contact with and (suspected) exposure to other viral communicable diseases; R79.89 Other specified abnormal findings of blood chemistry; N18.9 Chronic kidney disease, unspecified; R00.0 Tachycardia, unspecified; I07.1 Rheumatic tricuspid insufficiency; I27.20 Pulmonary hypertension, unspecified; Z82.49 Family history of ischemic heart disease and other diseases of the circulatory system; Z59.7 Insufficient social insurance and welfare support; Z88.0 Allergy status to penicillin
CPT/HCPCS: 36415; 71045; 80048; 80053; 80061; 82550; 83036; 83735; 83880; 83970; 84443; 84484; 85025; 87635; 87804; 93005; 93010; 93306; 99285; C9803; J1650; J1940; J3490

== ENCOUNTER 2020-02-26 13:14 | Emergency (ER) | payer SELFPAY ==
--- NOTE | 2020-02-26 13:38 | ER Document Report ---
ED Medical Screen (RME) - General Chief Complaint: Chest Pain Stated Complaint: CHEST PAIN, SHORTNESS OF BREATH Time Seen by Provider: 02/26/20 13:34 Information source: Patient Notes: Patient presents complaining of difficulty breathing for the past month. Patient reports abdominal distention. Patient denies any chest pain. Patient denies any fever. Patient states he is unable to lie flat at nighttime due to his difficulty breathing. Patient states he was just diagnosed with heart failure last month. Patient denies any nausea or vomiting. Patient does report shortness of breath that is worse with exertion. Review of previous admission demonstrates EF of 20 to 25%. I have greeted and performed a rapid initial assessment of this patient. A comprehensive ED assessment and evaluation of the patient, analysis of test results and completion of the medical decision making process will be conducted by additional ED providers. TRAVEL OUTSIDE OF THE [place] IN LAST 30 DAYS: No - Related Data Allergies/Adverse Reactions: Penicillins Allergy (Verified 01/13/20 13:29) HIVES, RASH, FEELS LIKE ON FIRE Past Medical History - Past Medical History Cardiac Medical History: Denies: Hx Coronary Artery Disease, Hx Heart Attack, Hx Hypertension Pulmonary Medical History: Denies: Hx Asthma, Hx Bronchitis, Hx COPD, Hx Pneumonia, Hx Tuberculosis Neurological Medical History: Denies: Hx Cerebrovascular Accident, Hx Seizures Endocrine Medical History: Denies: Hx Diabetes Mellitus Type 1, Hx Diabetes Mellitus Type 2 Renal/ Medical History: Denies: Hx Peritoneal Dialysis GI Medical History: Denies: Hx Hepatitis, Hx Hiatal Hernia, Hx Ulcer Musculoskeltal Medical History: Reports Hx Arthritis, Reports Hx Musculoskeletal Trauma Psychiatric Medical History: Denies: Hx Depression Traumatic Medical History: Reports: Hx Fractures - C-spinew FX's Infectious Medical History: Denies: Hx Hepatitis Past Surgical History: Reports: Hx Appendectomy, Hx Orthopedic Surgery - NECK SURGERY, RIGHT FOOT SURGERY. Denies: Hx Open Heart Surgery, Hx Pacemaker - Immunizations Hx Diphtheria, Pertussis, Tetanus Vaccination: Yes Physical Exam - Vital signs Vitals: Temp Pulse Resp BP Pulse Ox 97.6 F 102 H 20 122/90 H 99 02/26/20 13:27 02/26/20 13:27 02/26/20 13:27 02/26/20 13:27 02/26/20 13:27 - Respiratory Respiratory status: Tachypnea Chest status: Nontender Breath sounds: Rales - Lower lobe Chest palpation: Normal Course - Vital Signs Vital signs: Temp Pulse Resp BP Pulse Ox 97.6 F 102 H 20 122/90 H 99 02/26/20 13:27 02/26/20 13:27 02/26/20 13:27 02/26/20 13:27 02/26/20 13:27
--- NOTE | 2020-02-26 14:13 | RADIOLOGY REPORT (SQ) ---
EXAM DESCRIPTION: CHEST SINGLE VIEW IMAGES COMPLETED DATE/TIME: 02/26/2020 1:59 pm REASON FOR STUDY: sob COMPARISON: 01/13/2020 EXAM PARAMETERS: NUMBER OF VIEWS: One view. TECHNIQUE: Single frontal radiographic view of the chest acquired. RADIATION DOSE: NA LIMITATIONS: None. FINDINGS: LUNGS AND PLEURA: No focal consolidation. Possible trace bilateral effusions. No pneumot horax. MEDIASTINUM AND HILAR STRUCTURES: No masses. Contour normal. HEART AND VASCULAR STRUCTURES: Enlarged cardiac silhouette with central vascular congestion. No over t edema. BONES: No acute findings. HARDWARE: Cervical fusion hardware, partially visualized. Right humeral bone anchor. OTHER: No other significant finding. IMPRESSION: Enlarged cardiac silhouette with central vascular congestion. No overt pulmonary edema. TECHNICAL DOCUMENTATION: JOB ID: [id number] [employer]- All Rights Reserved Reading location - IP/workstation name: [email or web address]
[2020-02-26 14:42] LABS: ABSOLUTE BASOPHILS # (AUTO) 0.1 10^3/uL (0.0-0.2); ABSOLUTE EOSINOPHILS # (AUTO) 0.2 10^3/uL (0.0-0.6); ABSOLUTE LYMPHOCYTES (AUTO) 1.7 10^3/uL (0.5-4.7); ABSOLUTE MONOCYTES (AUTO) 0.4 10^3/uL (0.1-1.4); ABSOLUTE NEUT (AUTO) 3.5 10^3/uL (1.7-8.2); BASOPHILS % (AUTO) 1.1 % (0-2); EOSINOPHILS % (AUTO) 3.9 % (0-6); HEMATOCRIT 37.8 % (37.9-51.0); HEMOGLOBIN 12.3 g/dL (13.5-17.0); LYMPHOCYTES % (AUTO) 28.6 % (13-45); MEAN CORPUSCULAR HEMOGLOBIN 28.2 pg (27.0-33.4); MEAN CORPUSCULAR HGB CONC 32.6 g/dL (32.0-36.0); MEAN CORPUSCULAR VOLUME 87 fl (80-97); MONOCYTES % (AUTO) 7.4 % (3-13); RED BLOOD COUNT 4.37 10^6/uL (4.35-5.55); RED CELL DISTRIBUTION WIDTH 16.9 % (11.5-14.0); TOTAL CELLS COUNTED % (AUTO) 100 %; WHITE BLOOD COUNT 5.9 10^3/uL (4.0-10.5)
[2020-02-26 14:58] LABS: ALBUMIN 3.7 g/dL (3.5-5.0); ALKALINE PHOSPHATASE 132 U/L (38-126); ANION GAP 7 (5-19); ASPARTATE AMINO TRANSFERASE 47 U/L (17-59); BILIRUBIN,DIRECT 0.1 mg/dL (0.0-0.4); BILIRUBIN,TOTAL 0.7 mg/dL (0.2-1.3); BLOOD UREA NITROGEN 27 mg/dL (7-20); CALCIUM 9.5 mg/dL (8.4-10.2); CARBON DIOXIDE 22 mmol/L (22-30); CHLORIDE 109 mmol/L (98-107); GLUCOSE 128 mg/dL (75-110); POTASSIUM 4.8 mmol/L (3.6-5.0)
[2020-02-26 15:05] LABS: PLATELET COUNT 237 10^3/uL (150-450)
[2020-02-26 15:07] LABS: ANISOCYTOSIS 2+; HYPOCHROMASIA 1+; OVALOCYTES 1+; PLATELET CLUMPS PRESENT; PLATELET COMMENT ADEQUATE; TARGET CELLS 1+; TEAR DROP CELLS 1+
[2020-02-26 15:09] LABS: TROPONIN I 0.022 ng/mL
--- NOTE | 2020-02-26 17:11 | ER Document Report ---
ED Cardiac - General Chief Complaint: Chest Pain Stated Complaint: CHEST PAIN, SHORTNESS OF BREATH Time Seen by Provider: 02/26/20 13:34 Notes: Patient presents to the ER for evaluation of intermittent epigastric pain with significant shortness of breath and upper abdominal distention that has gradually worsened over the last 2 days. The patient states he can feel his pulse in his abdomen. The patient was diagnosed with congestive heart failure on 13 January. He did have an echocardiogram here with an EF of 20 to 25%. He did have a heart cath last Monday in [place] which he reports as negative. The patient states the shortness of breath is worse with activity. He also has significant orthopnea. He has had 2 negative Covid swabs this month. His tooth cutter pinion is Dr. Tigre abbott in [place]. He denies fever. He denies na usea or vomiting. He denies diarrhea. He denies cough or congestion. Nursing notes reviewed and past medical, social, and family histories reviewed and validated. TRAVEL OUTSIDE OF THE [place] IN LAST 30 DAYS: No - Related Data Allergies/Adverse Reactions: Penicillins Allergy (Verified 02/26/20 14:25) HIVES, RASH, FEELS LIKE ON FIRE Home Medications: lasix, propranolol, baby asa, Past Medical History - General Information source: Patient - Social History Smoking Status: Current Some Day Smoker Cigarette use (# per day): Yes - 10-20 Chew tobacco use (# tins/day): No Smoking Education Provided: Yes Frequency of alcohol use: None Drug Abuse: None Lives with: Family Family History: CAD - In his mother and brother, Other - Congestive heart failure in father Patient has suicidal ideation: No Patient has homicidal ideation: No - Past Medical History Cardiac Medical History: Reports: Hx Congestive Heart Failure, Hx Hypercholester olemia, Hx Hypertension Denies: Hx Coronary Artery Disease, Hx Heart Attack Pulmonary Medical History: Reports: None Denies: Hx Asthma, Hx Bronchitis, Hx COPD, Hx Pneumonia, Hx Tuberculosis EENT Medical History: Reports: None Neurological Medical History: Reports: None. Denies: Hx Cerebrovascular Accident, Hx Seizures Endocrine Medical History: Reports: None. Denies: Hx Diabetes Mellitus Type 1, Hx Diabetes Mellitus Type 2 Renal/ Medical History: Reports: None. Denies: Hx Peritoneal Dialysis Malignancy Medical History: Reports None GI Medical History: Reports: None. Denies: Hx Hepatitis, Hx Hiatal Hernia, Hx U lcer Musculoskeletal Medical History: Reports Hx Arthritis, Reports Hx Musc uloskeletal Trauma Skin Medical History: Reports None Psychiatric Medical History: Reports: None Denies: Hx Depression Traumatic Medical History: Reports: Hx Fractures - C-spinew FX's Infectious Medical History: Reports: None. Denies: Hx Hepatitis Past Surgical History: Reports: Hx Appendectomy, Hx Orthopedic Surgery - NECK SURGERY, RIGHT FOOT SURGERY. Denies: Hx Open Heart Surgery, Hx Pacemaker - Immunizations Immunizations up to date: Yes Hx Diphtheria, Pertussis, Tetanus Vaccination: Yes Review of Systems - Review of Systems Notes: Constitutional: Negative for fever. HENT: Negative for sore throat. Eyes: Negative for visual changes. Cardiovascular: Negative for substernal chest pain. Respiratory: Negative for shortness of breath. Gastrointestinal: Positive epigastric pain. Negative vomiting or diarrhea. Genitourinary: Negative for dysuria. Musculoskeletal: Negative for back pain. Skin: Negative for rash. Neurological: Negative for headaches, weakness or numbness. 10 point ROS negative except as marked above and in HPI. Physical Exam - Vital signs Vitals: Temp Pulse Resp BP Pulse Ox 97.6 F 102 H 20 122/90 H 99 02/26/20 13:27 02/26/20 13:27 02/26/20 13:27 02/26/20 13:27 02/26/20 13:27 - Notes Notes: CONSTITUTIONAL: Well appearing. No acute distress. SKIN: Warm, dry, and intact without rash EYES: Extraocular movements are grossly intact, clear conjunctiva HENT: Normocephalic, atraumatic, moist mucus membranes NECK: No obvious swelling, normal range of motion PULMONARY: Normal chest rise and fall. Breath sounds clear and equal bilaterally. No respiratory distress or stridor CARDIOVASCULAR: Regular rate. No murmurs, rubs, gallops. Distal extremities are warm and well perfused. ABDOMINAL: The abdomen is soft. There is tenderness palpation of the epigastrium. NEUROLOGIC: Normal speech, moves all extremities. Cranial nerves are within normal limits. MUSCULOSKELETAL: No gross deformities, atraumatic PSYCHIATRIC: Normal mood and affect Course - Re-evaluation Re-evalutation: 02/26/20 19:51 Rechecked patient. Discussed with patient: results, diagnosis, treatment plan, and need for follow-up. Return to the emergency department warnings were given. All questions and concerns were addressed. The plan is agreed with and understood. Patient is stable and ready for discharge. - Vital Signs Vital signs: Temp Pulse Resp BP Pulse Ox 99.0 F 102 H 26 H 136/102 H 94 02/26/20 19:01 02/26/20 13:27 02/26/20 19:01 02/26/20 19:01 02/26/20 19:01 - Laboratory Result Diagrams: 02/26/20 14:20 02/26/20 14:20 Laboratory results interpreted by me: 02/26/20 02/26/20 02/26/20 14:20 14:20 14:20 Hgb 12.3 L Hct 37.8 L RDW 16.9 H Chloride 109 H BUN 27 H Creatinine 1.53 H Est GFR ( Amer) 57 L Est GFR (MDRD) Non-Af 47 L Glucose 128 H ALT 126 H Alkaline Phosphatase 132 H NT-Pro-B Natriuret Pep 41420 H - Diagnostic Test Radiology reviewed: Reports reviewed - EKG Interpretation by Me EKG shows normal: Sinus rhythm [place]/QRS: Left axis deviation - Consults Admission Consult Time consulted: 19:49 Reason for consultation: 02/26/20 19:[address] Dorsey to discuss possible admission of this patient. He suggests that I consult the tooth cutter pinion Dr. Martin. I immediately consulted Dr. Martin who feels that there is very little benefit to admission. The patient did have a negative heart cath with Dr. Martin last week. Dr. Martin would like me to increase the Lasix dose to 20 mg p.o. twice daily and begin Aldactone 25 mg daily. He will follow up with Ildefonso on Monday morning in his office. I discussed the plan with the patient who is agreeable with the disposition. Discharge - Discharge Clinical Impression: Congestive heart failure Qualifiers: Heart failure type: unspecified Heart failure chronicity: acute on chronic Qualified Code(s): I50.9 - Heart failure, unspecified Condition: Stable Disposition: HOME, SELF-CARE Instructions: Congestive Heart Failure ([facility]) Additional Instructions: Increase your Lasix dose to 20 mg twice daily. We will also begin you on Aldactone to be taken daily. Prescriptions: Spironolactone [Aldactone 25 mg Tablet] 25 mg PO DAILY #30 tablet Referrals: SANDRA MARTIN MD [ACTIVE STAFF] - Follow up as needed
--- NOTE | 2020-02-26 18:11 | RADIOLOGY REPORT (SQ) ---
EXAM DESCRIPTION: CT ABD/PELVIS WITH IV ONLY IMAGES COMPLETED DATE/TIME: 02/26/2020 5:49 pm REASON FOR STUDY: pulsatile epigastric pain COMPARISON: CTs of the chest, abdomen and pelvis from 07/17/2011. TECHNIQUE: CT scan of the abdomen and pelvis performed using helical scanning technique with dynamic intravenous contrast injection. No oral contrast. Images reviewed with lung, soft tissue, and bone windows. Reconstructed coronal and sagittal MPR images reviewed. Delayed images for evaluation of the urinary system also acquired. All images stored on PACS. All CT scanners at this facility use dose modulation, iterative reconstruction, and/or weight based d osing when appropriate to reduce radiation dose to as low as reasonably achievable (ALARA). [facility]: Dose Right [facility]: CareDose [facility]: Dose Right [facility]: Teradose 4D [facility]: [email or web address] CONTRAST TYPE AND DOSE: 88 mL Omnipaque 300- low osmolar. RENAL FUNCTION: Creatinine 1.53 milligrams/deciliter LIMITATIONS: None. FINDINGS: LOWER CHEST: Refer to the separate report of the CT of the chest. LIVER: There is reflux of the injected contrast into the hepatic veins. The low-attenuation lesion i n the left (image 97 of series 2) is considered too small to characterize. SPLEEN: No splenomegaly or splenic mass. PANCREAS: No acute gross abnormality of the pancreas. GALLBLADDER: No acute gross abnormality of the gallbladder. ADRENAL GLANDS: No mass or asymmetry. RIGHT KIDNEY AND URETER: Caliceal calculi. There is no hydronephrosis, hydronephrosis, hydroureter o r ureterolithiasis. The subcentimeter low-attenuation lesion that projects from the anterior cortex of the lower pole of the kidney (image 107 of series 3) is considered too small to characterize. LEFT KIDNEY AND URETER: No solid mass, hydronephrosis, nephrolithiasis, hydroureter or ureterolithias is. AORTA AND VESSELS: No aneurysm or dissection of the abdominal aorta. The iliac arteries are patent. RETROPERITONEUM: No retroperitoneal adenopathy, hemorrhage or mass. BOWEL AND PERITONEAL CAVITY: No bowel obstruction, bowel wall thickening or pericolonic/ perienteric inflammation. No mesenteric adenopathy, free intraperitoneal fluid or mesenteric/ omental inflammati on APPENDIX: There are surgical clips in the right lower quadrant - correlate for prior appendectomy. PELVIS: No acute abnormality. ABDOMINAL WALL: No mass or hernia. BONES: Degenerative spondylosis and facet joint arthropathy of the lumbar spine. There is no acute f racture osseous lesion. OTHER: No other findings. IMPRESSION: 1. No acute intra-abdominal abnormality. 2. Right-sided nephrolithiasis without associated hydronephrosis. TECHNICAL DOCUMENTATION: JOB ID: [id number] Quality ID # [id number]: Final reports with documentation of one or more dose reduction techniques (e.g., Au tomated exposure control, adjustment of the mA and/or kV according to patient size, use of iterative reconstruction technique) 2010 [employer]- All Rights Reserved Reading location - IP/workstation name: [email or web address]
--- NOTE | 2020-02-26 18:17 | RADIOLOGY REPORT (SQ) ---
EXAM DESCRIPTION: CT CHEST WITH IMAGES COMPLETED DATE/TIME: 02/26/2020 5:49 pm REASON FOR STUDY: shortness of breath COMPARISON: None. TECHNIQUE: CT scan of the chest performed using helical scanning technique with dynamic intravenous contrast injection. Images reviewed with lung, soft tissue and bone windows. Reconstructed coronal and sagittal MPR and MIP images reviewed. All images stored on PACS. All CT scanners at this facility use dose modulation, iterative reconstruction, and/or weight based d osing when appropriate to reduce radiation dose to as low as reasonably achievable (ALARA). [facility]: Dose Right [facility]: CareDose [facility]: Dose Right [facility]: Teradose 4D [facility]: Ninite CONTRAST TYPE AND DOSE: Contrast/concentration: Isovue 300.00 mmol/ml; Total Contrast Delivered: 88. 0 ml; Total Saline Delivered: 59.2 ml RENAL FUNCTION: Creatinine 1.53 milligrams/deciliter. RADIATION DOSE: CT Rad equipment meets quality standard of care and radiation dose reduction techniq ues were employed. CTDIvol: 5.9 - 10.6 mGy. DLP: 1146 mGy-cm. LIMITATIONS: None. FINDINGS: LUNGS AND PLEURA: The trachea main bronchi are patent. There is mild bronchial wall thick ening without associated bronchiectasis or segmental mucus plugging. The interlobular septa are thic kened and there are bilateral pleural effusions (right greater than left). There is no consolidation ground-glass opacification or pneumothorax. HILAR AND MEDIASTINAL STRUCTURES: No adenopathy or mass. HEART AND VASCULAR STRUCTURES: Suboptimal contrast opacification of the thoracic aorta. There are no filling defects within the main, right and left pulmonary arteries. The heart is enlarged and there is reflux of contrast into the IVC and hepatic veins. HARDWARE: None in the chest. UPPER ABDOMEN: Refer to the separate report of the CT of the abdomen. THYROID AND OTHER SOFT TISSUES: No adenopathy or mass BONES: No acute abnormality. OTHER: No other findings. IMPRESSION: Cardiomegaly, bilateral pleural effusions and thickening of the bronchial tsai and inte rlobular septa. Correlation with clinical findings for signs and symptoms of CHF/interstitial edema is recommended. TECHNICAL DOCUMENTATION: JOB ID: [id number] Quality ID # [id number]: Final reports with documentation of one or more dose reduction techniques (e.g., Au tomated exposure control, adjustment of the mA and/or kV according to patient size, use of iterative reconstruction technique) 2010 [employer]- All Rights Reserved Reading location - IP/workstation name: [email or web address]
[2020-02-26 19:48] LABS: APPEARANCE,URINE CLEAR; BILIRUBIN,URINE NEGATIVE (NEGATIVE); COLOR,URINE YELLOW; GLUCOSE, URINE NEGATIVE (NEGATIVE); KETONES,URINE NEGATIVE (NEGATIVE); LEUKOCYTE ESTERASE,URINE NEGATIVE (NEGATIVE); NITRITE,URINE NEGATIVE (NEGATIVE); PROTEIN,URINE NEGATIVE (NEGATIVE); URINE SPECIFIC GRAVITY 1.036; UROBILINOGEN,URINE NEGATIVE mg/dL (<2.0)
[2020-02-26] MEDS ORDERED: FUROSEMIDE 20 MG TABLET PO ONE (19:51)
[2020-02-26 20:09] VITALS: BP 95/84
--- NOTE | 2020-02-28 11:15 | EKG REPORT ---
SEVERITY:- ABNORMAL ECG - SINUS RHYTHM PROBABLE LEFT ATRIAL ABNORMALITY BORDERLINE LEFT AXIS DEVIATION BORDERLINE T WAVE ABNORMALITIES PROLONGED QT INTERVAL : Confirmed by: Claudio Maguire MD 28-Feb-2020 11:14:28
== END 2020-02-26 20:16 | disposition home or self-care (01) ==
LOC: ER 13:14
DX: I11.0 Hypertensive heart disease with heart failure (principal); I50.9 Heart failure, unspecified; N20.0 Calculus of kidney; R10.13 Epigastric pain; R10.816 Epigastric abdominal tenderness; R06.02 Shortness of breath; F17.210 Nicotine dependence, cigarettes, uncomplicated; Z79.899 Other long term (current) drug therapy; Z79.82 Long term (current) use of aspirin; Z90.49 Acquired absence of other specified parts of digestive tract; Z88.0 Allergy status to penicillin; Z82.49 Family history of ischemic heart disease and other diseases of the circulatory system
CPT/HCPCS: 36415; 71045; 71260; 74177; 80053; 81001; 83690; 83735; 83880; 84484; 85025; 93005; 93010; 99285